=== PATIENT | female | born 1960 | race Caucasian/White ===

== ENCOUNTER 2024-07-15 12:28 | Inpatient (IN) | payer MEDICAID, SELFPAY ==
[2024-07-15] VITALS (13 sets, daily range): BP systolic 135–191; BP diastolic 83–124; PULSE 80–107; RESP 10–29; TEMP 36.5–37.1; O2SAT 91–100; BMI 22.6
--- NOTE | 2024-07-15 14:39 | XR_ITS ---
Examination: AP lateral chest 2 views Technique: Upright AP lateral chest 2 views Exam date and time: July 15, 2024 1414 hrs. Indications: Chest pain today Findings: Normal heart size Lungs are clear. The osseous structures are intact Impression: No active disease
--- NOTE | 2024-07-15 14:39 | EKG_ITS ---
[facility] Test Date: 2024-07-15 Pat Name: OK PETERS Department: Room: - Gender: Female Lab Asst: : 1960 Requested By: Pastora Rodríguez Order Number: [id number] Reading MD: Pastora Rodríguez Measurements Intervals Sch[place]er Rate: 94 P: 71 [place]: 141 QRS: 63 QRSD: 110 T: 38 QT: 356 QTc: 446 Interpretive Statements SINUS RHYTHM NONSPECIFIC ST & T-WAVE ABNORMALITY Compared to ECG 02/16/2023 12:24:50 T-wave abnormality now present /store/S0/[id number].pdf
--- NOTE | 2024-07-15 14:40 | XR_ITS ---
Examination: Hand, right 2 views Technique: Hand AP, lateral 2 views Date and time of exam: July 15, 2024 1510 hrs. Indications: Patient fell 2 days ago with injury to the hand, hand pain Findings: Acute comminuted fractures proximal phalanx fourth digit, 2 mm separation of the main fracture fragments Old fracture fifth metacarpal Impression: Acute fractures proximal phalanx fourth digit
--- NOTE | 2024-07-15 14:40 | PD.EDRME ---
Rapid Medical Screening Exam RME Arrival date/time: 07/15/24 12:28 This is a 63-year-old female that comes in with complaints of vomiting, dizziness, feeling lightheaded, and shortness of breath that has been going on for the past few days. Patient had a fall and injured her right hand. Patient had no loss of consciousness per patient. Patient denies neck or back pain. Patient has a history of hypothyroidism, high blood pressure, high for lipidemia, and reports no surgical history. I have greeted and performed a focused initial assessment of this patient. Initial appropriate labs ordered at this time. A comprehensive ED assessment and evaluation of the patient and analysis of all test and completion of medical decision making process will be conducted by additional ED provider. Chief Complaint: Nausea/Vomiting/Diarrhea Time Seen by Provider: 07/15/24 14:17 Vital signs: Vital Signs Temperature 97.7 F 07/15/24 14:10 Pulse Rate 93 07/15/24 14:10 Respiratory Rate 18 07/15/24 14:10 Blood Pressure 135/83 H 07/15/24 14:10 Pulse Oximetry (%) 98 07/15/24 14:10 Oxygen Delivery Method Room Air 07/15/24 14:10
[2024-07-15 15:16] LABS: Basophils % (Auto) 0 % (0-2.5); Eosinophils # (Auto) 0.1 Thou/mm3 (0.0-0.5); Eosinophils % (Auto) 1 % (0-10); Hematocrit 28.6 % (36.0-46.0); Hemoglobin 9.5 g/dL (12.0-16.0); Immature Granulocytes % (Auto) 0 % (0-0); Immature Granulocytes Auto 0.03 Thou/mm3 (0.00-0.00); Lymphocytes # (Auto) 0.9 Thou/mm3 (1.0-4.8); Lymphocytes % (Auto) 10 % (10-50); Mean Corpuscular HGB Conc 33.2 g/dl (31.0-37.0); Mean Corpuscular Hemoglobin 22.9 pg (25.0-35.0); Mean Corpuscular Volume 69 fL (80-100); Monocytes # (Auto) 0.7 Thou/mm3 (0.0-0.8); Monocytes % (Auto) 8 % (0-12); Neutrophils % (Auto) 81 % (37-80); Nucleated Red Blood Cell % 0 /100 WBC (0); Platelet Count 290 Thou/mm3 (140-440); RDW Standard Deviation 37.3 fL (36.4-46.3); Red Blood Count 4.14 Miln/mm3 (4.00-5.20); White Blood Count 8.7 Thou/mm3 (3.6-11.0)
[2024-07-15 15:40] LABS: B-Type Natriuretic Peptide < 20 pg/mL (0-100)
[2024-07-15 15:45] LABS: Alanine Aminotransferase 17 U/L (10-49); Albumin, Serum 5.1 gm/dL (3.4-4.8); Albumin/Globulin Ratio 1.9 (1.2-2.2); Alkaline Phosphatase 92 U/L (46-116); Anion Gap 10 (7-16); Aspartate Amino Transferase 17 U/L (0-34); BUN/Creatinine Ratio 12 Ratio (12-20); Bilirubin,Total 0.8 mg/dL (0.3-1.2); Blood Urea Nitrogen 20 mg/dL (9-23); Calcium 9.5 mg/dL (8.3-10.6); Calcium (Corrected) 9.5 mg/dL (8.5-10.1); Carbon Dioxide 24.7 mMol/L (20.0-31.0); Chloride 81 mMol/L (98-107); Creatinine (Component) 1.7 mg/dL (0.6-1.3); Estimated Creatinine Clearance 32.1 mL/min (>60); Globulin 2.7 gm/dL (2.3-3.5); Glucose 380 mg/dL (74-106); Lipase 28 U/L (12-53); Osmolality,Calculated 253 (275-295); Potassium 3.5 mMol/L (3.4-5.1); Sodium 116 mMol/L (136-145); Total Protein 7.8 gm/dL (5.7-8.2); Troponin I < 0.020 ng/mL (0.0-0.045); eGFR 34 See Note
--- NOTE | 2024-07-15 18:02 | PD.EDADULT ---
ED General RME/HPI General Chief complaint: Nausea/Vomiting/Diarrhea Stated complaint: NAUSEA AND VOMITING WITH FALL Time Seen by Provider: 07/15/24 14:17 Arrival date/time: 07/15/24 12:28 RME / HPI RME / HPI narrative: 07/15/24 12:28 This is a 63-year-old female that comes in with complaints of vomiting, dizziness, feeling lightheaded, and shortness of breath that has been going on for the past few days. Patient had a fall and injured her right hand. Patient had no loss of consciousness per patient. Patient denies neck or back pain. Patient has a history of hypothyroidism, high blood pressure, high for lipidemia, and reports no surgical history. I have greeted and performed a focused initial assessment of this patient. Initial appropriate labs ordered at this time. A comprehensive ED assessment and evaluation of the patient and analysis of all test and completion of medical decision making process will be conducted by additional ED provider. --------- This section includes all my notes and documentations, including HPI, PE, and ED course. Atul Jolley MD HPI: 63yo female presents to the ED for complaints of nausea and vomiting x 1 week. Patient states she's been feeling generally weak due to having a decreased appetite 2/2 vomiting all week. Patient states yesterday when she was going to the bathroom, she felt weak and dizzy, reporting she fell and hit her right hand on the dresser. She denies any head strikes or loss of consciousness. She endorses having a cough and generalized abdominal pain. She denies any fever, chills or any other associated symptoms. No other symptoms reported. ROS: All negative except as documented in HPI. Physical Exam: General: Alert and oriented. No acute distress when remaining still. Eyes: Conjunctivae and lids clear. ENT: No nasal congestion. Neck: Supple. Heart: RRR. Lungs: No respiratory distress. Good air movement. No rhonchi, wheezing, rales. Abdomen: Soft and nontender. Legs: No clubbing, cyanosis, edema. Skin: Warm and dry. Neuro: Alert and oriented X 3. Cranial nerves II through XII grossly normal. No peripheral motor deficits. Musculoskeletal: Remarkable for right hand tenderness and edema and ecchymosis. All other major joints and bones are not tender with no limited range of motion. I reviewed all diagnostic test results. My interpretation of the EKG is sinus rhythm with nonspecific ST?T changes. My interpretation of the chest x-ray is no acute findings. My interpretation of the right hand x-rays is fourth metacarpal fracture. My review of the head CT report is no acute findings. My review of the abdominal CT report is no acute findings. Blood tests remarkable for Na 117, Cr 1.7, and Glu 380. COVID/influenza/RSV negative. At this point, diagnoses include: Hyponatremia, Hand fracture, right, Fall at home, Vomiting, Generalized weakness, TRISTAN (acute kidney injury), Hyperglycemia Treatment here included IV fluid and IV Zofran and right hand splint. Patient remained stable. I discussed the case with our ICU. About the presentation and exam and diagnostics and treatments here. And need of further care in the hospital. Will accept the patient. Atul Jolley MD Related Data Home Medications ?Medication ?Instructions ?Recorded ?Confirmed levothyroxine 150 mcg tablet 150 mcg PO QDAY 04/29/22 03/22/23 ergocalciferol (vitamin D2) 200 10 mcg PO QDAY 10/21/22 03/22/23 mcg/mL (8,000 unit/mL) oral drops gabapentin 300 mg capsule 300 mg PO HS 01/27/23 03/22/23 trazodone 100 mg tablet 200 mg PO HS 01/27/23 03/22/23 sitagliptin phosphate 50 1 tab PO BID 01/28/23 03/22/23 mg-metformin 1,000 mg tablet (Janumet) buspirone 10 mg tablet 10 mg PO QDAY 03/18/23 03/18/23 hydroxyzine HCl 25 mg tablet 25 mg PO HS 03/18/23 03/18/23 meloxicam 7.5 mg tablet 7.5 mg PO BID PRN Muscle Pain 03/18/23 03/18/23 naproxen 375 mg tablet 375 mg PO TID 03/18/23 03/18/23 simvastatin 80 mg tablet 80 mg PO QDAY 03/18/23 03/18/23 tizanidine 4 mg tablet 4 mg HS PRN Muscle Spasm 03/18/23 03/18/23 Previous Rx's ?Medication ?Instructions ?Recorded amoxicillin 875 mg-potassium 1 tab PO BID #3 tabs 03/23/23 clavulanate 125 mg tablet hydrocodone 5 mg-acetaminophen 325 1 - 2 tab PO Q6H PRN pain #30 tabs 06/20/ mg tablet sodium chloride 1,000 mg soluble 1,000 mg PO QDAY #10 tabs 08/12/23 tablet albuterol sulfate 90 mcg/actuation 1 puff inhalation QID PRN 09/14/23 aerosol inhaler shortness of breath or wheezing #8.5 grams prednisone 50 mg tablet 50 mg PO QDAY #5 tabs 09/14/23 sodium chloride 1,000 mg soluble 1,000 mg PO QDAY #30 tabs 09/14/23 tablet Allergies Allergy/AdvReac Type Severity Reaction Status Date / Time No Known Allergies Allergy Verified 09/14/23 13:05 Review of Systems Review of Systems Systems Reviewed: All systems reviewed, normal except as documented Past Medical History Past Medical History NEUROLOGIC: Positive Cerebrovascular Accident; Negative Neurological Disorders, Seizures or Traumatic Brain Injury CARDIAC: Positive Hypercholesterolemia; Negative Cardiac Disorders, Congestive Heart Failure or Hypertension RESPIRATORY: Negative Chronic Obstructive Pulmonary Disease (COPD) GASTROINTESTINAL: Positive Gastrointestinal Disorders, Colorectal Cancer, Hemorrhoids and Gastroesophageal Reflux Disease; Negative Hepatitis, Gastrointestinal Bleed, Ulcer or Hiatal Hernia GENITOURINARY: Negative Genitourinary Disorders or Renal Disease REPRODUCTIVE: Positive Previous Pregnancies; Negative Pelvic Inflammatory Disease MUSCULOSKELETAL: Positive Musculoskeletal Disorders and Arthritis; Negative Osteoporosis or Fractures ENT: Negative Cataracts, Glaucoma or Deafness ENDOCRINE: Positive Endocrine Disorders, Diabetes Mellitus Type 2 and Hypothyroidism; Negative Diabetes Mellitus Type 1 HEMATOLOGIC: Negative Blood Disorders PSYCHO/SOCIAL: Negative Depression or Anxiety OTHER HISTORY: Positive Chemotherapy, Radiation Therapy, Chicken Pox, Measles, Cancer and Colorectal Cancer; Negative Hospitalization, Autoimmune Disease, Shingles, Blood Transfusions, Anesthesia Reactions, MRSA or Mumps Family History FAMILY HISTORY: Positive Family Cardiac Disorders, Family Cancer and Family Surgery; Negative Family Psychiatric Problems, Family Respiratory Disorders, Family Gastrointestinal Problems or Family Anesthesia Reaction Surgical History SURGICAL: Positive Bowel Surgery and Arthroscopy; Negative Pacemaker Social History SMOKING STATUS: Never smoker SUBSTANCE USE: does not use ED Exam Narrative Physical exam: As noted in HPI. Course Quality Measures none Orders Category Date Time Status Bedside COVID-19 Antigen Test NOW Care 07/15/24 18:07 Active COVID-19 Screening Questionnaire NOW Care 07/15/24 20:39 Active Decision to Admit X1 Care 07/15/24 20:39 Active EKG (ED ONLY) *Do not use* NOW Care 07/15/24 14:39 Completed Saline [Insert IV] NOW Care 07/15/24 18:08 Active Splint / Immobilizer STAT Care 07/15/24 19:52 Active Straight [In and Out Catheter] X1 Care 07/15/24 18:[address] abdomen pelvis wo con Stat Exams 07/15/24 18:[address] head/brain wo con Stat Exams 07/15/24 18:09 Completed EKG (ED Only) Stat Exams 07/15/24 14:39 Draft XR chest 2V Stat Exams 07/15/24 14:39 Completed XR hand RT 2V Stat Exams 07/15/24 14:40 Completed Amylase Stat Lab 07/15/24 15:02 Completed BNP [B-Type Natriuretic Peptide] Stat Lab 07/15/24 15:02 Completed CBC Stat Lab 07/15/24 15:02 Completed Comprehensive Metabolic Panel Stat Lab 07/15/24 15:02 Completed Influenza A & B Rapid Panel Stat Lab 07/15/24 18:48 Completed Lipase Stat Lab 07/15/24 15:02 Completed Magnesium Stat Lab 07/15/24 15:02 Completed RSV [Respiratory Syncytial Virus Ag] Stat Lab 07/15/24 18:46 Completed Troponin I Stat Lab 07/15/24 15:02 Completed Urinalysis, C/S if Indicated Stat Lab 07/15/24 14:40 Ordered Ondansetron Inj [Zofran Inj] Med 07/15/24 18:08 Discontinued 4 mg IV X1 ONE Sodium Chloride 0.9% 1000 ml [Ns] 1,000 ml Med 07/15/24 18:08 Discontinued IV 999 mls/hr Vital Signs Vital signs: Vital Signs Temperature 97.7 F 07/15/24 14:10 Pulse Rate 93 07/15/24 14:10 Respiratory Rate 18 07/15/24 14:10 Blood Pressure 135/83 H 07/15/24 14:10 Pulse Oximetry (%) 98 07/15/24 14:10 Oxygen Delivery Method Room Air 07/15/24 14:10 [facility] Patient data External records reviewed:: [facility] previous records (Per chart review, patient was seen here on 09/14/23 for bronchitis.) Clinical information provided by:: patient Social determinants that could affect healthcare access:: none Patient has the following chronic illnesses:: CVA, DMII, hypothyroidism, GERD How is presenting disease/condition affected by chronic disease/condition?: uneffected by Evaluation data The following diagnostics were reviewed and interpreted by me:: lab results, radiology exam(s) and EKG tracing(s) (My interpretation of the EKG is: Sinus rhythm (94 bpm) with nonspecific ST-T changes. Atul Jolley MD) Lab and/or radiology exams considered but not ordered:: none Interpretation Summary: Hyponatremia, Hand fracture, right, Fall at home, Vomiting, Generalized weakness, TRISTAN (acute kidney injury), Hyperglycemia Medications Medications considered but not ordered:: none Medication administrations:: Medication Administration History Discontinued Medications Sodium Chloride (Ns) 1,000 mls @ 999 mls/hr IV .Q1H1M ONE Stop: 07/15/24 19:08 Last Admin: 07/15/24 19:01 Dose: 999 mls/hr Documented By: NAHID Ondansetron HCl (Ondansetron Inj 2 Mg/Ml Inj 2 Ml) 4 mg IV X1 ONE; Protocol Stop: 07/15/24 18:09 Last Admin: 07/15/24 19:00 Dose: 4 mg Documented By: NAHID IV fluid normal saline and Zofran Consultations Consultation(s) initiated? (list below): Yes Consultation #1 (Physician, Specialty, Details): Discussed case with [the resident physician, attending Dr. De La Fuente] from Hospitalist service regarding admission. Discussed patients ED course, exam findings, labs, and radiology results. The Hospitalist states to call ICU due to the patient's sodium being too low. Time: 20:24 Consultation #2 (Physician, Specialty, Details): Discussed case with [Dr. Lazcano, the ICU resident] from Hospitalist service regarding admission. Discussed patients ED course, exam findings, labs, and radiology results. The Hospitalist [agrees] to accept the patient for admission. Time: 20:27 Diagnosis Differential Diagnosis ED Complaint MDM: fracture, contusion, dehydration, electrolyte abnormality, URI, pneumonia Most likely diagnosis given after review of the tests above:: Hyponatremia, Hand fracture, right, Fall at home, Vomiting, Generalized weakness, TRISTAN (acute kidney injury), Hyperglycemia Admission Indicated Admission indicated?: indicated Explain why admission is indicated or not indicated:: Admission criteria met. Admission Request Was there a request for admission?: Yes Admission Attestation Admission request attestation: Discussed case with ICU service regarding admission. Discussed patients ED course, exam findings, labs, and radiology results. The Hospitalist [agrees,declines] to accept the patient for admission. Disposition Plan Disposition Plan: Admit Medical Decision Making MDM Narrative MDM Narrative: Scribe Attestation: 07/15/24 Keisha Mcfarland am scribing for and in the presence of Dr. Jolley. Differential Diagnosis Differential Diagnosis: fracture, contusion, dehydration, electrolyte abnormality, URI, pneumonia Lab Data 07/15/24 15:02 07/15/24 15:02 Labs: Lab Results 07/15/24 07/15/24 07/15/24 Range/Units 15:02 18:46 18:48 WBC 8.7 (3.6-11.0) Thou/mm3 RBC 4.14 (4.00-5.20) Miln/mm3 Hgb 9.5 L (12.0-16.0) g/dL Hct 28.6 L (36.0-46.0) % MCV 69 L (80-100) fL MCH 22.9 L (25.0-35.0) pg MCHC 33.2 (31.0-37.0) g/dl RDW Std Deviation 37.3 (36.4-46.3) fL Plt Count 290 (140-440) Thou/mm3 Neut % (Auto) 81 H (37-80) % Lymph % (Auto) 10 (10-50) % Saunders % (Auto) 8 (0-12) % Eos % (Auto) 1 (0-10) % Baso % (Auto) 0 (0-2.5) % Neut # (Auto) 7.0 (1.8-7.7) Thou/mm3 Lymph # (Auto) 0.9 L (1.0-4.8) Thou/mm3 Saunders # (Auto) 0.7 (0.0-0.8) Thou/mm3 Eos # (Auto) 0.1 (0.0-0.5) Thou/mm3 Baso # (Auto) 0.0 (0.0-0.2) Thou/mm3 Immature Gran # (Auto) 0.03 H (0.00-0.00) Thou/mm3 Absolute Nucleated RBC 0.00 (0.00-0.00) Thou/mm3 Immature Gran % 0 (0-0) % Nucleated RBC % 0 (0) /100 WBC Sodium 116 L* (136-145) mMol/L Potassium 3.5 (3.4-5.1) mMol/L Chloride 81 L (98-107) mMol/L Carbon Dioxide 24.7 (20.0-31.0) mMol/L Anion Gap 10 (7-16) BUN 20 (9-23) mg/dL Creatinine 1.7 H (0.6-1.3) mg/dL Estim Creat Clear Calc 32.1 L (>60) mL/min eGFR 34 L (60 - ) See Note BUN/Creatinine Ratio 12 (12-20) Ratio Glucose 380 H (74-106) mg/dL Calculated Osmolality 253 L (275-295) Calcium 9.5 (8.3-10.6) mg/dL Corrected Calcium 9.5 (8.5-10.1) mg/dL Magnesium 1.6 (1.6-2.6) mg/dL Total Bilirubin 0.8 (0.3-1.2) mg/dL AST 17 (0-34) U/L ALT 17 (10-49) U/L Alkaline Phosphatase 92 (46-116) U/L Troponin I < 0.020 (0.0-0.045) ng/mL B-Natriuretic Peptide < 20 (0-100) pg/mL Total Protein 7.8 (5.7-8.2) gm/dL Albumin 5.1 H (3.4-4.8) gm/dL Globulin 2.7 (2.3-3.5) gm/dL Albumin/Globulin Ratio 1.9 (1.2-2.2) Amylase 48 (30-118) U/L Lipase 28 (12-53) U/L Influenza A (Rapid) Negative Influenza B (Rapid) Negative RSV Rapid Negative (Negative) Discharge Plan Plan Patient Disposition: Admit Acute Care w/in Hospital Prescriptions/Referrals Prescriptions/Med Rec: No Action levothyroxine 150 mcg tablet 150 mcg PO QDAY Patient Comments: TAKE 1 TABLET BY MOUTH EVERY DAY ergocalciferol (vitamin D2) 200 mcg/mL (8,000 unit/mL) Drops 10 mcg PO QDAY trazodone 100 mg Tablet 200 mg PO HS gabapentin 300 mg Capsule 300 mg PO HS Janumet 50-1,000 mg tablet 1 tab PO BID Patient Comments: TAKE 1 TABLET BY MOUTH TWICE A DAY hydrocodone-acetaminophen 5-325 mg tablet 1 - 2 tab PO Q6H MDD 8 PRN (Reason: pain) Qty: 30 0RF sodium chloride 1,000 mg tablet,soluble 1,000 mg PO QDAY Qty: 10 0RF prednisone 50 mg tablet 50 mg PO QDAY Qty: 5 0RF albuterol sulfate 90 mcg/actuation HFA aerosol inhaler 1 puff inhalation QID PRN (Reason: shortness of breath or wheezing) Qty: 8.5 0RF sodium chloride 1,000 mg tablet,soluble 1,000 mg PO QDAY Qty: 30 0RF meloxicam 7.5 mg tablet 7.5 mg PO BID PRN (Reason: Muscle Pain) naproxen 375 mg tablet 375 mg PO TID Patient Comments: 1 TABLET 3 TIMES A DAY tizanidine 4 mg Tablet 4 mg HS PRN (Reason: Muscle Spasm) simvastatin 80 mg tablet 80 mg PO QDAY Patient Comments: TAKE 1 TABLET BY MOUTH EVERY DAY buspirone 10 mg tablet 10 mg PO QDAY Patient Comments: TAKE 1 TABLET BY MOUTH EVERY DAY hydroxyzine HCl 25 mg tablet 25 mg PO HS Patient Comments: TAKE 1 TABLET BY MOUTH EVERYDAY AT NIGHT amoxicillin-pot clavulanate 875-125 mg tablet 1 tab PO BID Qty: 3 0RF Referrals: Magdalene Aquino CARDIAC EXERCISE PHYSIOLOGIST [Primary Care Provider] - In 1 week Problem List Clinical Impression: Hyponatremia, Hand fracture, right, Fall at home, Vomiting, Generalized weakness, TRISTAN (acute kidney injury), Hyperglycemia Patient/Caregiver Discharge Instructions Print Language: Pakistani Stand Alone Forms: [facility] Award Info., Patient Portal Info Letter
--- NOTE | 2024-07-15 18:09 | XR_ITS ---
Examination: CT abdomen and pelvis without contrast. Coronal 3-D reconstructions. Sagittal 2-D reconstructions. Date and time of exam:July 15, 2024 1913 hrs. Comparison September 14, 2023 Indications: Nausea vomiting beginning 4 days ago CTDI: vol (mGy): 10.9 DLP: (mGycm): 651 Technique: Axial images of the abdomen have been obtained, 3 mm slice thickness Intravenous contrast material has not been administered. Low dose protocols were performed. One or more of the following dose reduction techniques were used; automated exposure control, adjustment of the mA and/or KV according to patient size, use of iterative reconstruction technique. Findings: No focal liver or splenic lesion No definite gallstones No pancreatic mass Perinephric stranding Mild to moderate bilateral renal parenchymal scar formation Aorta normal size No pericecal inflammatory change Abundant air and stool in the rectosigmoid No diverticulitis Urinary bladder intact Absent uterus Prominent osteopenia Impression: Perinephric stranding with mild to moderate bilateral renal parenchymal scar formation, no hydronephrosis or ureteral calculi No CT findings of bowel obstruction diverticulitis or appendicitis
--- NOTE | 2024-07-15 18:09 | XR_ITS ---
Examination: CT brain head without contrast. 2-D sagittal coronal reconstructions Date and time of exam:July 15, 2024 1911 hrs. Indications: Onset weakness beginning 4 days ago Comparison: February 16, 2023 CTDI: vol (mGy):45.2 DLP: (mGycm):905 Technique: Multiple CT axial sections of the brain have been obtained, 5 mm slice thickness. Contrast has not been administered. 2-D sagittal, coronal reconstructions have been obtained Low dose protocols were performed. One or more of the following dose reduction techniques were used; automated exposure control, adjustment of the mA and/or KV according to patient size, use of iterative reconstruction technique. Findings: No significant ventricular enlargement. Fairly prominent chronic microvascular white matter change Intra-axial or extra-axial hemorrhage density is not seen. No mass effect or midline shift Basal cisterns are not remarkable. Fourth ventricle is midline. Cranial vault intact. Impression: Negative for acute hemorrhage, mass effect or midline shift Advise clinical correlation and follow-up accordingly
[2024-07-15] MEDS: ONDANSETRON INJ 2 MG/ML INJ 2 ML 4 MG IV (19:00)
[2024-07-15] MEDS: SODIUM CHLORIDE 0.9% 1000 ML 1,000 ML 999 ML IV ×2 (19:01→23:39)
[2024-07-15 19:17] LABS: Amylase 48 U/L (30-118); Magnesium 1.6 mg/dL (1.6-2.6)
[2024-07-15 19:32] LABS: Influenza A Ag Negative; Influenza B Ag Negative
[2024-07-15 19:35] LABS: Respiratory Syncytial Virus Ag Negative (Negative)
[2024-07-15 22:30] LABS: Beta Hydroxybutyrate 0.1 mmol/L (<0.6)
[2024-07-15 22:59] LABS: Alanine Aminotransferase 13 U/L (10-49); Albumin, Serum 4.4 gm/dL (3.4-4.8); Albumin/Globulin Ratio 1.6 (1.2-2.2); Alkaline Phosphatase 85 U/L (46-116); Anion Gap 12 (7-16); Aspartate Amino Transferase 25 U/L (0-34); BUN/Creatinine Ratio 12 Ratio (12-20); Bilirubin,Total 0.7 mg/dL (0.3-1.2); Blood Urea Nitrogen 21 mg/dL (9-23); Calcium 9.2 mg/dL (8.3-10.6); Calcium (Corrected) 9.2 mg/dL (8.5-10.1); Carbon Dioxide 22.8 mMol/L (20.0-31.0); Chloride 88 mMol/L (98-107); Creatinine (Component) 1.7 mg/dL (0.6-1.3); Estimated Creatinine Clearance 32.1 mL/min (>60); Globulin 2.7 gm/dL (2.3-3.5); Glucose 332 mg/dL (74-106); Osmolality,Calculated 263 (275-295); Potassium 3.2 mMol/L (3.4-5.1); Sodium 123 mMol/L (136-145); Total Protein 7.1 gm/dL (5.7-8.2); eGFR 34 See Note
[2024-07-15 23:04] LABS: Base Excess -1 (-3-3); HCO3 24 mEq/L (20-26); Inspired Oxygen, FIO2 21 %; O2 Saturation 93 % (91-98); PCO2 39 mmHg (32.0-48.0); PO2 64 mmHg (83-108)
[2024-07-15 23:05] LABS: Allen Test Performed/OK; Puncture Site Right Brachial
[2024-07-15] MEDS: HEPARIN SOD INJ 5000 UNIT/ML VIAL SC (23:30)
[2024-07-15] MEDS: cefTRIAXone/D5w 1gm IV premix 50 ML IV (23:30)
[2024-07-15] MEDS: HYDROcodone/APAP 5/325 TABLET 1 TAB PO (23:37)
[2024-07-15] MEDS: Magnesium Sulfate 2 GM Ivpb 2 GM/50 ML BAG IV (23:56)
[2024-07-15] MEDS: POTASSIUM CHLORIDE 20 mEq TABCR 40 MEQ PO (23:56)
[2024-07-16] VITALS (13 sets, daily range): BP systolic 126–194; BP diastolic 68–117; PULSE 85–114; RESP 15–20; TEMP 36.7–37.3; O2SAT 88–100
--- NOTE | 2024-07-16 00:07 | ESHP_ITS ---
<Statement entered by Fer De La Fuente MD - 07/16/24 22:06> I Fer De La Fuente MD reviewed the note and agree with the resident's assessment & plan with exceptions as below. I have personally reviewed labs, imaging, home meds/prior records, examined the patient, formulated and discussed management plan with the IM team. A 63-year-old F with Hx of DM hypothyroidism, history of colon resection presented to ED with nausea, vomiting, drowsiness and decrease p.o. intake for past week. Patient noted to have severe symptomatic hypovolemic, hypoosmolar, hyponatremia likely due to extrarenal losses. CT abdomen/pelvis also did not reveal perinephric stranding concerning for pyelonephritis. Administer 3% saline 100 mL x 1 and start on maintenance NS at 125 mL an hour with serum sodium check every 2 hours.. Will start on Rocephin for pyelonephritis. Documentation for date of: 07/16/24 HPI History of Present Illness History of present illness: 63-year-old woman with past medical history of diabetes mellitus type 2, hyperlipidemia, hypothyroidism and colon cancer s/p resection came to the ED due to chief complaint of vomiting, poor oral intake and generalized weakness for 1 week associated to mild abdominal pain and nonproductive cough. she also stated that she was feeling dizzy and sustained a fall injuring her right hand twice she denied LOC. patient denied chest pain, dysuria, melena, hematemesis or any other associated symptoms different than the mentioned above. ED course: Initial vitals: Blood pressure 135/83 HR 93 RR 18 afebrile SpO2 98% on room air Pertinent labs: Hgb 9.5 HCT 28.6, ABGs unremarkable 116, creatinine 1.7, glucose 380, osmolality 263, beta-hydroxybutyrate negative, influenza, COVID and RSV negative Imaging: Chest x-ray was negative for acute disease, hand x-ray showed Acute fractures proximal phalanx fourth digit, CT head was negative, CT abdomen pelvis showed Perinephric stranding with mild to moderate bilateral renal parenchymal scar, formation, no hydronephrosis or ureteral calculi, EKG sinus rhythm no acute ST changes or T wave inversions per my interpretation At the ED the patient received: 1 L bolus NS, The patient will be admitted for further treatment and management of acute symptomatic hypoosmolar hyponatremia and pyelonephritis. Review of Systems Review of Systems Systems Reviewed: All systems reviewed, normal except as documented Past Medical History Past Medical History NEUROLOGIC: Positive Cerebrovascular Accident; Negative Neurological Disorders, Seizures or Traumatic Brain Injury CARDIAC: Positive Hypercholesterolemia; Negative Cardiac Disorders, Congestive Heart Failure or Hypertension RESPIRATORY: Negative Chronic Obstructive Pulmonary Disease (COPD) GASTROINTESTINAL: Positive Gastrointestinal Disorders, Colorectal Cancer, Hemorrhoids and Gastroesophageal Reflux Disease; Negative Hepatitis, Gastrointestinal Bleed, Ulcer or Hiatal Hernia GENITOURINARY: Negative Genitourinary Disorders or Renal Disease REPRODUCTIVE: Positive Previous Pregnancies; Negative Pelvic Inflammatory Disease MUSCULOSKELETAL: Positive Musculoskeletal Disorders and Arthritis; Negative Osteoporosis or Fractures ENT: Negative Cataracts, Glaucoma or Deafness ENDOCRINE: Positive Endocrine Disorders, Diabetes Mellitus Type 2 and Hypothyroidism; Negative Diabetes Mellitus Type 1 HEMATOLOGIC: Negative Blood Disorders PSYCHO/SOCIAL: Negative Depression or Anxiety OTHER HISTORY: Positive Chemotherapy, Radiation Therapy, Chicken Pox, Measles, Cancer and Colorectal Cancer; Negative Hospitalization, Autoimmune Disease, Shingles, Blood Transfusions, Anesthesia Reactions, MRSA or Mumps Family History FAMILY HISTORY: Positive Family Cardiac Disorders, Family Cancer and Family Surgery; Negative Family Psychiatric Problems, Family Respiratory Disorders, Family Gastrointestinal Problems or Family Anesthesia Reaction Surgical History SURGICAL: Positive Bowel Surgery and Arthroscopy; Negative Pacemaker Social History SMOKING STATUS: Never smoker SUBSTANCE USE: does not use Exam Vital Signs Temp Pulse Resp BP Pulse Ox O2 Del Method 97.8 F 82 20 165/95 H 99 Room Air 07/15/24 23:41 07/15/24 23:41 07/15/24 23:41 07/15/24 23:41 07/15/24 23:41 07/15/24 23:41 Narrative Exam General: No acute distress, well appearing, alert, interactive. HEENT: NC/AT, PERRL, EOMI, Good conjugate gaze, dry mucous membranes, oropharynx clear. Neck: Supple, No masses, No adenopathy, carotid pulse 2+ bilaterally without bruits, No JVD, normal range of motion. Chest: Symmetrical, atraumatic, and with equal expansion , Nontender on palpation no deformity and no crepitus. CVS: S1 and S2 present, Regular rate and rhythm, No murmurs, rubs or gallops perceived during auscultation. Lungs: Normal respiratory effort, CTAB, no wheezing, rhonchi or rales perceived during auscultation, No intercostal or subcostal retraction. Abdomen : Soft, mild tenderness to palpation in all abdominal quadrants, no guarding ,no rebound, +BS Extremities: Right hand with immobilizer no edema, warm well perfused, normal tone and ROM, strength and sensation intact, cap refill less than 2, +2 dp equal bilaterally, able to move all 4 extremities spontaneously. Skin: Intact, no rashes, no lesions, no erythema or jaundice noted Neuro: AOx4, reflex symmetric and sensation normal, no focal neurologic deficits noted, GCS 15 Psych: Appropriate mood and affect. Results: Labs 07/15/24 15:02 07/16/24 02:25 Labs: Short CBC 07/15/24 Range/Units 15:02 WBC 8.7 (3.6-11.0) Thou/mm3 Hgb 9.5 L (12.0-16.0) g/dL Hct 28.6 L (36.0-46.0) % Plt Count 290 (140-440) Thou/mm3 BMP 07/15/24 07/15/24 15:02 22:16 Sodium 116 L* 123 L Potassium 3.5 3.2 L Chloride 81 L 88 L Carbon Dioxide 24.7 22.8 BUN 20 21 Creatinine 1.7 H 1.7 H Glucose 380 H 332 H Calcium 9.5 9.2 Cardiac Enzymes 07/15/24 Range/Units 15:02 Troponin I < 0.020 (0.0-0.045) ng/mL Liver Function 07/15/24 07/15/24 Range/Units 15:02 22:16 Total Bilirubin 0.8 0.7 (0.3-1.2) mg/dL AST 17 25 (0-34) U/L ALT 17 13 (10-49) U/L Alkaline Phosphatase 92 85 (46-116) U/L Albumin 5.1 H 4.4 D (3.4-4.8) gm/dL ABG Interpretation ABG results: 07/15/24 22:58 ABG pH 7.40 ABG pCO2 39 ABG pO2 64 L ABG HCO3 24 ABG O2 Saturation 93 ABG Base Excess -1 Quality Measures Quality Measures none Medications Home Medications and Allergies Home Medications ?Medication ?Instructions ?Recorded ?Confirmed ?Type levothyroxine 150 mcg tablet 150 mcg PO QDAY 04/29/22 03/22/23 History ergocalciferol (vitamin D2) 200 10 mcg PO QDAY 10/21/22 03/22/23 History mcg/mL (8,000 unit/mL) oral drops gabapentin 300 mg capsule 300 mg PO HS 01/27/23 03/22/23 History trazodone 100 mg tablet 200 mg PO HS 01/27/23 03/22/23 History sitagliptin phosphate 50 1 tab PO BID 01/28/23 03/22/23 History mg-metformin 1,000 mg tablet (Janumet) buspirone 10 mg tablet 10 mg PO QDAY 03/18/23 03/18/23 History hydroxyzine HCl 25 mg tablet 25 mg PO HS 03/18/23 03/18/23 History meloxicam 7.5 mg tablet 7.5 mg PO BID PRN Muscle Pain 03/18/23 03/18/23 History naproxen 375 mg tablet 375 mg PO TID 03/18/23 03/18/23 History simvastatin 80 mg tablet 80 mg PO QDAY 03/18/23 03/18/23 History tizanidine 4 mg tablet 4 mg HS PRN Muscle Spasm 03/18/23 03/18/23 History Allergies Allergy/AdvReac Type Severity Reaction Status Date / Time No Known Allergies Allergy Verified 09/14/23 13:05 Visit Medications Acetaminophen (Acetaminophen 325 Mg Tablet) 650 mg PO Q4HR PRN PRN Reason: Pain Scale 1-3 fever 100.4 Stop: 08/14/24 21:41 Hydrocodone Bitart/Acetaminophen (Hydrocodone/Apap 5/325 Tablet) 1 tab PO Q6HR PRN PRN Reason: PAIN SCALE 4-10(Mod-Sev Stop: 07/20/24 22:07 Last Admin: 07/15/24 23:37 Dose: 1 tab Dextrose (Dextrose 50%-Water Inj 50 Ml Syringe) 25 ml IV Q15MIN PRN PRN Reason: BG 50-70 responsive npo pt Stop: 08/14/24 23:47 Dextrose (Dextrose 50%-Water Inj 50 Ml Syringe) 50 ml IV Q15MIN PRN PRN Reason: BG <50 OR BG <70 & pt unresponsive Stop: 08/14/24 23:47 Glucagon (Glucagon Inj 1 Mg Vial) 1 mg IM Q15MIN PRN PRN Reason: BG <70, and no IV access Heparin Sodium (Porcine) (Heparin Sod Inj 5000 Unit/Ml Vial) 5,000 unit SC Q8HR [facility] Stop: 07/29/24 21:59 Last Admin: 07/15/24 23:30 Dose: 5,000 unit Ceftriaxone Sodium/Dextrose (Rocephin/D5w 1gm Iv Premix) 50 mls @ 100 mls/hr IV QDAY [facility] Stop: 07/23/24 08:59 Magnesium Sulfate (Magnesium Sulfate Ivpb) 2 gm in 50 mls @ 25 mls/hr IV X1 ONE Stop: 07/16/24 01:36 Last Admin: 07/15/24 23:56 Dose: 25 mls/hr Sodium Chloride (Ns) 1,000 mls @ 50 mls/hr IV .Q20H [facility] Stop: 07/16/24 20:14 Insulin Human Lispro (Insulin Lispro (Admelog) 1 Unit/0.01 Ml Unit) 0 unit SC ACHS [facility]; Protocol Stop: 08/15/24 07:29 Ondansetron HCl (Ondansetron Inj 2 Mg/Ml Inj 2 Ml) 4 mg IV Q6HR PRN PRN Reason: NAUSEA OR VOMITING Stop: 08/14/24 21:55 Pantoprazole Sodium (Pantoprazole Inj 40 Mg Vial) 40 mg IVP QDAY [facility] Stop: 08/15/24 08:59 Discontinued Medications Sodium Chloride (Ns) 1,000 mls @ 999 mls/hr IV .Q1H1M ONE Stop: 07/15/24 19:08 Last Infusion: 07/15/24 21:40 Dose: Infused Sodium Chloride (Ns) 1,000 mls @ 999 mls/hr IV .Q1H1M ONE Stop: 07/15/24 23:07 Last Admin: 07/15/24 23:39 Dose: 999 mls/hr Ceftriaxone Sodium/Dextrose (Rocephin/D5w 1gm Iv Premix) 50 mls @ 100 mls/hr IV X1 ONE Stop: 07/15/24 22:38 Last Admin: 07/15/24 23:28 Dose: Not Given Ceftriaxone Sodium/Dextrose (Rocephin/D5w 1gm Iv Premix) 50 mls @ 100 mls/hr IV X1 ONE Stop: 07/15/24 22:59 Last Infusion: 07/16/24 00:04 Dose: Infused Ondansetron HCl (Ondansetron Inj 2 Mg/Ml Inj 2 Ml) 4 mg IV X1 ONE; Protocol Stop: 07/15/24 18:09 Last Admin: 07/15/24 19:00 Dose: 4 mg Potassium Chloride (Potassium Chloride 20 Meq Tabcr) 40 meq PO X1 ONE Stop: 07/15/24 23:39 Last Admin: 07/15/24 23:56 Dose: 40 meq Assessment & Plan Plan 63-year-old woman with past medical history of diabetes mellitus type 2, hyperlipidemia, hypothyroidism and colon cancer s/p resection came to the ED due to chief complaint of vomiting, poor oral intake and generalized weakness for 1 week associated to mild abdominal pain and nonproductive cough. she also stated that she was feeling dizzy and sustained a fall injuring her right hand twice she denied LOC. patient denied chest pain, dysuria, melena, hematemesis or any other associated symptoms different than the mentioned above. ED course: Initial vitals: Blood pressure 135/83 HR 93 RR 18 afebrile SpO2 98% on room air Pertinent labs: Hgb 9.5 HCT 28.6, ABGs unremarkable 116, creatinine 1.7, glucose 208, osmolality 263, beta-hydroxybutyrate negative, influenza, COVID and RSV negative Imaging: Chest x-ray was negative for acute disease, hand x-ray showed Acute fractures proximal phalanx fourth digit, CT head was negative, CT abdomen pelvis showed Perinephric stranding with mild to moderate bilateral renal parenchymal scar, formation, no hydronephrosis or ureteral calculi, EKG sinus rhythm no acute ST changes or T wave inversions per my interpretation. At the ED the patient received:1 L bolus NS, The patient will be admitted for further treatment and management of acute symptomatic hypoosmolar hyponatremia and pyelonephritis. [employer]: #Dizziness Possibly secondary to dehydration and symptomatic hyponatremia CT head was negative ? Follow-up Na+ every 4 hours CVS: Stable PULM: Stable GI: #Intractable nausea and vomiting Possibly secondary to pyelonephritis vs viral infection? Patient stated that has been presenting nausea and vomiting as well as poor p.o. intake for 1 week ? IV ondansetron as needed for nausea and vomiting RENAL: #Hypoosmolar hyponatremia Most likely secondary to dehydration and hyperglycemia Na+ 116 glucose 380 corrected sodium for hyperglycemia 121 Nephrology was consulted we greatly appreciate recommendations ? IV fluids NS 0.9% 50 cc/h ? Follow-up Na+ every 4 hours ? Avoid overcorrection of Na+ 4 to 6 mEq in 24 hours ? Follow-up CMP #TRISTAN Most likely prerenal in the setting of severe dehydration and poor oral intake Creatinine 1.7 (baseline creatinine 1.0) - IV fluids NS at 50 cc/h - Strict ins and outs - Avoid nephrotoxic drugs - Renally dose medications - Follow-up CMP #Electrolyte imbalance ? Follow-up electrolytes and replete as necessary ENDO: #Diabetes mellitus type 2 Hold home medications ? Accu-Cheks ? Sliding scale insulin ? Hypoglycemia protocol in place #Hyperglycemia Glucose 380 ? Sliding scale insulin ? Continue to monitor closely HEME/ONC: #Acute on chronic anemia Possibly secondary to CKD vs anemia of chronic diseases ? Follow-up CBC ? Transfuse if hemoglobin less than 7 ID: #Pyelonephritis No leukocytosis UA no WBCs, RBCs 4, negative for bacteria otherwise CT abdomen pelvis showed Perinephric stranding with mild to moderate bilateral renal parenchymal scar, formation, no hydronephrosis or ureteral calculi ? IV Rocephin 1 g daily ? Follow-up urine cultures ? Follow-up CBC and CMP MSK: #Right hand injury #Acute fracture of proximal phalanx of fourth digit Secondary to fall hand x-ray showed Acute fractures proximal phalanx fourth digit ? [place] every 6 hours as needed for pain ? IV morphine 1 mg every 4 hours ? Consider orthopedic surgery consult for further recommendations SKIN: Stable FEN: Carbohydrate consistent diet Lines: Peripheral DVT prophylaxis: Heparin GI prophylaxis: Protonix CODE STATUS: DNR Patient discussed with my attending Dr Sudhakar Lazcano MD PGY-3 Disclaimer: Despite multiple revisions, due to the dictation software being used, the document bellow may not be free of grammatical errors including phonetic/typographic errors. However, this does not deter from our commitment to providing health care in the patient's best interest in mind.
[2024-07-16] MEDS: SODIUM CHLORIDE 0.9% 1000 ML 1,000 ML 50 ML IV (01:26)
[2024-07-16 02:51] LABS: Sodium 122 mMol/L (136-145)
[2024-07-16] MEDS: HEPARIN SOD INJ 5000 UNIT/ML VIAL SC ×2 (05:56→23:00)
[2024-07-16] MEDS: LEVOTHYROXINE SODIUM 25 MCG TABLET 125 MCG PO (05:56)
[2024-07-16 05:57] LABS: INR 0.9 (0.9-1.3); Prothrombin Time 10.4 Seconds (9.0-12.2)
[2024-07-16 06:29] LABS: Basophils % (Auto) 0 % (0-2.5); Eosinophils # (Auto) 0.1 Thou/mm3 (0.0-0.5); Eosinophils % (Auto) 1 % (0-10); Hematocrit 25.1 % (36.0-46.0); Immature Granulocytes % (Auto) 0 % (0-0); Immature Granulocytes Auto 0.03 Thou/mm3 (0.00-0.00); Lymphocytes # (Auto) 1.1 Thou/mm3 (1.0-4.8); Lymphocytes % (Auto) 13 % (10-50); Mean Corpuscular HGB Conc 33.1 g/dl (31.0-37.0); Mean Corpuscular Hemoglobin 23.2 pg (25.0-35.0); Mean Corpuscular Volume 70 fL (80-100); Monocytes # (Auto) 0.8 Thou/mm3 (0.0-0.8); Monocytes % (Auto) 9 % (0-12); Neutrophils # (Auto) 6.7 Thou/mm3 (1.8-7.7); Neutrophils % (Auto) 77 % (37-80); Nucleated Red Blood Cell % 0 /100 WBC (0); Platelet Count 240 Thou/mm3 (140-440); RDW Standard Deviation 37.9 fL (36.4-46.3); Red Blood Count 3.57 Miln/mm3 (4.00-5.20); White Blood Count 8.8 Thou/mm3 (3.6-11.0)
[2024-07-16 06:32] LABS: Alanine Aminotransferase 14 U/L (10-49); Albumin, Serum 4.4 gm/dL (3.4-4.8); Albumin/Globulin Ratio 1.8 (1.2-2.2); Alkaline Phosphatase 81 U/L (46-116); Anion Gap 11 (7-16); Aspartate Amino Transferase 27 U/L (0-34); BUN/Creatinine Ratio 14 Ratio (12-20); Bilirubin,Total 0.6 mg/dL (0.3-1.2); Blood Urea Nitrogen 21 mg/dL (9-23); Calcium 9.1 mg/dL (8.3-10.6); Calcium (Corrected) 9.1 mg/dL (8.5-10.1); Carbon Dioxide 23.5 mMol/L (20.0-31.0); Chloride 90 mMol/L (98-107); Creatinine (Component) 1.5 mg/dL (0.6-1.3); Estimated Creatinine Clearance 36.4 mL/min (>60); Globulin 2.4 gm/dL (2.3-3.5); Glucose 295 mg/dL (74-106); Magnesium 2.2 mg/dL (1.6-2.6); Osmolality,Calculated 263 (275-295); Phosphorous 3.8 mg/dL (2.4-5.1); Potassium 3.5 mMol/L (3.4-5.1); Sodium 124 mMol/L (136-145); Total Protein 6.8 gm/dL (5.7-8.2); eGFR 39 See Note
[2024-07-16 06:37] LABS: Hemoglobin 8.3 g/dL (12.0-16.0)
[2024-07-16] MEDS: RINGERS LACTATED 1000 ML 1,000 ML 50 ML IV (08:00)
[2024-07-16] MEDS: HYDROcodone/APAP 5/325 TABLET 1 TAB PO (08:01)
[2024-07-16] MEDS: PANTOPRAZOLE INJ 40 MG VIAL IVP (08:01)
[2024-07-16] MEDS: INSULIN LISPRO (AdmeLOG) 1 UNIT/0.01 ML UNIT SC ×3 (08:05→23:07)
--- NOTE | 2024-07-16 09:13 | PC.NURSE ---
called ICU doc. he will eval pt and most likey down grade to TELE
--- NOTE | 2024-07-16 09:29 | EVENTNT_ITS ---
<Statement entered by Riccardo Hagan MD - 07/16/24 15:31> Care will be assumed by the medical team from tomorrow 17 July 2024. - Patient's plan and care discussed with my attending, Dr. Jay Hagan MD Internal Medicine PGY-2 Documentation for date of: 07/16/24 Event Note Event Note: Sima is a 63-year-old woman with past medical history of diabetes mellitus type 2, hyperlipidemia, hypothyroidism and colon cancer s/p resection who is currently admitted for symptomatic hyponatremia, level of 116 while in the ED, however glucose was ~380, calculated corrected sodium to be 121 is being downgraded to the floors. Pt is currently on LR 50 cc/hr, last sodium check is 124. Head CT negative for any acute process. Pt's care will be resumed by care of internal medicine team starting tomorrow, 07/17. Pt will need orthopedic eval for fractures of proximal phalanx of fourth digit, R hand. Patient seen and care discussed with my senior resident, Dr. Hagan, and my attending physician, Dr. Jay John, PGY-1
[2024-07-16 10:31] LABS: Sodium 128 mMol/L (136-145)
[2024-07-16 10:46] LABS: Glucose Estimated Average 235 mg/dL (80-131); Hemoglobin A1C 9.8 % Hgb (4.8-6.0)
--- NOTE | 2024-07-16 11:13 | PD.NEPHCONS ---
History of Present Illness Data of Consult Consult date: 07/16/24 Requesting Physician: Fer De La Fuente MD Primary Care Provider: Magdalene Aquino NP Consult Narrative Reason for consult: Hyponatremia History of present illness: Ms. hung is a 63-year-old woman with past medical history of diabetes mellitus type 2, hyperlipidemia, hypothyroidism, anxiety, neuropathy and colon cancer s/p resection came to the ED due to chief complaint of vomiting, loose stools, poor oral intake and generalized weakness for 1 week associated to mild abdominal pain and nonproductive cough. she also stated that she was feeling dizzy and sustained a fall injuring her right hand twice. she denied LOC. patient denied chest pain, dysuria, melena, hematemesis. Home medications included albuterol Augmentin BuSpar vitamin D, gabapentin, [place], hydroxyzine, Janumet, levothyroxine, meloxicam, naproxen, prednisone, simvastatin, salt tabs, tizanidine, trazodone Of note patient was noted to have on and off episodes of hyponatremia needing salt tablets. In the emergency department sodium 119, Hgb 9.5 HCT 28.6, ABGs unremarkable 116, creatinine 1.7, glucose 380, osmolality 263, beta-hydroxybutyrate negative, influenza, COVID and RSV negative Imaging: Chest x-ray was negative for acute disease, hand x-ray showed Acute fractures proximal phalanx fourth digit, CT head was negative, CT abdomen pelvis showed Perinephric stranding with mild to moderate bilateral renal parenchymal scar, formation, no hydronephrosis or ureteral calculi, EKG sinus rhythm no acute ST changes or T wave inversions per my interpretation Normal saline was started and patient admitted for symptomatic hyponatremia. Renal consultation requested for hyponatremia. Patient currently seen in the emergency department. She seems to be more alert and awake although nurse stated that on and off she is having episodes of agitation. When I saw her she is completely alert and awake. However her sodium tessie from 119-126 and I started her on D5W to avoid overcorrection cc:: cc: Fer De La Fuente MD Review of Systems Review of Systems Narrative Review of Systems: CONSTITUTIONAL: Patient denies any fever, chills. Complaining of fatigue HEENT: Denies any visual disturbances or hearing problems. CARDIOVASCULAR: Patient denies any chest pain, shortness of breath, swelling in the lower extremities. PULMONARY: Patient denies any shortness of breath, cough. GASTROINTESTINAL: Patient denies any abdominal pain, constipation, nausea, vomiting, diarrhea. GENITOURINARY: Patient denies any urinary symptoms of burning or frequency or hematuria, denies any form in the urine. SKIN: Denies any rash. MUSCULOSKELETAL: Status post fall with right hand pain NEUROLOGICAL: Denies any neurological problems of strokes, seizures or confusion. Denies any memory problems. Per RN on and off agitation PSYCHIATRIC: History of depression or anxiety. Past Medical History Past Medical History NEUROLOGIC: Positive Cerebrovascular Accident; Negative Neurological Disorders, Seizures or Traumatic Brain Injury CARDIAC: Positive Hypercholesterolemia; Negative Cardiac Disorders, Congestive Heart Failure or Hypertension RESPIRATORY: Negative Chronic Obstructive Pulmonary Disease (COPD) GASTROINTESTINAL: Positive Gastrointestinal Disorders, Colorectal Cancer, Hemorrhoids and Gastroesophageal Reflux Disease; Negative Hepatitis, Gastrointestinal Bleed, Ulcer or Hiatal Hernia GENITOURINARY: Negative Genitourinary Disorders or Renal Disease REPRODUCTIVE: Positive Previous Pregnancies; Negative Pelvic Inflammatory Disease MUSCULOSKELETAL: Positive Musculoskeletal Disorders and Arthritis; Negative Osteoporosis or Fractures ENT: Negative Cataracts, Glaucoma or Deafness ENDOCRINE: Positive Endocrine Disorders, Diabetes Mellitus Type 2 and Hypothyroidism; Negative Diabetes Mellitus Type 1 HEMATOLOGIC: Negative Blood Disorders PSYCHO/SOCIAL: Negative Depression or Anxiety OTHER HISTORY: Positive Chemotherapy, Radiation Therapy, Chicken Pox, Measles, Cancer and Colorectal Cancer; Negative Hospitalization, Autoimmune Disease, Shingles, Blood Transfusions, Anesthesia Reactions, MRSA or Mumps Family History FAMILY HISTORY: Positive Family Cardiac Disorders, Family Cancer and Family Surgery; Negative Family Psychiatric Problems, Family Respiratory Disorders, Family Gastrointestinal Problems or Family Anesthesia Reaction Surgical History SURGICAL: Positive Throat Surgery (THYROIDECTOMY), Bowel Surgery and Arthroscopy (right knee); Negative Pacemaker Social History SMOKING STATUS: Never smoker SUBSTANCE USE: does not use Meds Home Medications and Allergies Home Medications ?Medication ?Instructions ?Recorded ?Confirmed ?Type levothyroxine 150 mcg tablet 150 mcg PO QDAY 04/29/22 07/16/24 History ergocalciferol (vitamin D2) 200 10 mcg PO QDAY 10/21/22 07/16/24 History mcg/mL (8,000 unit/mL) oral drops gabapentin 300 mg capsule 300 mg PO HS 01/27/23 07/16/24 History trazodone 100 mg tablet 200 mg PO HS 01/27/23 07/16/24 History sitagliptin phosphate 50 1 tab PO BID 01/28/23 07/16/24 History mg-metformin 1,000 mg tablet (Julvaleria) buspirone 10 mg tablet 10 mg PO QDAY 03/18/23 07/16/24 History hydroxyzine HCl 25 mg tablet 25 mg PO HS 03/18/23 07/16/24 History meloxicam 7.5 mg tablet 7.5 mg PO BID PRN Muscle Pain 03/18/23 07/16/24 History naproxen 375 mg tablet 375 mg PO TID 03/18/23 07/16/24 History simvastatin 80 mg tablet 80 mg PO QDAY 03/18/23 07/16/24 History tizanidine 4 mg tablet 4 mg HS PRN Muscle Spasm 03/18/23 07/16/24 History Allergies Allergy/AdvReac Type Severity Reaction Status Date / Time No Known Allergies Allergy Verified 09/14/23 13:05 Exam Vital Signs Temp Pulse Resp BP Pulse Ox O2 Del Method 36.7 C 108 H 20 129/87 H 92 L Room Air 07/16/24 10:25 07/16/24 10:25 07/16/24 10:25 07/16/24 10:25 07/16/24 10:25 07/16/24 10:25 Narrative Exam GENERAL APPEARANCE: Patient seems to be comfortable, adequately hydrated and nourished. HEENT: EOMI, PERRLA NECK: Neck supple, no JVD or bruit CARDIOVASCULAR: Heart regular, no murmurs LUNGS/CHEST: Chest clear to auscultation. No rales, rhonchi, wheezing ABDOMEN: Soft, nontender, nondistended. No masses. Normal bowel sounds. EXTREMITIES: No edema, clubbing or cyanosis. SKIN: Skin exam normal without any rashes MUSCULOSKELETAL: Right hand swollen NEUROLOGICAL : No neurological deficits, alert and awake Results Labs 07/17/24 05:09 07/17/24 05:09 Labs: Short CBC 07/15/24 07/16/24 Range/Units 15:02 04:40 WBC 8.7 8.8 (3.6-11.0) Thou/mm3 Hgb 9.5 L 8.3 L (12.0-16.0) g/dL Hct 28.6 L 25.1 L (36.0-46.0) % Plt Count 290 240 D (140-440) Thou/mm3 BMP 07/15/24 07/15/24 07/16/24 15:02 22:16 02:25 Sodium 116 L* 123 L 122 L Potassium 3.5 3.2 L Chloride 81 L 88 L Carbon Dioxide 24.7 22.8 BUN 20 21 Creatinine 1.7 H 1.7 H Glucose 380 H 332 H Calcium 9.5 9.2 07/16/24 07/16/24 07/16/24 04:40 04:40 09:59 Sodium 124 L Cancelled 128 L Potassium 3.5 Chloride 90 L Carbon Dioxide 23.5 BUN 21 Creatinine 1.5 H Glucose 295 H Calcium 9.1 Cardiac Enzymes 07/15/24 Range/Units 15:02 Troponin I < 0.020 (0.0-0.045) ng/mL Liver Function 07/15/24 07/15/24 07/16/24 Range/Units 15:02 22:16 04:40 Total Bilirubin 0.8 0.7 0.6 (0.3-1.2) mg/dL AST 17 25 27 (0-34) U/L ALT 17 13 14 (10-49) U/L Alkaline Phosphatase 92 85 81 (46-116) U/L Albumin 5.1 H 4.4 D 4.4 (3.4-4.8) gm/dL ABG Interpretation ABG results: 07/15/24 22:58 ABG pH 7.40 ABG pCO2 39 ABG pO2 64 L ABG HCO3 24 ABG O2 Saturation 93 ABG Base Excess -1 Assessment & Plan Assessment and plan (1) Hyponatremia: Status: Acute Assessment and plan: Hyponatremia secondary to hypovolemic state from nausea, vomiting, loose stools and decreased p.o. intake. Sodium rapidly corrected. Will switch IV fluids to D5W to avoid overcorrection. CT brain negative. Will monitor sodium closely. Patient downgraded from ICU (2) TRISTAN (acute kidney injury): Status: Acute Assessment and plan: TRISTAN secondary to prerenal azotemia. Creatinine started to improve. (3) Hyperglycemia: Status: Acute Assessment and plan: Patient came with a glucose 380. On sliding scale and consistent carb low (4) Hand fracture, right: Status: Acute Assessment and plan: Status post fall with hand fracture. Mathew wrap. (5) Vomiting: Status: Acute Assessment and plan: Question related to gastroenteritis. On Zofran. Additional Assessment & Plan Additional Plan: Thank you Dr. Monroe for allowing me to participate in the care of Ms. Hung
[2024-07-16] MEDS: BusPIRone HCL 5 MG TABLET 10 MG PO (11:48)
[2024-07-16] MEDS: cefTRIAXone 2 GM in SODIUM CHLORIDE 0.9% (P) 50 ML IV (11:58)
--- NOTE | 2024-07-16 12:10 | PC.NURSE ---
WENT TO CHECK ON PT, ON HER LEADS AND CORDS WERE ON THE GROUND AND SHE WAS STATING THAT SHE WAS SEEING A MOUSE ON THE GROUND. PT KNOWS WHERE SHE IS AT, BUT IS SLIGHTLY CONFUSED.MOVED PT TO ROOM 7 TO BE CLOSER TO THE NURSING STATION. PLACED IN [facility]A [facility], BED RAILS UP. WILL CONT TO MONITOR.
[2024-07-16] MEDS: DEXTROSE 5%-WATER 1,000 ML 65 ML IV (13:40)
--- NOTE | 2024-07-16 15:48 | PC.NURSE ---
pt got up out of bed and ripped IV out again, pulled all her lines, placed a sitter on pt for safety
--- NOTE | 2024-07-16 15:48 | PD.RESPRO ---
Documentation for date of: 07/16/24 Subjective Subjective Interval history: Patient was seen and examined at the bedside in ICU. Patient reports no new complaints and lower abdominal pain has resolved. Patient does not have any nausea having been vomiting since night. She is alert and oriented x 3. Her sodium has increased to 138, hypertonic saline was stopped and patient was started on D5W at 65 cc/h. Nephrology is following. At this moment patient is stable and asymptomatic and will be downgraded to medical floor for continuation of management. Exam Vital Signs Temp Pulse Resp BP Pulse Ox O2 Del Method 98.1 F 89 19 160/83 H 99 Room Air 07/16/24 15:33 07/16/24 15:33 07/16/24 15:33 07/16/24 15:33 07/16/24 15:33 07/16/24 15:33 Narrative Exam Gen: Well-developed and well-nourished. HEENT: NCAT, PERRLA, EOMI, MMM, anicteric conjunctivae, poor dentition. CVS: normal S1 and S2. RRR. No M/R/G. Resp: CTA B/L. No rhonchi, rales, crackles or wheezing. Abd: soft, non-tender, non-distended. BS+ in all 4 quadrants. MSK: Good ROM in BUE & BLE. No edema or rash. Right hand is in immobilizer with multiple bruises. Neuro: CN II-XII grossly intact. Strength 5/5 in BUE & BLE. Alert and oriented x3. Psych: appropriate mood and affect. Objective Labs 07/23/24 05:10 07/23/24 05:10 Labs: Laboratory Results - last 24 hr 07/15/24 07/15/24 07/15/24 15:02 18:46 18:48 WBC RBC Hgb Hct MCV MCH MCHC RDW Std Deviation Plt Count Neut % (Auto) Lymph % (Auto) [place] % (Auto) Eos % (Auto) Baso % (Auto) Neut # (Auto) Lymph # (Auto) [place] # (Auto) Eos # (Auto) Baso # (Auto) Immature Gran # (Auto) Absolute Nucleated RBC Immature Gran % Nucleated RBC % PT INR Puncture Site ABG pH ABG pCO2 ABG pO2 ABG HCO3 ABG O2 Saturation ABG Base Excess FiO2 Sodium Potassium Chloride Carbon Dioxide Anion Gap BUN Creatinine Estim Creat Clear Calc eGFR BUN/Creatinine Ratio Glucose Estimated Ave Glu mg/dL Hemoglobin A1c Calculated Osmolality Calcium Corrected Calcium Phosphorus Magnesium 1.6 Total Bilirubin AST ALT Alkaline Phosphatase Total Protein Albumin Globulin Albumin/Globulin Ratio Amylase 48 Beta-Hydroxybutyrate/Acetoacetate Influenza A (Rapid) Negative Influenza B (Rapid) Negative RSV Rapid Negative 07/15/24 07/15/24 07/16/24 22:16 22:58 02:25 WBC RBC Hgb Hct MCV MCH MCHC RDW Std Deviation Plt Count Neut % (Auto) Lymph % (Auto) [place] % (Auto) Eos % (Auto) Baso % (Auto) Neut # (Auto) Lymph # (Auto) [place] # (Auto) Eos # (Auto) Baso # (Auto) Immature Gran # (Auto) Absolute Nucleated RBC Immature Gran % Nucleated RBC % PT INR Puncture Site Right Brachial ABG pH 7.40 ABG pCO2 39 ABG pO2 64 L ABG HCO3 24 ABG O2 Saturation 93 ABG Base Excess -1 FiO2 21 Sodium 123 L 122 L Potassium 3.2 L Chloride 88 L Carbon Dioxide 22.8 Anion Gap 12 BUN 21 Creatinine 1.7 H Estim Creat Clear Calc 32.1 L eGFR 34 L BUN/Creatinine Ratio [address] Glu mg/dL Hemoglobin A1c Calculated Osmolality 263 L Calcium 9.2 Corrected Calcium 9.2 Phosphorus Magnesium Total Bilirubin 0.7 AST 25 ALT 13 Alkaline Phosphatase 85 Total Protein 7.1 Albumin 4.4 D Globulin 2.7 Albumin/Globulin Ratio 1.6 Amylase Beta-Hydroxybutyrate/Acetoacetate 0.1 Influenza A (Rapid) Influenza B (Rapid) RSV Rapid 07/16/24 07/16/24 07/16/24 04:40 04:40 09:59 WBC 8.8 RBC 3.57 L Hgb 8.3 L Hct 25.1 L MCV 70 L MCH 23.2 L MCHC 33.1 RDW Std Deviation 37.9 Plt Count 240 D Neut % (Auto) 77 Lymph % (Auto) 13 [place] % (Auto) 9 Eos % (Auto) 1 Baso % (Auto) 0 Neut # (Auto) 6.7 Lymph # (Auto) 1.1 [place] # (Auto) 0.8 Eos # (Auto) 0.1 Baso # (Auto) 0.0 Immature Gran # (Auto) 0.03 H Absolute Nucleated RBC 0.00 Immature Gran % 0 Nucleated RBC % 0 PT 10.4 INR 0.9 Puncture Site ABG pH ABG pCO2 ABG pO2 ABG HCO3 ABG O2 Saturation ABG Base Excess FiO2 Sodium 124 L Cancelled 128 L Potassium 3.5 Chloride 90 L Carbon Dioxide 23.5 Anion Gap 11 BUN 21 Creatinine 1.5 H Estim Creat Clear Calc 36.4 L eGFR 39 L BUN/Creatinine Ratio [address] Glu mg/dL 235 H Hemoglobin A1c 9.8 H Calculated Osmolality 263 L Calcium 9.1 Corrected Calcium 9.1 Phosphorus 3.8 Magnesium 2.2 Total Bilirubin 0.6 AST 27 ALT 14 Alkaline Phosphatase 81 Total Protein 6.8 Albumin 4.4 Globulin 2.4 Albumin/Globulin Ratio 1.8 Amylase Beta-Hydroxybutyrate/Acetoacetate Influenza A (Rapid) Influenza B (Rapid) RSV Rapid ABG Interpretation ABG results: 07/15/24 22:58 ABG pH 7.40 ABG pCO2 39 ABG pO2 64 L ABG HCO3 24 ABG O2 Saturation 93 ABG Base Excess -1 Quality Measures Quality Measures none Assessment & Plan Assessment Current Active Medications: Generic Name Dose Route Start Last Admin Trade Name Freq PRN Reason Stop Dose Admin Acetaminophen 650 mg 07/15/24 21:42 Acetaminophen 325 Mg Tablet PO 08/14/24 21:41 Q4HR PRN Pain Scale 1-3 fever 100.4 Hydrocodone Bitart/Acetaminophen 1 tab 07/16/24 09:22 Hydrocodone/Apap 5/325 Tablet PO 07/20/24 22:07 Q6HR PRN PAIN SCALE 4-6 (Moderate Buspirone HCl 10 mg 07/16/24 09:30 07/16/24 11:48 Buspirone Hcl 5 Mg Tablet PO 08/15/24 09:29 10 mg QDAY ABRAN Administration Dextrose 25 ml 07/15/24 23:48 Dextrose 50%-Water Inj 50 Ml Syringe IV 08/14/24 23:47 Q15MIN PRN BG 50-70 responsive npo pt Dextrose 50 ml 07/15/24 23:48 Dextrose 50%-Water Inj 50 Ml Syringe IV 08/14/24 23:47 Q15MIN PRN BG <50 OR BG <70 & pt unresponsive Glucagon 1 mg 07/15/24 23:48 Glucagon Inj 1 Mg Vial IM Q15MIN PRN BG <70, and no IV access Heparin Sodium (Porcine) 5,000 unit 07/15/24 22:00 07/16/24 05:56 Heparin Sod Inj 5000 Unit/Ml Vial SC 07/29/24 21:59 5,000 unit Q8HR ABRAN Administration Hydralazine HCl 10 mg 07/16/24 04:46 Hydralazine Inj 20 Mg/Ml Vial IV 08/15/24 04:45 Q6HR PRN SBP > 170 Ceftriaxone Sodium 2 gm/ 50 mls @ 100 mls/hr 07/16/24 09:30 07/16/24 12:59 Sodium Chloride IV 07/23/24 09:29 Infused QDAY ABRAN Infusion Dextrose 1,000 mls @ 65 mls/hr 07/16/24 12:45 07/16/24 13:40 D5w IV 08/15/24 12:44 65 mls/hr .[id number] ABRAN Administration Insulin Human Lispro 0 unit 07/16/24 07:30 07/16/24 11:58 Insulin Lispro (Admelog) 1 Unit/0.01 Ml Unit SC 08/15/24 07:29 4 unit ACHS ABRAN Administration Protocol Levothyroxine Sodium 125 mcg 07/16/24 06:00 07/16/24 05:56 Levothyroxine Sodium 25 Mcg Tablet PO 08/15/24 05:59 125 mcg ACBR ABRAN Administration Morphine Sulfate 1 mg 07/16/24 04:47 Morphine Sulf Inj 10 Mg/Ml Vial IVP 07/21/24 04:46 Q4HR PRN PAIN SCALE 7-10 (Severe Ondansetron HCl 4 mg 07/15/24 21:56 Ondansetron Inj 2 Mg/Ml Inj 2 Ml IV 08/14/24 21:55 Q6HR PRN NAUSEA OR VOMITING Pantoprazole Sodium 40 mg 07/16/24 09:00 07/16/24 08:01 Pantoprazole Inj 40 Mg Vial IVP 08/15/24 08:59 40 mg QDAY ABRAN Administration Trazodone HCl 200 mg 07/16/24 21:00 Trazodone Hcl 50 Mg Tablet PO 08/15/24 20:59 HS ABRAN Plan 63-year-old woman with past medical history of diabetes mellitus type 2, hyperlipidemia, hypothyroidism and colon cancer s/p resection came to the ED due to chief complaint of vomiting, poor oral intake and generalized weakness for 1 week associated to mild abdominal pain and nonproductive cough. she also stated that she was feeling dizzy and sustained a fall injuring her right hand twice she denied LOC. patient denied chest pain, dysuria, melena, hematemesis or any other associated symptoms different than the mentioned above. ED course: Initial vitals: Blood pressure 135/83 HR 93 RR 18 afebrile SpO2 98% on room air Pertinent labs: Hgb 9.5 HCT 28.6, ABGs unremarkable 116, creatinine 1.7, glucose 208, osmolality 263, beta-hydroxybutyrate negative, influenza, COVID and RSV negative Imaging: Chest x-ray was negative for acute disease, hand x-ray showed Acute fractures proximal phalanx fourth digit, CT head was negative, CT abdomen pelvis showed Perinephric stranding with mild to moderate bilateral renal parenchymal scar, formation, no hydronephrosis or ureteral calculi, EKG sinus rhythm no acute ST changes or T wave inversions per my interpretation. At the ED the patient received:1 L bolus NS, The patient will be admitted for further treatment and management of acute symptomatic hypoosmolar hyponatremia and pyelonephritis. 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 Possibly secondary to dehydration and symptomatic hyponatremia. CT head was negative. Plan: ? Follow-up Na+ every 4 hours. CVS: no active problem. PULM: no active problem. GI: #Intractable nausea and vomiting, resolved. Possibly secondary to pyelonephritis vs diabetic gastroparesis vs colon cancer. Patient stated that has been presenting nausea and vomiting as well as poor p.o. intake for 1 week. Plan: ? IV ondansetron as needed for nausea and vomiting. #Hx of colon cancer s/p bowel resection. Patient does not get any treatment currently. RENAL: #Hypoosmolar hyponatremia, improved. Most likely secondary to dehydration and hyperglycemia. Na+ 116 glucose 380 corrected sodium for hyperglycemia 121. Nephrology was consulted we greatly appreciate recommendations. Sodium corrected to 128, started on D5W. Plan: ? IV fluids D5W 65 cc/h. ? Follow-up Na+ every 4 hours ? Avoid overcorrection of Na+ 4 to 6 mEq in 24 hours ? Follow-up CMP #TRISTAN, improved. Most likely prerenal in the setting of severe dehydration and poor oral intake Creatinine 1.7 (baseline creatinine 1.0) improved to 1.5. Plan: - IV fluids. - Strict ins and outs. - Avoid nephrotoxic drugs. - Renally dose medications. - Follow-up CMP. #Electrolyte imbalance. ? Follow-up electrolytes and replete as necessary. ENDO: #Diabetes mellitus type 2. On metformin 500 mg BID at home, remote history of insulin treatment. HgbA1C 9.8%. Plan: ? Hold home medications. ? Accu-Cheks. ? Sliding scale insulin. ? Hypoglycemia protocol in place. #Hyperglycemia. Glucose 380 on admission. Plan: ? Sliding scale insulin. ? Continue to monitor closely. #Hx of hypothyroidism. Pending TSH. Plan: ? continue levothyroxine 125 mcg daily. HEME/ONC: #Acute on chronic anemia. Possibly secondary to CKD vs anemia of chronic diseases. Plan: ? Follow-up CBC. ? Transfuse if hemoglobin less than 7. ID: #?Pyelonephritis. No leukocytosis. UA no WBCs, RBCs 4, negative for bacteria otherwise. CT abdomen pelvis showed Perinephric stranding with mild to moderate bilateral renal parenchymal scar, formation, no hydronephrosis or ureteral calculi. Plan: ? IV Rocephin 2 g daily. ? Follow-up urine cultures. ? Follow-up CBC and CMP. MSK: #Right hand injury. #Acute fracture of proximal phalanx of fourth digit. Secondary to fall, hand x-ray showed Acute fractures proximal phalanx fourth digit. Immobilizer was placed. Plan: ? [place] every 6 hours as needed for pain. ? IV morphine 1 mg every 4 hours. ? Consider orthopedic surgery consult for further recommendations. SKIN: #Intertrigo. Patient reports rash between her breast which is very itchy, consistent with hilton infection. Plan: ? nystatin powder BID. FEN: Carbohydrate consistent diet. Lines: Peripheral lines. DVT prophylaxis: Heparin. GI prophylaxis: Protonix. CODE STATUS: DNR/DNI. Patient discussed with my attending Dr Mueller. Manish Kendall MD PGY-2. Disclaimer: Despite multiple revisions, due to the dictation software being used, the document bellow may not be free of grammatical errors including phonetic/typographic errors. However, this does not deter from our commitment to providing health care in the patient's best interest in mind. Attending Provider Attestation/Addendum Patient seen and examined with above resident, Manish Kendall MD. I agree with the findings, assessment, and plan of care as documented except for any differences below. Patient admitted with hyperosmolar hyponatremia in the setting of pyelonephritis and significant GI losses and inadequate intake. Notably patient had rapid correction of sodium and D5W instituted by nephrology will continue to follow the patient. Patient remains in safe range for avoidance of any neurologic deficits and will be transferred to medicine levi for ongoing management. Patient started on nystatin powder for intertrigo and remains on empiric high-dose Rocephin for pyelonephritis awaiting cultures. Patient with acute fracture of the right hand and will continue with pain control as SIADH may be involved from this. Orthopedic surgery will evaluate and immobilizer was placed already by the emergency department. Patient will continue to be serial monitoring of her sodium level to ensure that correction remained stable range but will ultimately defer any changes to nephrology given their expertise. Total critical care time: I personally spent 30 minutes for review of physiologic parameters, directing plan of care throughout the day, coordination of care with other subspecialties, and counseling patient at bedside. This is exclusive of time spent teaching housestaff or performing any separate billable procedures. Patient will require critical care services for hypoosmolar hyponatremia with severe sepsis. Patient remains at risk for higher morbidity and mortality warranting close monitoring and care only available in the ICU.
--- NOTE | 2024-07-16 17:00 | PC.NURSE ---
CALLED DR ODELL FOR UPDATE - PT BECAME TACHYCARDIC AND HYPERTENSIVE, ALTERED AND REFUSING TO LET ME PUT AN IV IN. HE STATES HE WILL SEND A RESIDENT DOWN.
[2024-07-16 17:19] LABS: Sodium 126 mMol/L (136-145)
--- NOTE | 2024-07-16 17:31 | PC.NURSE ---
amarilys braga called, pt is wanting to leave but sh eis altered and hallucinating. called sister to come help orient her. pt needing restrained at this time. Dr way ordered for restraints.
--- NOTE | 2024-07-16 17:49 | PC.CC ---
Pt Ella Hung is a 63 yr old female admitted to hospitalist services for dizziness, intractable nausea and vomiting, hypoosmolar hyponatemia, TRISTAN, electrolyte imbalance, hyperglycemia. 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 At time of encounter pt is noted to be alert and oriented to person, place and situation. Pt expressed understanding admission order. Pt able to confirm demographic information. Pt is from home [address] [facility] Per pt her sister Felicita Hung [phone] is staying with her to help pt in the home. Pt identifies her sister as surrogate DM. Pt reports being on disability. At baseline pt reports using a 4-wheel rollator to support ambulation. Pt reports her walker is almost non-functional as the wheels do not spin. Pt reports she would like to be independent with her ADLS but states she does need assist to complete. Pt does not require supplemental O2 at home. Pt is diabetic on oral medication for management. Pt is not on dialysis. Pt is followed by [facility] for primary care. At time of D/c pt reports she will D/c home with family providing transport. Pt is a DNR code status.
[2024-07-16 17:52] LABS: Anion Gap 12 (7-16); BUN/Creatinine Ratio 13 Ratio (12-20); Blood Urea Nitrogen 20 mg/dL (9-23); Calcium 9.2 mg/dL (8.3-10.6); Carbon Dioxide 21.5 mMol/L (20.0-31.0); Chloride 93 mMol/L (98-107); Creatinine (Component) 1.5 mg/dL (0.6-1.3); Estimated Creatinine Clearance 36.4 mL/min (>60); Glucose 287 mg/dL (74-106); Osmolality,Calculated 265 (275-295); Potassium 3.4 mMol/L (3.4-5.1); Sodium 126 mMol/L (136-145); Thyroid Stimulating Hormone 0.09 uIU/mL (0.55-4.78); eGFR 39 See Note
--- NOTE | 2024-07-16 18:50 | XR_ITS ---
Examination: CT brain head without contrast. 2-D sagittal coronal reconstructions Date and time of exam:July 16, 2024 1124 hrs. Indications: Altered mental status with acute hyponatremia today CTDI: vol (mGy):47 DLP: (mGycm):909 Technique: Multiple CT axial sections of the brain have been obtained, 5 mm slice thickness. Contrast has not been administered. 2-D sagittal, coronal reconstructions have been obtained Low dose protocols were performed. One or more of the following dose reduction techniques were used; automated exposure control, adjustment of the mA and/or KV according to patient size, use of iterative reconstruction technique. Findings: No significant ventricular enlargement. Intra-axial or extra-axial hemorrhage density is not seen. No mass effect or midline shift Basal cisterns are not remarkable. Fourth ventricle is midline. Cranial vault intact. Impression: Negative for acute hemorrhage, mass effect or midline shift
[2024-07-16] MEDS: LORazepam 2 MG/ML VIAL IVP (20:32)
[2024-07-16] MEDS: HALOPERIDOL LACT INJ 5 MG/ML VIAL IM ×2 (20:33→20:34)
[2024-07-16] MEDS: DiphenhydrAMINE INJ 50 MG/ML VIAL IV (21:31)
[2024-07-16 22:09] LABS: Sodium 129 mMol/L (136-145)
--- NOTE | 2024-07-16 23:23 | PC.NURSE ---
to ct scan per bed with bilateral wrist restraints accompanied by agricultural equipment sales manager and rn, pt sleepy.
[2024-07-16] MEDS: DEXTROSE 5%-WATER 1,000 ML 40 ML IV (23:49)
[2024-07-17] VITALS (13 sets, daily range): BP systolic 126–159; BP diastolic 71–91; PULSE 79–100; RESP 14–18; TEMP 36.4–36.9; O2SAT 92–98; BMI 22.7
[2024-07-17 02:27] LABS: Sodium 131 mMol/L (136-145)
--- NOTE | 2024-07-17 02:51 | PC.NURSE ---
Dr. Rivers called rn- Increased iv fluid rate to 65ml/hr per md order.
--- NOTE | 2024-07-17 02:51 | PC.NURSE ---
Dr. Butler called rn- Increased iv fluid rate to 65ml/hr per md order.
[2024-07-17 04:08] LABS: Collection Type, Urine Voided
[2024-07-17 04:18] LABS: Bilirubin,Urine Negative (Negative); Blood,Urine Trace (Negative); Clarity,Urine Clear (Clear/Hazy); Color,Urine Lt-Yellow (Lt Yel-Yel); Culture Indicated,Urine Not Indicated; Glucose, Urine 4+ (Negative); Ketones,Urine Negative (Negative); Leukocyte Esterase,Urine Negative (Negative); Nitrite,Urine Negative (Negative); PH,Urine 5.5 (5.0-7.0); Protein,Urine 1+ (Neg - Trace); RBC,Urine 1 /hpf (0-3); Specific Gravity,Urine 1.012 (1.001-1.035); Squamous Epithelial Cell,Urine < 1 /hpf (0-5); Urobilinogen,Urine Negative mg/dL (0.0-1.0); WBC,Urine 4 /hpf (0-5)
[2024-07-17 04:25] LABS: Amphetamine/Methamp Scrn,U Negative (Negative); Barbiturate Screen,Urine Negative (Negative); Benzodiazepines Screen,Urine Negative (Negative); Benzoylecgonine Screen, Ur Negative (Negative); Fentanyl Screen,Urine Negative (Negative); Opiate Screen,Urine Positive (Negative); THC Screen,Urine Negative (Negative)
[2024-07-17] MEDS: LEVOTHYROXINE SODIUM 25 MCG TABLET 125 MCG PO (05:44)
[2024-07-17] MEDS: HEPARIN SOD INJ 5000 UNIT/ML VIAL SC ×3 (05:48→21:16)
[2024-07-17 06:14] LABS: Basophils % (Auto) 0 % (0-2.5); Eosinophils # (Auto) 0.1 Thou/mm3 (0.0-0.5); Eosinophils % (Auto) 2 % (0-10); Hematocrit 24.4 % (36.0-46.0); Immature Granulocytes % (Auto) 0 % (0-0); Immature Granulocytes Auto 0.03 Thou/mm3 (0.00-0.00); Lymphocytes % (Auto) 28 % (10-50); Mean Corpuscular HGB Conc 32.8 g/dl (31.0-37.0); Mean Corpuscular Hemoglobin 23.3 pg (25.0-35.0); Mean Corpuscular Volume 71 fL (80-100); Monocytes # (Auto) 0.7 Thou/mm3 (0.0-0.8); Monocytes % (Auto) 10 % (0-12); Neutrophils # (Auto) 4.2 Thou/mm3 (1.8-7.7); Neutrophils % (Auto) 59 % (37-80); Nucleated Red Blood Cell % 0 /100 WBC (0); Platelet Count 268 Thou/mm3 (140-440); RDW Standard Deviation 39.8 fL (36.4-46.3); Red Blood Count 3.43 Miln/mm3 (4.00-5.20); White Blood Count 7.2 Thou/mm3 (3.6-11.0)
[2024-07-17 06:36] LABS: Alanine Aminotransferase 17 U/L (10-49); Albumin, Serum 4.3 gm/dL (3.4-4.8); Albumin/Globulin Ratio 1.9 (1.2-2.2); Alkaline Phosphatase 75 U/L (46-116); Anion Gap 8 (7-16); Aspartate Amino Transferase 35 U/L (0-34); BUN/Creatinine Ratio 15 Ratio (12-20); Bilirubin,Total 0.4 mg/dL (0.3-1.2); Blood Urea Nitrogen 20 mg/dL (9-23); Calcium 9.3 mg/dL (8.3-10.6); Calcium (Corrected) 9.3 mg/dL (8.5-10.1); Carbon Dioxide 25.1 mMol/L (20.0-31.0); Chloride 96 mMol/L (98-107); Creatinine (Component) 1.3 mg/dL (0.6-1.3); Free T4 (Free Thyroxine) 1.32 ng/dL (0.89-1.76); Globulin 2.3 gm/dL (2.3-3.5); Glucose 271 mg/dL (74-106); Osmolality,Calculated 271 (275-295); Potassium 3.6 mMol/L (3.4-5.1); Sodium 129 mMol/L (136-145); Total Protein 6.6 gm/dL (5.7-8.2); eGFR 46 See Note
--- NOTE | 2024-07-17 08:02 | PD.NEPHPROG ---
Documentation for date of: 07/17/24 Subjective Subjective Interval history: Ms. contreras is a 63-year-old woman with past medical history of diabetes mellitus type 2, hyperlipidemia, hypothyroidism, anxiety, neuropathy and colon cancer s/p resection came to the ED due to chief complaint of vomiting, loose stools, poor oral intake and generalized weakness for 1 week associated to mild abdominal pain and nonproductive cough. she also stated that she was feeling dizzy and sustained a fall injuring her right hand twice. she denied LOC. patient denied chest pain, dysuria, melena, hematemesis. Home medications included albuterol Augmentin BuSpar vitamin D, gabapentin, Cope, hydroxyzine, Janumet, levothyroxine, meloxicam, naproxen, prednisone, simvastatin, salt tabs, tizanidine, trazodone Of note patient was noted to have on and off episodes of hyponatremia needing salt tablets. In the emergency department sodium 119, Hgb 9.5 HCT 28.6, ABGs unremarkable 116, creatinine 1.7, glucose 380, osmolality 263, beta-hydroxybutyrate negative, influenza, COVID and RSV negative Imaging: Chest x-ray was negative for acute disease, hand x-ray showed Acute fractures proximal phalanx fourth digit, CT head was negative, CT abdomen pelvis showed Perinephric stranding with mild to moderate bilateral renal parenchymal scar, formation, no hydronephrosis or ureteral calculi, EKG sinus rhythm no acute ST changes or T wave inversions per my interpretation Normal saline was started and patient admitted for symptomatic hyponatremia. Renal consultation requested for hyponatremia. Patient currently seen in the emergency department. She seems to be more alert and awake although nurse stated that on and off she is having episodes of agitation. When I saw her she is completely alert and awake. However her sodium tessie from 119-126 and I started her on D5W to avoid overcorrection 07/17/2024 patient currently seen in medical floor. She is more alert and awake. Sodium 127. Will discontinue D5W. If serum sodium greater than 128 tomorrow can be discharged. Spoke to primary team. Review of Systems Review of Systems Narrative Review of Systems: Patient more alert and awake. Denies any chest pain, shortness of breath. Denies any nausea, vomiting Exam Vital Signs Temp Pulse Resp BP Pulse Ox O2 Del Method 36.9 C 89 14 159/90 H 98 Room Air 07/17/24 07:53 07/17/24 07:53 07/17/24 07:53 07/17/24 07:53 07/17/24 07:53 07/17/24 07:53 Narrative Exam GENERAL APPEARANCE: Patient seems to be comfortable, adequately hydrated and nourished. HEENT: EOMI, PERRLA NECK: Neck supple, no JVD or bruit CARDIOVASCULAR: Heart regular, no murmurs LUNGS/CHEST: Chest clear to auscultation. No rales, rhonchi, wheezing ABDOMEN: Soft, nontender, nondistended. No masses. Normal bowel sounds. EXTREMITIES: No edema, clubbing or cyanosis. SKIN: Skin exam normal without any rashes MUSCULOSKELETAL: Right hand swollen NEUROLOGICAL : No neurological deficits, alert and awake Objective Labs 07/18/24 05:08 07/18/24 05:08 Labs: Laboratory Results - last 24 hr 07/16/24 07/16/24 07/16/24 04:40 09:59 17:04 WBC RBC Hgb Hct MCV MCH MCHC RDW Std Deviation Plt Count Neut % (Auto) Lymph % (Auto) [place] % (Auto) Eos % (Auto) Baso % (Auto) Neut # (Auto) Lymph # (Auto) [place] # (Auto) Eos # (Auto) Baso # (Auto) Immature Gran # (Auto) Absolute Nucleated RBC Immature Gran % Nucleated RBC % Sodium 128 L 126 L Potassium Chloride Carbon Dioxide Anion Gap BUN Creatinine Estim Creat Clear Calc eGFR BUN/Creatinine Ratio Glucose Estimated Ave Glu mg/dL 235 H Hemoglobin A1c 9.8 H Calculated Osmolality Calcium Corrected Calcium Total Bilirubin AST ALT Alkaline Phosphatase Total Protein Albumin Globulin Albumin/Globulin Ratio TSH Free T4 Ur Collection Type Urine Color Urine Clarity Urine pH Ur Specific [place] Urine Protein Urine Glucose (UA) Urine Ketones Urine Blood Urine Nitrite Urine Bilirubin Urine Urobilinogen (Auto) Ur Leukocyte Esterase Urine RBC Urine WBC Ur Squamous Epith Cells Urine Bacteria Ur Culture Indicated? Urine Opiates Screen Urine Fentanyl Screen Ur Barbiturates Screen U Amphetamin/Meth Scrn U Benzodiazepines Scrn U Cocaine Metab Screen U Marijuana (THC) Screen 07/16/24 07/16/24 07/17/24 17:04 21:39 01:21 WBC RBC Hgb Hct MCV MCH MCHC RDW Std Deviation Plt Count Neut % (Auto) Lymph % (Auto) [place] % (Auto) Eos % (Auto) Baso % (Auto) Neut # (Auto) Lymph # (Auto) [place] # (Auto) Eos # (Auto) Baso # (Auto) Immature Gran # (Auto) Absolute Nucleated RBC Immature Gran % Nucleated RBC % Sodium 126 L 129 L 131 L Potassium 3.4 Chloride 93 L Carbon Dioxide 21.5 Anion Gap 12 BUN 20 Creatinine 1.5 H Estim Creat Clear Calc 36.4 L eGFR 39 L BUN/Creatinine Ratio [address] Glu mg/dL Hemoglobin A1c Calculated Osmolality 265 L Calcium 9.2 Corrected Calcium Total Bilirubin AST ALT Alkaline Phosphatase Total Protein Albumin Globulin Albumin/Globulin Ratio TSH 0.09 L* Free T4 Ur Collection Type Urine Color Urine Clarity Urine pH Ur Specific [place] Urine Protein Urine Glucose (UA) Urine Ketones Urine Blood Urine Nitrite Urine Bilirubin Urine Urobilinogen (Auto) Ur Leukocyte Esterase Urine RBC Urine WBC Ur Squamous Epith Cells Urine Bacteria Ur Culture Indicated? Urine Opiates Screen Urine Fentanyl Screen Ur Barbiturates Screen U Amphetamin/Meth Scrn U Benzodiazepines Scrn U Cocaine Metab Screen U Marijuana (THC) Screen 07/17/24 07/17/24 03:46 05:09 WBC 7.2 RBC 3.43 L Hgb 8.0 L Hct 24.4 L MCV 71 L MCH 23.3 L MCHC 32.8 RDW Std Deviation 39.8 Plt Count 268 Neut % (Auto) 59 Lymph % (Auto) 28 [place] % (Auto) 10 Eos % (Auto) 2 Baso % (Auto) 0 Neut # (Auto) 4.2 Lymph # (Auto) 2.0 [place] # (Auto) 0.7 Eos # (Auto) 0.1 Baso # (Auto) 0.0 Immature Gran # (Auto) 0.03 H Absolute Nucleated RBC 0.00 Immature Gran % 0 Nucleated RBC % 0 Sodium 129 L Potassium 3.6 Chloride 96 L Carbon Dioxide 25.1 Anion Gap 8 BUN 20 Creatinine 1.3 Estim Creat Clear Calc 42.0 L eGFR 46 L BUN/Creatinine Ratio 15 [address]ucose [address] Glu mg/dL Hemoglobin A1c Calculated Osmolality 271 L Calcium 9.3 Corrected Calcium 9.3 Total Bilirubin 0.4 AST 35 H ALT 17 Alkaline Phosphatase 75 Total Protein 6.6 Albumin 4.3 Globulin 2.3 Albumin/Globulin Ratio 1.9 TSH Free T4 1.32 Ur Collection Type Voided Urine Color Lt-Yellow Urine Clarity Clear Urine pH 5.5 Ur Specific [place] 1.012 Urine Protein 1+ A Urine Glucose (UA) 4+ A Urine Ketones Negative Urine Blood Trace Urine Nitrite Negative Urine Bilirubin Negative Urine Urobilinogen (Auto) Negative Ur Leukocyte Esterase Negative Urine RBC 1 Urine WBC 4 Ur Squamous Epith Cells < 1 Urine Bacteria None Ur Culture Indicated? Not Indicated Urine Opiates Screen Positive A Urine Fentanyl Screen Negative Ur Barbiturates Screen Negative U Amphetamin/Meth Scrn Negative U Benzodiazepines Scrn Negative U Cocaine Metab Screen Negative U Marijuana (THC) Screen Negative ABG Interpretation ABG results: 07/15/24 22:58 ABG pH 7.40 ABG pCO2 39 ABG pO2 64 L ABG HCO3 24 ABG O2 Saturation 93 ABG Base Excess -1 Assessment & Plan Assessment and plan (1) Hyponatremia: Status: Acute Assessment and plan: Hyponatremia secondary to hypovolemic state from nausea, vomiting, loose stools and decreased p.o. intake. Sodium rapidly corrected. Will switch IV fluids to D5W to avoid overcorrection. CT brain negative. Will monitor sodium closely. Patient downgraded from ICU 07/17 today sodium seems to be better at 127. Will DC D5W and wait for auto correction. If sodium greater than 128 can be discharged tomorrow. Spoke to primary team. (2) TRISTAN (acute kidney injury): Status: Acute Assessment and plan: TRISTAN secondary to prerenal azotemia. Creatinine started to improve. 1.3. Will DC IV fluids. Patient alert and awake and is able to drink fluids. (3) Hyperglycemia: Status: Acute Assessment and plan: Patient came with a glucose 380. On sliding scale and consistent carb low (4) Hand fracture, right: Status: Acute Assessment and plan: Status post fall with hand fracture. Mathew wrap. (5) Vomiting: Status: Acute Assessment and plan: Question related to gastroenteritis. On Zofran. better
[2024-07-17] MEDS: INSULIN LISPRO (AdmeLOG) 1 UNIT/0.01 ML UNIT SC ×4 (08:10→21:16)
[2024-07-17] MEDS: cefTRIAXone 2 GM in SODIUM CHLORIDE 0.9% (P) 50 ML IV (09:22)
[2024-07-17] MEDS: PANTOPRAZOLE INJ 40 MG VIAL IVP (09:24)
[2024-07-17] MEDS: BusPIRone HCL 5 MG TABLET 10 MG PO (09:24)
[2024-07-17 10:34] LABS: Sodium 128 mMol/L (136-145)
[2024-07-17] MEDS: DEXTROSE 5%-WATER 1,000 ML 100 ML IV (12:54)
[2024-07-17] MEDS: NYSTATIN PWD 15 GM BTL TOP ×2 (13:22→21:16)
--- NOTE | 2024-07-17 13:40 | ESPR_ITS ---
<Statement entered by Riccardo Hagan MD - 07/17/24 17:30> 63-year-old female patient with past medical history of type 2 diabetes mellitus, hypothyroidism, hyperlipidemia, colon cancer s/p resection was admitted due to history of 3 days of nausea and vomiting before admission. Patient also had 2 episodes of fall in which she injured her right hand which caused fracture of her right fourth proximal phalanx the daughter reported that patient started to become weak and she was not able to take her home medications or tolerate oral feedings. On evaluation patient was noticed to have sodium level of 116, glucose level of 380 corrected sodium level is 121. Patient was downgraded from the ICU as the patient did not meet the ICU criteria for severe hyponatremia. At this time overnight the patient became combative in which she was given haloperidol x 2 5 mg and was given Benadryl IV 50 mg. Also was put on restraints. On assessment family reported that patient has never been combative or aggressive and she was able to take care of her self and her finances. For that reason we believe the patient has had an acute encephalopathy and we consulted the neurologist Dr Rivers for further recommendations. Regarding her sodium level patient was being corrected too rapidly from 1 16-1 31 in less than 48 hours for that reason patient was started on D5W which brought down her sodium to 127. The chainstitch hemmer Dr. Salomon was on board and she recommended to hold the D5W and DCD sodium checks for now. She recommended also to hold on resuming her sodium tablet until we reevaluate tomorrow morning. Regarding her TRISTAN her serum creatinine has been improving from 1.6-1.3 since admission, Regarding her pyelonephritis the patient is being treated with IV ceftriaxone and the patient is vital stable with no spikes of fever overnight and no dysuria or pain. Patient was found to have right fourth proximal phalanx fracture in which splint was placed and we consulted the orthopedic surgeon Dr Maurer for further recommendations. - Patient's plan and care discussed with my attending, Dr. Annamarie Hagan MD Internal Medicine PGY-2 Documentation for date of: 07/17/24 Subjective Subjective Interval history: Patient examined at bedside today. Overnight events included patient had COVID called on her for being combative with staff, was given Haldol, Ativan and Benadryl. When examined at bedside today she reports she is doing okay, does not want orthopedic consult at this time. Says her hand is okay. No other complaints at this time Exam Vital Signs Temp Pulse Resp BP Pulse Ox O2 Del Method 97.5 F 88 17 146/86 H 95 Room Air 07/17/24 11:33 07/17/24 11:33 07/17/24 11:33 07/17/24 11:33 07/17/24 11:33 07/17/24 11:33 Narrative Exam General: AAOx2, NAD, HEENT: Dry mucous membranes, poor dentition, conjunctiva clear, EOMI, PERRLA, Cardiovascular: S1, S2, radial pulses +2 bilat, RRR Pulmonary: CTAB bilat no cough, no wheezing GI: No tenderness to light or deep palpitation, no guarding, rigidity, rebound tenderness or distension Extremities: No presence of trace or pitting edema in lower extremities bilaterally, dorsalis pedis pulses +2 bilaterally Neuro: AAOx2 not alert to time/date, no focal motor or sensory deficits in the UE or LE bilat Psych: Good judgement, thought and behavior, able to cooperate Objective Labs 07/18/24 05:08 07/18/24 05:08 Labs: Laboratory Results - last 24 hr 07/16/24 07/16/24 07/16/24 17:04 17:04 21:39 WBC RBC Hgb Hct MCV MCH MCHC RDW Std Deviation Plt Count Neut % (Auto) Lymph % (Auto) [place] % (Auto) Eos % (Auto) Baso % (Auto) Neut # (Auto) Lymph # (Auto) [place] # (Auto) Eos # (Auto) Baso # (Auto) Immature Gran # (Auto) Absolute Nucleated RBC Immature Gran % Nucleated RBC % Sodium 126 L 126 L 129 L Potassium 3.4 Chloride 93 L Carbon Dioxide 21.5 Anion Gap 12 BUN 20 Creatinine 1.5 H Estim Creat Clear Calc 36.4 L eGFR 39 L BUN/Creatinine Ratio 13 Glucose 287 H Calculated Osmolality 265 L Calcium 9.2 Corrected Calcium Total Bilirubin AST ALT Alkaline Phosphatase Total Protein Albumin Globulin Albumin/Globulin Ratio TSH 0.09 L* Free T4 Ur Collection Type Urine Color Urine Clarity Urine pH Ur Specific [place] Urine Protein Urine Glucose (UA) Urine Ketones Urine Blood Urine Nitrite Urine Bilirubin Urine Urobilinogen (Auto) Ur Leukocyte Esterase Urine RBC Urine WBC Ur Squamous Epith Cells Urine Bacteria Ur Culture Indicated? Urine Opiates Screen Urine Fentanyl Screen Ur Barbiturates Screen U Amphetamin/Meth Scrn U Benzodiazepines Scrn U Cocaine Metab Screen U Marijuana (THC) Screen 07/17/24 07/17/24 07/17/24 01:21 03:46 05:09 WBC 7.2 RBC 3.43 L Hgb 8.0 L Hct 24.4 L MCV 71 L MCH 23.3 L MCHC 32.8 RDW Std Deviation 39.8 Plt Count 268 Neut % (Auto) 59 Lymph % (Auto) 28 [place] % (Auto) 10 Eos % (Auto) 2 Baso % (Auto) 0 Neut # (Auto) 4.2 Lymph # (Auto) 2.0 [place] # (Auto) 0.7 Eos # (Auto) 0.1 Baso # (Auto) 0.0 Immature Gran # (Auto) 0.03 H Absolute Nucleated RBC 0.00 Immature Gran % 0 Nucleated RBC % 0 Sodium 131 L 129 L Potassium 3.6 Chloride 96 L Carbon Dioxide 25.1 Anion Gap 8 BUN 20 Creatinine 1.3 Estim Creat Clear Calc 42.0 L eGFR 46 L BUN/Creatinine Ratio 15 Glucose 271 H Calculated Osmolality 271 L Calcium 9.3 Corrected Calcium 9.3 Total Bilirubin 0.4 AST 35 H ALT 17 Alkaline Phosphatase 75 Total Protein 6.6 Albumin 4.3 Globulin 2.3 Albumin/Globulin Ratio 1.9 TSH Free T4 1.32 Ur Collection Type Voided Urine Color Lt-Yellow Urine Clarity Clear Urine pH 5.5 Ur Specific [place] 1.012 Urine Protein 1+ A Urine Glucose (UA) 4+ A Urine Ketones Negative Urine Blood Trace Urine Nitrite Negative Urine Bilirubin Negative Urine Urobilinogen (Auto) Negative Ur Leukocyte Esterase Negative Urine RBC 1 Urine WBC 4 Ur Squamous Epith Cells < 1 Urine Bacteria None Ur Culture Indicated? Not Indicated Urine Opiates Screen Positive A Urine Fentanyl Screen Negative Ur Barbiturates Screen Negative U Amphetamin/Meth Scrn Negative U Benzodiazepines Scrn Negative U Cocaine Metab Screen Negative U Marijuana (THC) Screen Negative 07/17/24 09:43 WBC RBC Hgb Hct MCV MCH MCHC RDW Std Deviation Plt Count Neut % (Auto) Lymph % (Auto) [place] % (Auto) Eos % (Auto) Baso % (Auto) Neut # (Auto) Lymph # (Auto) [place] # (Auto) Eos # (Auto) Baso # (Auto) Immature Gran # (Auto) Absolute Nucleated RBC Immature Gran % Nucleated RBC % Sodium 128 L Potassium Chloride Carbon Dioxide Anion Gap BUN Creatinine Estim Creat Clear Calc eGFR BUN/Creatinine Ratio Glucose Calculated Osmolality Calcium Corrected Calcium Total Bilirubin AST ALT Alkaline Phosphatase Total Protein Albumin Globulin Albumin/Globulin Ratio TSH Free T4 Ur Collection Type Urine Color Urine Clarity Urine pH Ur Specific [place] Urine Protein Urine Glucose (UA) Urine Ketones Urine Blood Urine Nitrite Urine Bilirubin Urine Urobilinogen (Auto) Ur Leukocyte Esterase Urine RBC Urine WBC Ur Squamous Epith Cells Urine Bacteria Ur Culture Indicated? Urine Opiates Screen Urine Fentanyl Screen Ur Barbiturates Screen U Amphetamin/Meth Scrn U Benzodiazepines Scrn U Cocaine Metab Screen U Marijuana (THC) Screen ABG Interpretation ABG results: 07/15/24 22:58 ABG pH 7.40 ABG pCO2 39 ABG pO2 64 L ABG HCO3 24 ABG O2 Saturation 93 ABG Base Excess -1 Quality Measures Quality Measures none Assessment & Plan Assessment Current Active Medications: Generic Name Dose Route Start Last Admin Trade Name Freq PRN Reason Stop Dose Admin Acetaminophen 650 mg 07/15/24 21:42 Acetaminophen 325 Mg Tablet PO 08/14/24 21:41 Q4HR PRN Pain Scale 1-3 fever 100.4 Buspirone HCl 10 mg 07/16/24 09:30 07/17/24 09:24 Buspirone Hcl 5 Mg Tablet PO 08/15/24 09:29 10 mg QDAY ABRAN Administration Dextrose 25 ml 07/15/24 23:48 Dextrose 50%-Water Inj 50 Ml Syringe IV 08/14/24 23:47 Q15MIN PRN BG 50-70 responsive npo pt Dextrose 50 ml 07/15/24 23:48 Dextrose 50%-Water Inj 50 Ml Syringe IV 08/14/24 23:47 Q15MIN PRN BG <50 OR BG <70 & pt unresponsive Glucagon 1 mg 07/15/24 23:48 Glucagon Inj 1 Mg Vial IM Q15MIN PRN BG <70, and no IV access Heparin Sodium (Porcine) 5,000 unit 07/15/24 22:00 07/17/24 05:48 Heparin Sod Inj 5000 Unit/Ml Vial SC 07/29/24 21:59 5,000 unit Q8HR ABRAN Administration Hydralazine HCl 10 mg 07/16/24 04:46 Hydralazine Inj 20 Mg/Ml Vial IV 08/15/24 04:45 Q6HR PRN SBP > 170 Ceftriaxone Sodium 2 gm/ 50 mls @ 100 mls/hr 07/16/24 09:30 07/17/24 09:22 Sodium Chloride IV 07/23/24 09:29 100 mls/hr QDAY ABRAN Administration Dextrose 1,000 mls @ 100 mls/hr 07/17/24 07:04 07/17/24 12:54 D5w IV 07/17/24 17:01 100 mls/hr .Q10H ABRAN Administration Insulin Human Lispro 0 unit 07/16/24 07:30 07/17/24 12:11 Insulin Lispro (Admelog) 1 Unit/0.01 Ml Unit SC 08/15/24 07:29 3 unit ACHS ABRAN Administration Protocol Levothyroxine Sodium 125 mcg 07/16/24 06:00 07/17/24 05:44 Levothyroxine Sodium 25 Mcg Tablet PO 08/15/24 05:59 125 mcg ACBR ABRAN Administration Nystatin 0 gm 07/16/24 21:00 07/17/24 13:22 Nystatin Pwd 15 Gm Btl TOP 08/15/24 20:59 1 applicatio BID ABRAN Administration Ondansetron HCl 4 mg 07/15/24 21:56 Ondansetron Inj 2 Mg/Ml Inj 2 Ml IV 08/14/24 21:55 Q6HR PRN NAUSEA OR VOMITING Pantoprazole Sodium 40 mg 07/16/24 09:00 07/17/24 09:24 Pantoprazole Inj 40 Mg Vial IVP 08/15/24 08:59 40 mg QDAY ABRAN Administration Trazodone HCl 200 mg 07/16/24 21:00 07/16/24 22:56 Trazodone Hcl 50 Mg Tablet PO 08/15/24 20:59 Not Given HS ABRAN Plan Assessment 63-year-old woman with past medical history of diabetes mellitus type 2, hyperlipidemia, hypothyroidism and colon cancer s/p resection came to the ED due to chief complaint of vomiting, poor oral intake and generalized weakness for 1 week associated to mild abdominal pain and nonproductive cough. she also stated that she was feeling dizzy and sustained a fall injuring her right hand twice she denied LOC. patient denied chest pain, dysuria, melena, hematemesis or any other associated symptoms different than the mentioned above. ED course: Initial vitals: Blood pressure 135/83 HR 93 RR 18 afebrile SpO2 98% on room air Pertinent labs: Hgb 9.5 HCT 28.6, ABGs unremarkable 116, creatinine 1.7, glucose 208, osmolality 263, beta-hydroxybutyrate negative, influenza, COVID and RSV negative Imaging: Chest x-ray was negative for acute disease, hand x-ray showed Acute fractures proximal phalanx fourth digit, CT head was negative, CT abdomen pelvis showed Perinephric stranding with mild to moderate bilateral renal parenchymal scar, formation, no hydronephrosis or ureteral calculi, EKG sinus rhythm no acute ST changes or T wave inversions per my interpretation. At the ED the patient received:1 L bolus NS, The patient will be admitted for further treatment and management of acute symptomatic hypoosmolar hyponatremia and pyelonephritis. #? Acute encephalopathy #Hypoosmolar hyponatremia, improved, secondary to #Symptomatic hyponatremia #Intractable nausea and vomiting, resolved #Electrolyte imbalances Most likely secondary to dehydration, GI losses and hyperglycemia. Na+ 116 glucose 380 corrected sodium for hyperglycemia 121. Nephrology was consulted we greatly appreciate recommendations. Sodium 129 today, corrected sodium for sugars 132 Started on D5 b/c sodium was corrected too quickly Concern for encephalopathy as pt is not at her baseline Plan: ? D5W 100 cc/hour ? Follow-up Na+ every 5 hours ? Avoid overcorrection of Na+ 4 to 6 mEq in 24 hours ? Follow-up CMP ?Zofran ?Neurology consult #Pyelonephritis. No leukocytosis. UA no WBCs, RBCs 4, negative for bacteria otherwise. CT abdomen pelvis showed Perinephric stranding with mild to moderate bilateral renal parenchymal scar, formation, no hydronephrosis or ureteral calculi. Plan: ? IV Rocephin 2 g daily. ? Follow-up urine cultures. ? Follow-up CBC and CMP. #Right hand injury. #Acute fracture of proximal phalanx of fourth digit. Secondary to fall, hand x-ray showed Acute fractures proximal phalanx fourth digit. Placed splint Dr Maurer will see patient after [place] Plan: ? [place] every 6 hours as needed for pain. ? IV morphine 1 mg every 4 hours. ? Ortho consult #TRISTAN, improved. Most likely prerenal in the setting of severe dehydration and poor oral intake Creatinine 1.3 today (baseline creatinine 1.0) Plan: - IV fluids - Strict ins and outs. - Avoid nephrotoxic drugs. - Renally dose medications. - Follow-up CMP #Hx of colon cancer s/p bowel resection Patient does not get any treatment currently, in remission at this time #Diabetes mellitus type 2. On metformin 500 mg BID at home, remote history of insulin treatment. HgbA1C 9.8%. Plan: ? Hold home medications. ? Accu-Cheks. ? Sliding scale insulin. ? Hypoglycemia protocol in place. #Hx of hypothyroidism. #Low TSH TSH 0.09; Free T4 1.32 Could be reactive Plan: ?Continue home levothyroxine 125 mcg daily. #Acute on chronic anemia Possibly secondary to CKD vs anemia of chronic diseases. Need to workup Plan: ?Follow-up CBC. ?Transfuse if hemoglobin less than 7. ?Iron studies ?GI consult #Intertrigo. Patient reports rash between her breast which is very itchy, consistent with hilton infection. Plan: ?Nystatin powder BID. #Health Maintenance Disposition: MedSurg DVT prophylaxis: Heparin GI prophylaxis: Protonix Diet: Carb consistent CODE STATUS: DNR Patient seen and care discussed with my senior resident, Dr. Hagan, and my attending physician, Dr. Annamarie John, PGY-1 Attending Provider Attestation/Addendum I have examined the patient, reviewed labs and imaging findings, discussed the case with the resident(s), and reviewed entered orders. I agree with the plan of care as outlined in this note, with these additional summaries/recommendations: Patient seen at bedside. Patient downgraded from the ICU overnight. Overnight patient had a code muro called for agitation and was given Haldol, Ativan and Benadryl. Today at bedside she is cooperative but not yet back to baseline. Acute encephalopathy may be secondary to metabolic etiology vs infectious and we will monitor for improvement with treatment of underlying etiologies. Patient was diagnosed with hypovolemic hyponatremia secondary to nausea/vomiting and diarrhea. Nephrology was consulted and following. To avoid overcorrection patient was started on D5W. Will continue to trend sodium every 5 hours. Patient also suspected of having pyelonephritis as perinephric fat stranding was seen on CT although urinalysis had no bacteria. We will continue IV Rocephin for now and follow-up urine culture when available. Patient was also found to have acute fracture of the proximal phalanx of fourth digit on right hand. Patient currently not reporting pain and Ortho to evaluate. Patient was noted to have acute kidney injury on admission secondary to prerenal azotemia and receiving IV fluids with improvement. Creatinine now 1.3 and repeat renal panel in AM. Avoid nephrotoxic agents and renally dose medications. Continue insulin sliding scale for uncontrolled diabetes mellitus type 2. A1c 9.8% and diabetic education. Continue home levothyroxine. Repeat hematology and chemistry panel in AM. Dr. De Luna
[2024-07-17 13:44] LABS: Sodium 127 mMol/L (136-145)
--- NOTE | 2024-07-17 14:27 | PD.IMCONS ---
HPI Data of Consult Requesting Physician: Ez De Luna MD Primary Care Provider: Magdalene Aquino NP Consult Narrative Reason for consult: Anemia hemoglobin hematocrit 8.0 and 24.4 History of present illness: 63 years old female admitted on 07/15/2024 with chief complaint of nausea vomiting for 1 week dizziness vertigo and presenting sodium of 116 which has been corrected now 129 Nausea vomiting has been gradually improving and is much better now Patient has fallen down at home and has a right hand fourth meta carpal fracture She got agitated last night requiring Haldol No history of any [place] GI bleeding Patient does take naproxen at home and also gabapentin cc:: cc: Ez De Luna MD Review of Systems Review of Systems Systems Reviewed: All systems reviewed, normal except as documented Meds Home Medications and Allergies Home Medications ?Medication ?Instructions ?Recorded ?Confirmed ?Type levothyroxine 150 mcg tablet 150 mcg PO QDAY 04/29/22 07/16/24 History ergocalciferol (vitamin D2) 200 10 mcg PO QDAY 10/21/22 07/16/24 History mcg/mL (8,000 unit/mL) oral drops gabapentin 300 mg capsule 300 mg PO HS 01/27/23 07/16/24 History trazodone 100 mg tablet 200 mg PO HS 01/27/23 07/16/24 History sitagliptin phosphate 50 1 tab PO BID 01/28/23 07/16/24 History mg-metformin 1,000 mg tablet (Janumet) buspirone 10 mg tablet 10 mg PO QDAY 03/18/23 07/16/24 History hydroxyzine HCl 25 mg tablet 25 mg PO HS 03/18/23 07/16/24 History meloxicam 7.5 mg tablet 7.5 mg PO BID PRN Muscle Pain 03/18/23 07/16/24 History naproxen 375 mg tablet 375 mg PO TID 03/18/23 07/16/24 History simvastatin 80 mg tablet 80 mg PO QDAY 03/18/23 07/16/24 History tizanidine 4 mg tablet 4 mg HS PRN Muscle Spasm 03/18/23 07/16/24 History Allergies Allergy/AdvReac Type Severity Reaction Status Date / Time No Known Allergies Allergy Verified 09/14/23 13:05 Exam Vital Signs Temp Pulse Resp BP Pulse Ox O2 Del Method 97.5 F 88 17 146/86 H 95 Room Air 07/17/24 11:33 07/17/24 12:00 07/17/24 11:33 07/17/24 11:33 07/17/24 11:33 07/17/24 11:33 Constitutional Comments: Alert oriented at this time Routine Respiratory Exam Comments: Normal to auscultation Routine Abdominal Exam Comments: Soft nontender Results Labs 07/17/24 05:09 07/17/24 12:51 Labs: Short CBC 07/17/24 Range/Units 05:09 WBC 7.2 (3.6-11.0) Thou/mm3 Hgb 8.0 L (12.0-16.0) g/dL Hct 24.4 L (36.0-46.0) % Plt Count 268 (140-440) Thou/mm3 BMP 07/16/24 07/16/24 07/16/24 17:04 17:04 21:39 Sodium 126 L 126 L 129 L Potassium 3.4 Chloride 93 L Carbon Dioxide 21.5 BUN 20 Creatinine 1.5 H Glucose 287 H Calcium 9.2 07/17/24 07/17/24 07/17/24 01:21 05:09 09:43 Sodium 131 L 129 L 128 L Potassium 3.6 Chloride 96 L Carbon Dioxide 25.1 BUN 20 Creatinine 1.3 Glucose 271 H Calcium 9.3 07/17/24 12:51 Sodium 127 L Potassium Chloride Carbon Dioxide BUN Creatinine Glucose Calcium Liver Function 07/17/24 Range/Units 05:09 Total Bilirubin 0.4 (0.3-1.2) mg/dL AST 35 H (0-34) U/L ALT 17 (10-49) U/L Alkaline Phosphatase 75 (46-116) U/L Albumin 4.3 (3.4-4.8) gm/dL Urine 07/17/24 Range/Units 03:46 Urine Color Lt-Yellow (Lt Yel-Yel) Urine Clarity Clear (Clear/Hazy) Urine pH 5.5 (5.0-7.0) Ur Specific [place] 1.012 (1.001-1.035) Urine Protein 1+ A (Neg - Trace) Urine Glucose (UA) 4+ A (Negative) ABG Interpretation ABG results: 07/15/24 22:58 ABG pH 7.40 ABG pCO2 39 ABG pO2 64 L ABG HCO3 24 ABG O2 Saturation 93 ABG Base Excess -1 Assessment and Plan Additional Assessment & Plan Additional Plan: # Drop in hemoglobin hematocrit since admission currently at 8.0 and 24.4 Plan is Iron panel B12 folate level Reticulocyte count Stool for Hemoccult testing Fiberoptic esophagogastroduodenoscopy with possible biopsy possible therapeutic intervention under intravenous moderate sedation scheduled for tomorrow In case the EGD is negative we will consider doing a fibrotic colonoscopy prior to discharge Other medical problems include # Hyponatremia improving # Altered mental status dizziness improving # Pyelonephritis on IV antibiotics Thank you very much for the opportunity to participate in the care of this patient
[2024-07-17 15:54] LABS: Iron 16 mcg/dL (50-170); Percent Iron Saturation 4 % (20-55); Total Iron Binding Capacity 385 mcg/dL (250-425); Unsaturated Iron Binding 369 (225-295)
[2024-07-17 16:13] LABS: Vitamin B12 327 pg/mL (211-911)
[2024-07-17 18:38] LABS: Sodium 126 mMol/L (136-145)
[2024-07-17] MEDS: traZODone HCL 50 MG TABLET 200 MG PO (21:16)
[2024-07-17] MEDS: HYDROcodone/APAP 5/325 TABLET 1 TAB PO (22:49)
[2024-07-17 23:59] LABS: Sodium 129 mMol/L (136-145)
[2024-07-18] VITALS (20 sets, daily range): BP systolic 99–194; BP diastolic 62–135; PULSE 68–89; RESP 9–18; TEMP 35.8–36.8; O2SAT 93–99
[2024-07-18] MEDS: LEVOTHYROXINE SODIUM 25 MCG TABLET 125 MCG PO (05:03)
[2024-07-18] MEDS: ACETAMINOPHEN 325 MG TABLET 650 MG PO (05:03)
[2024-07-18] MEDS: HEPARIN SOD INJ 5000 UNIT/ML VIAL SC ×2 (05:24→21:41)
[2024-07-18 05:43] LABS: Basophils % (Auto) 1 % (0-2.5); Eosinophils # (Auto) 0.4 Thou/mm3 (0.0-0.5); Eosinophils % (Auto) 6 % (0-10); Immature Granulocytes % (Auto) 0 % (0-0); Immature Granulocytes Auto 0.01 Thou/mm3 (0.00-0.00); Lymphocytes # (Auto) 2.5 Thou/mm3 (1.0-4.8); Lymphocytes % (Auto) 37 % (10-50); Mean Corpuscular HGB Conc 31.7 g/dl (31.0-37.0); Mean Corpuscular Hemoglobin 22.8 pg (25.0-35.0); Mean Corpuscular Volume 72 fL (80-100); Monocytes # (Auto) 0.6 Thou/mm3 (0.0-0.8); Monocytes % (Auto) 8 % (0-12); Neutrophils # (Auto) 3.3 Thou/mm3 (1.8-7.7); Neutrophils % (Auto) 49 % (37-80); Nucleated Red Blood Cell % 0 /100 WBC (0); Platelet Count 248 Thou/mm3 (140-440); RDW Standard Deviation 41.1 fL (36.4-46.3); Red Blood Count 3.33 Miln/mm3 (4.00-5.20); White Blood Count 6.8 Thou/mm3 (3.6-11.0)
[2024-07-18 05:53] LABS: Hemoglobin 7.6 g/dL (12.0-16.0)
[2024-07-18 06:15] LABS: Ferritin 16 ng/mL (7.3-270.7)
[2024-07-18 06:22] LABS: Alanine Aminotransferase 14 U/L (10-49); Albumin, Serum 3.9 gm/dL (3.4-4.8); Albumin/Globulin Ratio 1.7 (1.2-2.2); Alkaline Phosphatase 70 U/L (46-116); Anion Gap 9 (7-16); Aspartate Amino Transferase 14 U/L (0-34); BUN/Creatinine Ratio 17 Ratio (12-20); Bilirubin,Total 0.4 mg/dL (0.3-1.2); Blood Urea Nitrogen 22 mg/dL (9-23); Calcium 8.7 mg/dL (8.3-10.6); Calcium (Corrected) 8.8 mg/dL (8.5-10.1); Chloride 96 mMol/L (98-107); Creatinine (Component) 1.3 mg/dL (0.6-1.3); Globulin 2.3 gm/dL (2.3-3.5); Glucose 255 mg/dL (74-106); Osmolality,Calculated 269 (275-295); Sodium 128 mMol/L (136-145); Total Protein 6.2 gm/dL (5.7-8.2); eGFR 46 See Note
[2024-07-18] MEDS: NYSTATIN PWD 15 GM BTL TOP ×2 (08:44→20:35)
[2024-07-18] MEDS: BusPIRone HCL 5 MG TABLET 10 MG PO (08:44)
[2024-07-18] MEDS: cefTRIAXone/D5w 1gm IV premix 50 ML IV (08:44)
[2024-07-18] MEDS: PANTOPRAZOLE INJ 40 MG VIAL IVP (08:45)
[2024-07-18] MEDS: INSULIN LISPRO (AdmeLOG) 1 UNIT/0.01 ML UNIT SC ×3 (08:47→20:34)
--- NOTE | 2024-07-18 09:00 | PD.NEPHPROG ---
Documentation for date of: 07/18/24 Subjective Subjective Interval history: Ms. contreras is a 63-year-old woman with past medical history of diabetes mellitus type 2, hyperlipidemia, hypothyroidism, anxiety, neuropathy and colon cancer s/p resection came to the ED due to chief complaint of vomiting, loose stools, poor oral intake and generalized weakness for 1 week associated to mild abdominal pain and nonproductive cough. she also stated that she was feeling dizzy and sustained a fall injuring her right hand twice. she denied LOC. patient denied chest pain, dysuria, melena, hematemesis. Home medications included albuterol Augmentin BuSpar vitamin D, gabapentin, [place], hydroxyzine, Janumet, levothyroxine, meloxicam, naproxen, prednisone, simvastatin, salt tabs, tizanidine, trazodone Of note patient was noted to have on and off episodes of hyponatremia needing salt tablets. In the emergency department sodium 119, Hgb 9.5 HCT 28.6, ABGs unremarkable 116, creatinine 1.7, glucose 380, osmolality 263, beta-hydroxybutyrate negative, influenza, COVID and RSV negative Imaging: Chest x-ray was negative for acute disease, hand x-ray showed Acute fractures proximal phalanx fourth digit, CT head was negative, CT abdomen pelvis showed Perinephric stranding with mild to moderate bilateral renal parenchymal scar, formation, no hydronephrosis or ureteral calculi, EKG sinus rhythm no acute ST changes or T wave inversions per my interpretation Normal saline was started and patient admitted for symptomatic hyponatremia. Renal consultation requested for hyponatremia. Patient currently seen in the emergency department. She seems to be more alert and awake although nurse stated that on and off she is having episodes of agitation. When I saw her she is completely alert and awake. However her sodium tessie from 119-126 and I started her on D5W to avoid overcorrection 07/18/2024 patient currently seen in medical floor. She is more alert and awake. Sodium 128. Will discontinue D5W. If serum sodium greater than 128 tomorrow can be discharged. Spoke to primary team. Noted hemoglobin low-GI consultation requested Review of Systems Review of Systems Narrative Review of Systems: Patient more alert and awake. Denies any chest pain, shortness of breath. Denies any nausea, vomiting Exam Vital Signs Temp Pulse Resp BP Pulse Ox O2 Del Method 36.8 C 85 17 133/79 H 93 L Room Air 07/18/24 08:00 07/18/24 08:00 07/18/24 08:00 07/18/24 08:00 07/18/24 08:00 07/18/24 08:00 Narrative Exam GENERAL APPEARANCE: Patient seems to be comfortable, adequately hydrated and nourished. HEENT: EOMI, PERRLA NECK: Neck supple, no JVD or bruit CARDIOVASCULAR: Heart regular, no murmurs LUNGS/CHEST: Chest clear to auscultation. No rales, rhonchi, wheezing ABDOMEN: Soft, nontender, nondistended. No masses. Normal bowel sounds. EXTREMITIES: No edema, clubbing or cyanosis. SKIN: Skin exam normal without any rashes MUSCULOSKELETAL: Right hand swollen NEUROLOGICAL : No neurological deficits, alert and awake Objective Labs 07/19/24 04:49 07/19/24 04:49 Labs: Laboratory Results - last 24 hr 07/17/24 07/17/24 07/17/24 05:06 09:43 12:51 WBC RBC Hgb Hct MCV MCH MCHC RDW Std Deviation Plt Count Neut % (Auto) Lymph % (Auto) [place] % (Auto) Eos % (Auto) Baso % (Auto) Neut # (Auto) Lymph # (Auto) [place] # (Auto) Eos # (Auto) Baso # (Auto) Immature Gran # (Auto) Absolute Nucleated RBC Immature Gran % Nucleated RBC % Sodium 128 L 127 L Potassium Chloride Carbon Dioxide Anion Gap BUN Creatinine Estim Creat Clear Calc eGFR BUN/Creatinine Ratio Glucose Calculated Osmolality Calcium Corrected Calcium Iron 16 L TIBC 385 Iron Saturation 4 L Unsat Iron Binding 369 H Ferritin Total Bilirubin AST ALT Alkaline Phosphatase Total Protein Albumin Globulin Albumin/Globulin Ratio Vitamin B12 327 Folate 13.40 07/17/24 07/17/24 07/18/24 18:19 23:10 05:08 WBC 6.8 RBC 3.33 L Hgb 7.6 L Hct 24.0 L MCV 72 L MCH 22.8 L MCHC 31.7 RDW Std Deviation 41.1 Plt Count 248 Neut % (Auto) 49 Lymph % (Auto) 37 [place] % (Auto) 8 Eos % (Auto) 6 Baso % (Auto) 1 Neut # (Auto) 3.3 Lymph # (Auto) 2.5 [place] # (Auto) 0.6 Eos # (Auto) 0.4 Baso # (Auto) 0.0 Immature Gran # (Auto) 0.01 H Absolute Nucleated RBC 0.00 Immature Gran % 0 Nucleated RBC % 0 Sodium 126 L 129 L 128 L Potassium 4.0 Chloride 96 L Carbon Dioxide 23.0 Anion Gap 9 BUN 22 Creatinine 1.3 Estim Creat Clear Calc 42.0 L eGFR 46 L BUN/Creatinine Ratio 17 Glucose 255 H Calculated Osmolality 269 L Calcium 8.7 Corrected Calcium 8.8 Iron TIBC Iron Saturation Unsat Iron Binding Ferritin 16 Total Bilirubin 0.4 AST 14 ALT 14 Alkaline Phosphatase 70 Total Protein 6.2 Albumin 3.9 Globulin 2.3 Albumin/Globulin Ratio 1.7 Vitamin B12 Folate ABG Interpretation ABG results: 07/15/24 22:58 ABG pH 7.40 ABG pCO2 39 ABG pO2 64 L ABG HCO3 24 ABG O2 Saturation 93 ABG Base Excess -1 Assessment & Plan Assessment and plan (1) Hyponatremia: Status: Acute Assessment and plan: Hyponatremia secondary to hypovolemic state from nausea, vomiting, loose stools and decreased p.o. intake. Sodium rapidly corrected. Will switch IV fluids to D5W to avoid overcorrection. CT brain negative. Will monitor sodium closely. Patient downgraded from ICU 07/18/24 today sodium seems to be better at 128. off D5W and wait for auto correction. If sodium greater than 128 can be discharged tomorrow. Spoke to primary team. (2) TRISTAN (acute kidney injury): Status: Acute Assessment and plan: TRISTAN secondary to prerenal azotemia. Creatinine started to improve. 1.3. Will DC IV fluids. Patient alert and awake and is able to drink fluids. (3) Hyperglycemia: Status: Acute Assessment and plan: Patient came with a glucose 380. On sliding scale and consistent carb low (4) Hand fracture, right: Status: Acute Assessment and plan: Status post fall with hand fracture. Mathew wrap. (5) Vomiting: Status: Acute Assessment and plan: Question related to gastroenteritis. On Zofran. better (6) Anemia: Status: Inactive Assessment and plan: GI consultation requested
[2024-07-18 09:45] LABS: Magnesium 1.9 mg/dL (1.6-2.6); Phosphorous 4.2 mg/dL (2.4-5.1)
--- NOTE | 2024-07-18 13:33 | ESPR_ITS ---
<Statement entered by Riccardo Hagan MD - 07/18/24 15:18> Patient was seen and examined at bedside. Patient was oriented x 2 she was confused about the year she thought it was 2079. No overnight incidents, patient is cooperative and talkative. Her sodium level this morning is 128, serum creatinine is 1.3. The hydraulic rubbish compactor mechanic Dr. Salomon recommended to continue the patient on sodium tablets 1 tab daily. Patient undergone EGD today by Dr. Plascencia in which patient was found to have esophagitis and gastritis, biopsy was taken. There was no source of bleeding was identified for that reason patient will be prepared for colonoscopy tomorrow. She is on clear liquid diet at this time. Regarding her acute encephalopathy patient seems to be improving however was still pending Dr. Wen the neurologist recommendations. Patient was asking for pain medication as she is on Cohagen at home for her chronic back pain for that reason we will resume her Cohagen as the patient mental status almost back to baseline as there was concern that her pain medication may have precipitated her acute ankle Comfort. Regarding her fourth proximal phalanx fracture of the right hand patient at this time has splint no signs of neurovascular compromise at this time pending for orthopedic surgeon Dr. Maurer recommendation. Her diabetes mellitus at this time is not optimally controlled as the patient was put n.p.o. for her EGD and also she was only on clear liquid diet. Will adjust her insulin cautiously after the patient finished her GoLytely at this time. - Patient's plan and care discussed with my attending, Dr. Annamarie Hagan MD Internal Medicine PGY-2 Documentation for date of: 07/18/24 Subjective Subjective Interval history: Patient examined at bedside today. No acute overnight events, however she wanted 1 Cohagen overnight for some pain. Patient reports she has no complaints at this time she is ready for the EGD and says she has had 1 before. Denies any bloody bowel movements or throwing up blood. No other complaints this time Exam Vital Signs Temp Pulse Resp BP Pulse Ox O2 Del Method O2 Flow Rate 97.5 F 84 12 101/71 96 Room Air 1 07/18/24 12:55 07/18/24 13:10 07/18/24 13:10 07/18/24 13:10 07/18/24 13:10 07/18/24 12:00 07/18/24 13:10 Narrative Exam General: AAOx2, oriented to time, NAD, HEENT: Dry mucous membranes, poor dentition, conjunctiva clear, EOMI, PERRLA, Cardiovascular: S1, S2, radial pulses +2 bilat, RRR Pulmonary: CTAB bilat no cough, no wheezing GI: No tenderness to light or deep palpitation, no guarding, rigidity, rebound tenderness or distension Extremities: No presence of trace or pitting edema in lower extremities bilaterally, dorsalis pedis pulses +2 bilaterally Neuro: AAOx2 not alert to time/date, no focal motor or sensory deficits in the UE or LE bilat Psych: Good behavior, able to cooperate Objective Labs 07/18/24 05:08 07/18/24 05:08 Labs: Laboratory Results - last 24 hr 07/17/24 07/17/24 07/17/24 05:06 12:51 18:19 WBC RBC Hgb Hct MCV MCH MCHC RDW Std Deviation Plt Count Neut % (Auto) Lymph % (Auto) [place] % (Auto) Eos % (Auto) Baso % (Auto) Neut # (Auto) Lymph # (Auto) [place] # (Auto) Eos # (Auto) Baso # (Auto) Immature Gran # (Auto) Absolute Nucleated RBC Immature Gran % Nucleated RBC % Sodium 127 L 126 L Potassium Chloride Carbon Dioxide Anion Gap BUN Creatinine Estim Creat Clear Calc eGFR BUN/Creatinine Ratio Glucose Calculated Osmolality Calcium Corrected Calcium Phosphorus Magnesium Iron 16 L TIBC 385 Iron Saturation 4 L Unsat Iron Binding 369 H Ferritin Total Bilirubin AST ALT Alkaline Phosphatase Total Protein Albumin Globulin Albumin/Globulin Ratio Vitamin B12 327 Folate 13.40 07/17/24 07/18/24 23:10 05:08 WBC 6.8 RBC 3.33 L Hgb 7.6 L Hct 24.0 L MCV 72 L MCH 22.8 L MCHC 31.7 RDW Std Deviation 41.1 Plt Count 248 Neut % (Auto) 49 Lymph % (Auto) 37 [place] % (Auto) 8 Eos % (Auto) 6 Baso % (Auto) 1 Neut # (Auto) 3.3 Lymph # (Auto) 2.5 [place] # (Auto) 0.6 Eos # (Auto) 0.4 Baso # (Auto) 0.0 Immature Gran # (Auto) 0.01 H Absolute Nucleated RBC 0.00 Immature Gran % 0 Nucleated RBC % 0 Sodium 129 L 128 L Potassium 4.0 Chloride 96 L Carbon Dioxide 23.0 Anion Gap 9 BUN 22 Creatinine 1.3 Estim Creat Clear Calc 42.0 L eGFR 46 L BUN/Creatinine Ratio 17 Glucose 255 H Calculated Osmolality 269 L Calcium 8.7 Corrected Calcium 8.8 Phosphorus 4.2 Magnesium 1.9 Iron TIBC Iron Saturation Unsat Iron Binding Ferritin 16 Total Bilirubin 0.4 AST 14 ALT 14 Alkaline Phosphatase 70 Total Protein 6.2 Albumin 3.9 Globulin 2.3 Albumin/Globulin Ratio 1.7 Vitamin B12 Folate ABG Interpretation ABG results: 07/15/24 22:58 ABG pH 7.40 ABG pCO2 39 ABG pO2 64 L ABG HCO3 24 ABG O2 Saturation 93 ABG Base Excess -1 Quality Measures Quality Measures none Assessment & Plan Assessment Current Active Medications: Generic Name Dose Route Start Last Admin Trade Name Freq PRN Reason Stop Dose Admin Acetaminophen 650 mg 07/15/24 21:42 07/18/24 05:03 Acetaminophen 325 Mg Tablet PO 08/14/24 21:41 650 mg Q4HR PRN Administration Pain Scale 1-3 fever 100.4 Hydrocodone Bitart/Acetaminophen 1 tab 07/18/24 08:10 Hydrocodone/Apap 5/325 Tablet PO 07/23/24 08:06 Q8HR PRN PAIN SCALE 4-10(Mod-Sev Buspirone HCl 10 mg 07/16/24 09:30 07/18/24 08:44 Buspirone Hcl 5 Mg Tablet PO 08/15/24 09:29 10 mg QDAY ABRAN Administration Dextrose 25 ml 07/15/24 23:48 Dextrose 50%-Water Inj 50 Ml Syringe IV 08/14/24 23:47 Q15MIN PRN BG 50-70 responsive npo pt Dextrose 50 ml 07/15/24 23:48 Dextrose 50%-Water Inj 50 Ml Syringe IV 08/14/24 23:47 Q15MIN PRN BG <50 OR BG <70 & pt unresponsive Diphenhydramine HCl 25 mg 07/18/24 11:57 Diphenhydramine Inj 50 Mg/Ml Vial IV [id number] PRN MODERATE SEDATION Fentanyl Citrate 50 mcg 07/18/24 11:57 Fentanyl Cit Inj 50 Mcg/Ml Amp 2ml IV Q2M PRN MODERATE SEDATION Glucagon 1 mg 07/15/24 23:48 Glucagon Inj 1 Mg Vial IM Q15MIN PRN BG <70, and no IV access Heparin Sodium (Porcine) 5,000 unit 07/15/24 22:00 07/18/24 13:30 Heparin Sod Inj 5000 Unit/Ml Vial SC 07/29/24 21:59 Not Given Q8HR ABRAN Hydralazine HCl 10 mg 07/16/24 04:46 Hydralazine Inj 20 Mg/Ml Vial IV 08/15/24 04:45 Q6HR PRN SBP > 170 Ceftriaxone Sodium/Dextrose 50 mls @ 100 mls/hr 07/18/24 09:00 07/18/24 08:44 Rocephin/D5w 1gm Iv Premix IV 07/25/24 08:59 100 mls/hr QDAY ABRAN Administration Insulin Human Lispro 0 unit 07/18/24 08:15 07/18/24 12:11 Insulin Lispro (Admelog) 1 Unit/0.01 Ml Unit SC 08/17/24 08:14 Not Given ACHS [facility] Protocol Levothyroxine Sodium 125 mcg 07/16/24 06:00 07/18/24 05:03 Levothyroxine Sodium 25 Mcg Tablet PO 08/15/24 05:59 125 mcg ACBR ABRAN Administration Meperidine HCl 25 mg 07/18/24 12:43 Meperidine Inj 50 Mg/Ml Vial IV 07/18/24 14:43 Q2M PRN MODERATE SEDATION Midazolam HCl 2 mg 07/18/24 11:57 Midazolam Inj 1 Mg/Ml Vial 2 Ml IV Q2M PRN Moderate Sedation Nystatin 0 gm 07/16/24 21:00 07/18/24 08:44 Nystatin Pwd 15 Gm Btl TOP 08/15/24 20:59 1 applicatio BID ABRAN Administration Ondansetron HCl 4 mg 07/15/24 21:56 Ondansetron Inj 2 Mg/Ml Inj 2 Ml IV 08/14/24 21:55 Q6HR PRN NAUSEA OR VOMITING Pantoprazole Sodium 40 mg 07/16/24 09:00 07/18/24 08:45 Pantoprazole Inj 40 Mg Vial IVP 08/15/24 08:59 40 mg QDAY ABRAN Administration Polyethylene Glycol/Electrolytes 4,000 ml 07/19/24 05:00 Na Sal/Nahco3/Eric/Peg (Golytely) 4,000 Ml Btl PO 07/19/24 05:01 X1 ONE Trazodone HCl 200 mg 07/16/24 21:00 07/17/24 21:16 Trazodone Hcl 50 Mg Tablet PO 08/15/24 20:59 200 mg HS ABRAN Administration Plan Assessment 63-year-old woman with past medical history of diabetes mellitus type 2, hyperlipidemia, hypothyroidism and colon cancer s/p resection came to the ED due to chief complaint of vomiting, poor oral intake and generalized weakness for 1 week associated to mild abdominal pain and nonproductive cough. she also stated that she was feeling dizzy and sustained a fall injuring her right hand twice she denied LOC. patient denied chest pain, dysuria, melena, hematemesis or any other associated symptoms different than the mentioned above. ED course: Initial vitals: Blood pressure 135/83 HR 93 RR 18 afebrile SpO2 98% on room air Pertinent labs: Hgb 9.5 HCT 28.6, ABGs unremarkable 116, creatinine 1.7, glucose 208, osmolality 263, beta-hydroxybutyrate negative, influenza, COVID and RSV negative Imaging: Chest x-ray was negative for acute disease, hand x-ray showed Acute fractures proximal phalanx fourth digit, CT head was negative, CT abdomen pelvis showed Perinephric stranding with mild to moderate bilateral renal parenchymal scar, formation, no hydronephrosis or ureteral calculi, EKG sinus rhythm no acute ST changes or T wave inversions per my interpretation. At the ED the patient received:1 L bolus NS, The patient will be admitted for further treatment and management of acute symptomatic hypoosmolar hyponatremia and pyelonephritis. #Acute encephalopathy, resolved #Hypoosmolar hyponatremia, improved, secondary to, resolved #Symptomatic hyponatremia #Intractable nausea and vomiting, resolved #Electrolyte imbalances Most likely secondary to dehydration, GI losses and hyperglycemia. Na+ 116 glucose 380 corrected sodium for hyperglycemia 121. Nephrology was consulted we greatly appreciate recommendations. Sodium 128 today, pt is out of 48 hour window period Spoke with nephrology, recommend salt tabs upon d/c Plan: -Salt tabs 1 g qday ?Follow-up CMP ?Zofran ?Neurology consult #? GI bleed #Acute on chronic anemia Possibly secondary to CKD vs anemia of chronic disease Pt to get EGD today Ferritin and TIBC normal, Iron is ~16 (low) Plan: ?Follow-up CBC. ?Transfuse if hemoglobin less than 7. ?Follow up EGD results #Pyelonephritis. No leukocytosis. UA no WBCs, RBCs 4, negative for bacteria otherwise. CT abdomen pelvis showed Perinephric stranding with mild to moderate bilateral renal parenchymal scar, formation, no hydronephrosis or ureteral calculi. Urine culture shows pansensitive Klebsiella, will down titrate abx Plan: ? IV Rocephin 1 g daily. ? Follow-up CBC and CMP. #Right hand injury. #Acute fracture of proximal phalanx of fourth digit. Secondary to fall, hand x-ray showed Acute fractures proximal phalanx fourth digit. Placed splint Dr Maurer will see patient after [place] Plan: ? Cohagen every 6 hours as needed for pain. ? IV morphine 1 mg every 4 hours. ? Ortho consult #TRISTAN, improved. Most likely prerenal in the setting of severe dehydration and poor oral intake Creatinine 1.3 today (baseline creatinine 1.0) Plan: - Strict ins and outs. - Avoid nephrotoxic drugs. - Renally dose medications. - Follow-up CMP #Hx of colon cancer s/p bowel resection Patient does not get any treatment currently, in remission at this time #Diabetes mellitus type 2. On metformin 500 mg BID at home, remote history of insulin treatment. HgbA1C 9.8%. Sugar 255, will adjust for lantus and short acting after pt is not NPO Plan: ? Accu-Cheks. ? Sliding scale insulin. ? Hypoglycemia protocol in place. #Hx of hypothyroidism. #Low TSH TSH 0.09; Free T4 1.32 Could be reactive Plan: ?Continue home levothyroxine 125 mcg daily. #Intertrigo. Patient reports rash between her breast which is very itchy, consistent with hilton infection. Plan: ?Nystatin powder BID. #Health Maintenance Disposition: MedSurg DVT prophylaxis: Heparin GI prophylaxis: Protonix Diet: NPO CODE STATUS: DNR Patient seen and care discussed with my senior resident, Dr. Hagan, and my attending physician, Dr. Annamarie John, PGY-1 Attending Provider Attestation/Addendum I have examined the patient, reviewed labs and imaging findings, discussed the case with the resident(s), and reviewed entered orders. I agree with the plan of care as outlined in this note. Dr. De Luna
--- NOTE | 2024-07-18 13:34 | SUR.PHASEI ---
1255:pt arrived to PACU via gurney drowsy but arouses to verbal commands, breathing unlabored, VS stable, report from Becca DALE 1334:pt tolerating oral fluids without difficulty swallowing, breathing unlabored, VS stable, report called to Jen DALE, pt transferred to room at this time.
--- NOTE | 2024-07-18 14:33 | PC.SS ---
Rounding Note: Plan is for endoscopy today. Colonoscopy planned for tomorrow. Hemoglobin low.
[2024-07-18] MEDS: SODIUM CHLORIDE 1 GM TABLET PO (15:02)
[2024-07-18] MEDS: INSULIN GLARGINE (Lantus) 5 UNIT/0.05 ML (PER 5 UNITS) 10 UNIT SC (16:04)
[2024-07-18] MEDS: traZODone HCL 50 MG TABLET 200 MG PO (20:27)
[2024-07-18] MEDS: HYDROcodone/APAP 5/325 TABLET 1 TAB PO (20:28)
--- NOTE | 2024-07-18 22:44 | PD.NEUROCONS ---
History of Present Illness Data of Consult Requesting Physician: Yoshi Thmopson MD Primary Care Provider: Magdalene Aquino NP Consult Narrative cc:: cc: Yoshi Thompson MD Meds Home Medications and Allergies Home Medications ?Medication ?Instructions ?Recorded ?Confirmed ?Type levothyroxine 150 mcg tablet 150 mcg PO QDAY 04/29/22 07/16/24 History ergocalciferol (vitamin D2) 200 10 mcg PO QDAY 10/21/22 07/16/24 History mcg/mL (8,000 unit/mL) oral drops gabapentin 300 mg capsule 300 mg PO HS 01/27/23 07/16/24 History trazodone 100 mg tablet 200 mg PO HS 01/27/23 07/16/24 History sitagliptin phosphate 50 1 tab PO BID 01/28/23 07/16/24 History mg-metformin 1,000 mg tablet (Janumet) buspirone 10 mg tablet 10 mg PO QDAY 03/18/23 07/16/24 History hydroxyzine HCl 25 mg tablet 25 mg PO HS 03/18/23 07/16/24 History meloxicam 7.5 mg tablet 7.5 mg PO BID PRN Muscle Pain 03/18/23 07/16/24 History naproxen 375 mg tablet 375 mg PO TID 03/18/23 07/16/24 History simvastatin 80 mg tablet 80 mg PO QDAY 03/18/23 07/16/24 History tizanidine 4 mg tablet 4 mg HS PRN Muscle Spasm 03/18/23 07/16/24 History Allergies Allergy/AdvReac Type Severity Reaction Status Date / Time No Known Allergies Allergy Verified 09/14/23 13:05 Exam - Neurology Vital Signs Temp Pulse Resp BP Pulse Ox O2 Del Method O2 Flow Rate 97.0 F 85 16 151/82 H 95 Room Air 2 07/18/24 20:00 07/18/24 20:00 07/18/24 20:00 07/18/24 20:00 07/18/24 20:00 07/18/24 20:00 07/18/24 13:25 Results Labs 07/18/24 05:08 07/18/24 05:08 Labs: Short CBC 07/18/24 Range/Units 05:08 WBC 6.8 (3.6-11.0) Thou/mm3 Hgb 7.6 L (12.0-16.0) g/dL Hct 24.0 L (36.0-46.0) % Plt Count 248 (140-440) Thou/mm3 BMP 07/17/24 07/18/24 23:10 05:08 Sodium 129 L 128 L Potassium 4.0 Chloride 96 L Carbon Dioxide 23.0 BUN 22 Creatinine 1.3 Glucose 255 H Calcium 8.7 Liver Function 07/18/24 Range/Units 05:08 Total Bilirubin 0.4 (0.3-1.2) mg/dL AST 14 (0-34) U/L ALT 14 (10-49) U/L Alkaline Phosphatase 70 (46-116) U/L Albumin 3.9 (3.4-4.8) gm/dL ABG Interpretation ABG results: 07/15/24 22:58 ABG pH 7.40 ABG pCO2 39 ABG pO2 64 L ABG HCO3 24 ABG O2 Saturation 93 ABG Base Excess -1 Assessment & Plan Assessment and plan (1) Hyponatremia: Status: Acute (2) TRISTAN (acute kidney injury): Status: Acute (3) Hyperglycemia: Status: Acute (4) Hand fracture, right: Status: Acute (5) Vomiting: Status: Acute
[2024-07-19] VITALS (9 sets, daily range): BP systolic 122–173; BP diastolic 58–98; PULSE 80–91; RESP 18–21; TEMP 36.2–36.9; O2SAT 92–95
[2024-07-19] MEDS: NA SU/NAHCO3/KC/PEG (Golytely) 4,000 ML BTL 4000 ML PO (05:09)
[2024-07-19] MEDS: HEPARIN SOD INJ 5000 UNIT/ML VIAL SC ×3 (05:10→21:19)
[2024-07-19] MEDS: LEVOTHYROXINE SODIUM 125 MCG TABLET PO (05:10)
[2024-07-19] MEDS: HYDROcodone/APAP 5/325 TABLET 1 TAB PO ×2 (05:17→14:12)
[2024-07-19 06:03] LABS: Basophils % (Auto) 1 % (0-2.5); Eosinophils # (Auto) 0.3 Thou/mm3 (0.0-0.5); Eosinophils % (Auto) 6 % (0-10); Immature Granulocytes % (Auto) 0 % (0-0); Monocytes # (Auto) 0.4 Thou/mm3 (0.0-0.8); Monocytes % (Auto) 7 % (0-12); Nucleated Red Blood Cell % 0 /100 WBC (0)
[2024-07-19 06:05] LABS: Hematocrit 23.3 % (36.0-46.0); Immature Granulocytes Auto 0.02 Thou/mm3 (0.00-0.00); Lymphocytes # (Auto) 1.8 Thou/mm3 (1.0-4.8); Lymphocytes % (Auto) 33 % (10-50); Mean Corpuscular HGB Conc 31.8 g/dl (31.0-37.0); Mean Corpuscular Hemoglobin 23.1 pg (25.0-35.0); Mean Corpuscular Volume 73 fL (80-100); Neutrophils % (Auto) 53 % (37-80); Platelet Count 247 Thou/mm3 (140-440); RDW Standard Deviation 41.2 fL (36.4-46.3); Red Blood Count 3.21 Miln/mm3 (4.00-5.20); White Blood Count 5.6 Thou/mm3 (3.6-11.0)
[2024-07-19 06:16] LABS: Hemoglobin 7.4 g/dL (12.0-16.0)
[2024-07-19 06:32] LABS: Alanine Aminotransferase 13 U/L (10-49); Albumin/Globulin Ratio 1.8 (1.2-2.2); Alkaline Phosphatase 68 U/L (46-116); Anion Gap 7 (7-16); Aspartate Amino Transferase 16 U/L (0-34); BUN/Creatinine Ratio 18 Ratio (12-20); Bilirubin,Total 0.4 mg/dL (0.3-1.2); Blood Urea Nitrogen 23 mg/dL (9-23); Calcium 9.1 mg/dL (8.3-10.6); Calcium (Corrected) 9.1 mg/dL (8.5-10.1); Carbon Dioxide 26.1 mMol/L (20.0-31.0); Chloride 98 mMol/L (98-107); Creatinine (Component) 1.3 mg/dL (0.6-1.3); Globulin 2.2 gm/dL (2.3-3.5); Glucose 304 mg/dL (74-106); Osmolality,Calculated 277 (275-295); Potassium 4.4 mMol/L (3.4-5.1); Sodium 131 mMol/L (136-145); Total Protein 6.2 gm/dL (5.7-8.2); eGFR 46 See Note
[2024-07-19] MEDS: INSULIN LISPRO (AdmeLOG) 1 UNIT/0.01 ML UNIT SC ×3 (07:30→20:34)
[2024-07-19] MEDS: INSULIN LISPRO (AdmeLOG) 1 UNIT/0.01 ML UNIT 3 UNIT SC ×2 (08:18→11:53)
[2024-07-19] MEDS: NYSTATIN PWD 15 GM BTL TOP ×2 (08:19→20:33)
[2024-07-19] MEDS: INSULIN GLARGINE (Lantus) 5 UNIT/0.05 ML (PER 5 UNITS) 28 UNIT SC (08:19)
[2024-07-19] MEDS: BusPIRone HCL 5 MG TABLET 10 MG PO (08:20)
[2024-07-19] MEDS: SODIUM CHLORIDE 1 GM TABLET PO (08:20)
[2024-07-19] MEDS: cefTRIAXone/D5w 1gm IV premix 50 ML IV (08:20)
[2024-07-19] MEDS: PANTOPRAZOLE INJ 40 MG VIAL IVP (08:20)
[2024-07-19 10:17] LABS: Magnesium 1.8 mg/dL (1.6-2.6)
--- NOTE | 2024-07-19 14:44 | ESPR_ITS ---
<Statement entered by Riccardo Hagan MD - 07/20/24 08:52> Patient was seen and examined at bedside. Agree on the Assessment and plan. - Patient's plan and care discussed with my attending, Dr. Annamarie Hagan MD Internal Medicine PGY-2 Documentation for date of: 07/19/24 Subjective Subjective Interval history: Patient examined at bedside today. No acute overnight events. Says she has been drinking the GoLytely. Is wondering when she is going to get her colonoscopy. Has not coughed up blood or had any bloody bowel movements. No other complaints at this time Exam Vital Signs Temp Pulse Resp BP Pulse Ox O2 Del Method O2 Flow Rate 97.2 F 82 18 173/92 H 95 Room Air 2 07/19/24 11:59 07/19/24 12:00 07/19/24 11:59 07/19/24 11:59 07/19/24 11:59 07/19/24 11:59 07/18/24 13:25 Narrative Exam General: AAOx2, not oriented to time, NAD, HEENT: Dry mucous membranes, poor dentition, conjunctiva clear, EOMI, PERRLA, Cardiovascular: S1, S2, radial pulses +2 bilat, RRR Pulmonary: CTAB bilat no cough, no wheezing GI: No tenderness to light or deep palpitation, no guarding, rigidity, rebound tenderness or distension Extremities: No presence of trace or pitting edema in lower extremities bilaterally, dorsalis pedis pulses +2 bilaterally Neuro: AAOx2 not alert to time/date, no focal motor or sensory deficits in the UE or LE bilat Psych: Good behavior, able to cooperate Objective Labs 07/19/24 04:49 07/20/24 04:49 Labs: Laboratory Results - last 24 hr 07/19/24 04:49 WBC 5.6 RBC 3.21 L Hgb 7.4 L Hct 23.3 L MCV 73 L MCH 23.1 L MCHC 31.8 RDW Std Deviation 41.2 Plt Count 247 Neut % (Auto) 53 Lymph % (Auto) 33 [place] % (Auto) 7 Eos % (Auto) 6 Baso % (Auto) 1 Neut # (Auto) 3.0 Lymph # (Auto) 1.8 [place] # (Auto) 0.4 Eos # (Auto) 0.3 Baso # (Auto) 0.0 Immature Gran # (Auto) 0.02 H Absolute Nucleated RBC 0.00 Immature Gran % 0 Nucleated RBC % 0 Sodium 131 L Potassium 4.4 Chloride 98 Carbon Dioxide 26.1 Anion Gap 7 BUN 23 Creatinine 1.3 Estim Creat Clear Calc 42.0 L eGFR 46 L BUN/Creatinine Ratio 18 Glucose 304 H Calculated Osmolality 277 Calcium 9.1 Corrected Calcium 9.1 Magnesium 1.8 Total Bilirubin 0.4 AST 16 ALT 13 Alkaline Phosphatase 68 Total Protein 6.2 Albumin 4.0 Globulin 2.2 L Albumin/Globulin Ratio 1.8 ABG Interpretation ABG results: 07/15/24 22:58 ABG pH 7.40 ABG pCO2 39 ABG pO2 64 L ABG HCO3 24 ABG O2 Saturation 93 ABG Base Excess -1 Quality Measures Quality Measures none Assessment & Plan Assessment Current Active Medications: Generic Name Dose Route Start Last Admin Trade Name Freq PRN Reason Stop Dose Admin Acetaminophen 650 mg 07/19/24 09:57 Acetaminophen 325 Mg Tablet PO 08/14/24 21:41 Q4HR PRN Pain Scale 1-3 fever>100.4 Hydrocodone Bitart/Acetaminophen 1 tab 07/18/24 08:10 07/19/24 14:12 Hydrocodone/Apap 5/325 Tablet PO 07/23/24 08:06 1 tab Q8HR PRN Administration PAIN SCALE 4-10(Mod-Sev Buspirone HCl 10 mg 07/16/24 09:30 07/19/24 08:20 Buspirone Hcl 5 Mg Tablet PO 08/15/24 09:29 10 mg QDAY ABRAN Administration Dextrose 25 ml 07/15/24 23:48 Dextrose 50%-Water Inj 50 Ml Syringe IV 08/14/24 23:47 Q15MIN PRN BG 50-70 responsive npo pt Dextrose 50 ml 07/15/24 23:48 Dextrose 50%-Water Inj 50 Ml Syringe IV 08/14/24 23:47 Q15MIN PRN BG <50 OR BG <70 & pt unresponsive Glucagon 1 mg 07/15/24 23:48 Glucagon Inj 1 Mg Vial IM Q15MIN PRN BG <70, and no IV access Heparin Sodium (Porcine) 5,000 unit 07/15/24 22:00 07/19/24 14:12 Heparin Sod Inj 5000 Unit/Ml Vial SC 07/29/24 21:59 5,000 unit Q8HR ABRAN Administration Hydralazine HCl 10 mg 07/16/24 04:46 Hydralazine Inj 20 Mg/Ml Vial IV 08/15/24 04:45 Q6HR PRN SBP > 170 Ceftriaxone Sodium/Dextrose 50 mls @ 100 mls/hr 07/18/24 09:00 07/19/24 08:20 Rocephin/D5w 1gm Iv Premix IV 07/25/24 08:59 100 mls/hr QDAY ABRAN Administration Insulin Glargine 28 unit 07/19/24 09:00 07/19/24 08:19 Insulin Glargine (Lantus) 5 Unit/0.05 Ml (Per 5 Units) SC 08/18/24 08:59 28 unit QDAY ABRAN Administration Insulin Human Lispro 0 unit 07/18/24 16:31 07/19/24 11:54 Insulin Lispro (Admelog) 1 Unit/0.01 Ml Unit SC 08/17/24 08:14 8 unit ACHS ABRAN Administration Protocol Insulin Human Lispro 3 unit 07/19/24 08:00 07/19/24 11:53 Insulin Lispro (Admelog) 1 Unit/0.01 Ml Unit SC 08/18/24 07:59 3 unit TIDWM ABRAN Administration Levothyroxine Sodium 125 mcg 07/19/24 06:00 07/19/24 05:10 Levothyroxine Sodium 125 Mcg Tablet PO 08/15/24 05:59 125 mcg ACBR ABRAN Administration Nystatin 0 gm 07/16/24 21:00 07/19/24 08:19 Nystatin Pwd 15 Gm Btl TOP 08/15/24 20:59 1 applicatio BID ABRAN Administration Ondansetron HCl 4 mg 07/15/24 21:56 Ondansetron Inj 2 Mg/Ml Inj 2 Ml IV 08/14/24 21:55 Q6HR PRN NAUSEA OR VOMITING Pantoprazole Sodium 40 mg 07/16/24 09:00 07/19/24 08:20 Pantoprazole Inj 40 Mg Vial IVP 08/15/24 08:59 40 mg QDAY ABRAN Administration Sodium Chloride 1 gm 07/18/24 13:45 07/19/24 08:20 Sodium Chloride 1 Gm Tablet PO 08/17/24 13:44 1 gm QDAY ABRAN Administration Trazodone HCl 200 mg 07/16/24 21:00 07/18/24 20:27 Trazodone Hcl 50 Mg Tablet PO 08/15/24 20:59 200 mg HS ABRAN Administration Plan Assessment 63-year-old woman with past medical history of diabetes mellitus type 2, hyperlipidemia, hypothyroidism and colon cancer s/p resection came to the ED due to chief complaint of vomiting, poor oral intake and generalized weakness for 1 week associated to mild abdominal pain and nonproductive cough. she also stated that she was feeling dizzy and sustained a fall injuring her right hand twice she denied LOC. patient denied chest pain, dysuria, melena, hematemesis or any other associated symptoms different than the mentioned above. ED course: Initial vitals: Blood pressure 135/83 HR 93 RR 18 afebrile SpO2 98% on room air Pertinent labs: Hgb 9.5 HCT 28.6, ABGs unremarkable 116, creatinine 1.7, glucose 208, osmolality 263, beta-hydroxybutyrate negative, influenza, COVID and RSV negative Imaging: Chest x-ray was negative for acute disease, hand x-ray showed Acute fractures proximal phalanx fourth digit, CT head was negative, CT abdomen pelvis showed Perinephric stranding with mild to moderate bilateral renal parenchymal scar, formation, no hydronephrosis or ureteral calculi, EKG sinus rhythm no acute ST changes or T wave inversions per my interpretation. At the ED the patient received:1 L bolus NS, The patient will be admitted for further treatment and management of acute symptomatic hypoosmolar hyponatremia and pyelonephritis. #Acute encephalopathy, resolved #Hypoosmolar hyponatremia, improved, secondary to, resolved #Symptomatic hyponatremia #Intractable nausea and vomiting, resolved #Electrolyte imbalances Most likely secondary to dehydration, GI losses and hyperglycemia. Na+ 116 glucose 380 corrected sodium for hyperglycemia 121. Nephrology was consulted we greatly appreciate recommendations. Sodium 128 today, pt is out of 48 hour window period Spoke with nephrology, recommend salt tabs upon d/c Patient is back to her baseline, per neurology Sodium 131 Plan: -Continue salt tabs 1 g qday ?Trend CMP ?Zofran #? GI bleed #Iron deficiency anemia #Acute on chronic anemia Possibly secondary to CKD vs anemia of chronic disease Pt to get EGD today Ferritin and TIBC normal, Iron is ~16 (low) EGD shows esophagitis gastritis Currently prepped for colonoscopy MCV microcytic in nature Plan: ?Follow-up CBC. ?Transfuse if hemoglobin less than 7. ?Follow up colonoscopy results #Pyelonephritis, improving No leukocytosis. UA no WBCs, RBCs 4, negative for bacteria otherwise. CT abdomen pelvis showed Perinephric stranding with mild to moderate bilateral renal parenchymal scar, formation, no hydronephrosis or ureteral calculi. Urine culture shows pansensitive Klebsiella, will down titrate abx Plan: ? IV Rocephin 1 g daily. ? Follow-up CBC and CMP. #Right hand injury. #Acute fracture of proximal phalanx of fourth digit. Secondary to fall, hand x-ray showed Acute fractures proximal phalanx fourth digit. Placed splint Patient to be seen by Ortho Plan: ? Ortho on consult, appreciate recs ? [place] every 6 hours as needed for pain. ? IV morphine 1 mg every 4 hours. ? Ortho consult #TRISTAN, improved. Most likely prerenal in the setting of severe dehydration and poor oral intake Creatinine 1.3 today (baseline creatinine 1.0) Plan: - Strict ins and outs. - Avoid nephrotoxic drugs. - Renally dose medications. - Follow-up CMP #Hx of colon cancer s/p bowel resection Patient does not get any treatment currently, in remission at this time #Diabetes mellitus type 2. On metformin 500 mg BID at home, remote history of insulin treatment. HgbA1C 9.8%. Sugar 255, will adjust for lantus and short acting after pt is not NPO Plan: ? Accu-Cheks. ? Sliding scale insulin. ? Hypoglycemia protocol in place. #Hx of hypothyroidism. #Low TSH TSH 0.09; Free T4 1.32 Could be reactive Plan: ?Continue home levothyroxine 125 mcg daily. #Intertrigo. Patient reports rash between her breast which is very itchy, consistent with hilton infection. Plan: ?Nystatin powder BID. #Health Maintenance Disposition: MedSurg DVT prophylaxis: Heparin GI prophylaxis: Protonix Diet: NPO CODE STATUS: DNR Patient seen and care discussed with my senior resident, Dr. Hagan, and my attending physician, Dr. Annamarie John, PGY-1 Attending Provider Attestation/Addendum I have examined the patient, reviewed labs and imaging findings, discussed the case with the resident(s), and reviewed entered orders. I agree with the plan of care as outlined in this note, with these additional summaries/recommendations: Patient seen at bedside. No acute overnight events. Patient currently drinking GoLytely jug as no source of bleeding was identified on EGD. EGD revealed esophagitis and gastritis. Hemoglobin continues to slowly downtrend and currently 7.4 today. Transfuse for hemoglobin less than 7. Hypoosmolar hyponatremia continues to improve with sodium 131 today. Nephrology following. Continue IV Rocephin for pyelonephritis. Dr. De Luna
--- NOTE | 2024-07-19 17:00 | ESPR_ITS ---
Documentation for date of: 07/19/24 Subjective Subjective Interval history: Patient evaluated Hemoglobin hematocrit 7.4 and 23.1 She is drinking GoLytely and not cleared for the colonoscopy today Additional GoLytely and the colonoscopy scheduled for tomorrow Exam Vital Signs Temp Pulse Resp BP Pulse Ox O2 Del Method O2 Flow Rate 97.2 F 81 18 156/78 H 95 Room Air 2 07/19/24 15:50 07/19/24 16:00 07/19/24 15:50 07/19/24 15:50 07/19/24 15:50 07/19/24 15:50 07/18/24 13:25 Routine Respiratory Exam Comments: Normal to auscultation Routine Abdominal Exam Comments: Soft nontender Objective Labs 07/19/24 04:49 07/19/24 04:49 Labs: Laboratory Results - last 24 hr 07/19/24 04:49 WBC 5.6 RBC 3.21 L Hgb 7.4 L Hct 23.3 L MCV 73 L MCH 23.1 L MCHC 31.8 RDW Std Deviation 41.2 Plt Count 247 Neut % (Auto) 53 Lymph % (Auto) 33 [place] % (Auto) 7 Eos % (Auto) 6 Baso % (Auto) 1 Neut # (Auto) 3.0 Lymph # (Auto) 1.8 [place] # (Auto) 0.4 Eos # (Auto) 0.3 Baso # (Auto) 0.0 Immature Gran # (Auto) 0.02 H Absolute Nucleated RBC 0.00 Immature Gran % 0 Nucleated RBC % 0 Sodium 131 L Potassium 4.4 Chloride 98 Carbon Dioxide 26.1 Anion Gap 7 BUN 23 Creatinine 1.3 Estim Creat Clear Calc 42.0 L eGFR 46 L BUN/Creatinine Ratio 18 Glucose 304 H Calculated Osmolality 277 Calcium 9.1 Corrected Calcium 9.1 Magnesium 1.8 Total Bilirubin 0.4 AST 16 ALT 13 Alkaline Phosphatase 68 Total Protein 6.2 Albumin 4.0 Globulin 2.2 L Albumin/Globulin Ratio 1.8 Impressions Impression: # Posthemorrhagic anemia with a hemoglobin hematocrit of 7.4 and 23.1 additional GoLytely prep Colonoscopy rescheduled for tomorrow ABG Interpretation ABG results: 07/15/24 22:58 ABG pH 7.40 ABG pCO2 39 ABG pO2 64 L ABG HCO3 24 ABG O2 Saturation 93 ABG Base Excess -1 Assessment & Plan A&P Narrative # Drop in hemoglobin hematocrit since admission currently at 8.0 and 24.4 Plan is Iron panel B12 folate level Reticulocyte count Stool for Hemoccult testing Fiberoptic esophagogastroduodenoscopy with possible biopsy possible therapeutic intervention under intravenous moderate sedation scheduled for tomorrow In case the EGD is negative we will consider doing a fibrotic colonoscopy prior to discharge Other medical problems include # Hyponatremia improving # Altered mental status dizziness improving # Pyelonephritis on IV antibiotics Thank you very much for the opportunity to participate in the care of this patient Time Spent With Patient Time: Total time spent is greater than 50% in coordination of care (as documented) at patient's floor/unit and/or counseling patient:
[2024-07-19] MEDS: traZODone HCL 50 MG TABLET 200 MG PO (20:33)
--- NOTE | 2024-07-19 23:40 | PD.VPROG1 ---
Telemedicine visit statement This visit was conducted with the use of phone was obtained on 07/19/24 at 2340. Documentation for date of: 07/19/24 Subjective Subjective Interval history: Patient is in MedSurg. No new symptoms reported. Virtual exam Vital Signs Temp Pulse Resp BP Pulse Ox O2 Del Method O2 Flow Rate 98.4 F 84 19 165/98 H 94 L Room Air 2 07/19/24 20:00 07/19/24 20:00 07/19/24 20:00 07/19/24 20:00 07/19/24 20:00 07/19/24 20:00 07/18/24 13:25 Objective Labs 07/19/24 04:49 07/19/24 04:49 Labs: Laboratory Results - last 24 hr 07/19/24 04:49 WBC 5.6 RBC 3.21 L Hgb 7.4 L Hct 23.3 L MCV 73 L MCH 23.1 L MCHC 31.8 RDW Std Deviation 41.2 Plt Count 247 Neut % (Auto) 53 Lymph % (Auto) 33 [place] % (Auto) 7 Eos % (Auto) 6 Baso % (Auto) 1 Neut # (Auto) 3.0 Lymph # (Auto) 1.8 [place] # (Auto) 0.4 Eos # (Auto) 0.3 Baso # (Auto) 0.0 Immature Gran # (Auto) 0.02 H Absolute Nucleated RBC 0.00 Immature Gran % 0 Nucleated RBC % 0 Sodium 131 L Potassium 4.4 Chloride 98 Carbon Dioxide 26.1 Anion Gap 7 BUN 23 Creatinine 1.3 Estim Creat Clear Calc 42.0 L eGFR 46 L BUN/Creatinine Ratio 18 Glucose 304 H Calculated Osmolality 277 Calcium 9.1 Corrected Calcium 9.1 Magnesium 1.8 Total Bilirubin 0.4 AST 16 ALT 13 Alkaline Phosphatase 68 Total Protein 6.2 Albumin 4.0 Globulin 2.2 L Albumin/Globulin Ratio 1.8 ABG Interpretation ABG results: 07/15/24 22:58 ABG pH 7.40 ABG pCO2 39 ABG pO2 64 L ABG HCO3 24 ABG O2 Saturation 93 ABG Base Excess -1 Assessment & Plan Problem List (1) Altered mental status: Status: Resolved Assessment and plan: Intermittent confusion noted, overall significant improvement noted in her mental status. No need for any other workup. Could be related to metabolic encephalopathy/hyponatremia and acute kidney injury. (2) Hand fracture, right: Status: Acute Assessment and plan: Seen by Dr. Maurer for the fracture proximal phalanx of the right fourth digit (3) Hyponatremia: Status: Acute Assessment and plan: Sodium is coming up slowly Continue with sodium tablet as recommended by nephrology avoid rapid correction.
[2024-07-20] VITALS (8 sets, daily range): BP systolic 115–192; BP diastolic 69–99; PULSE 77–96; RESP 11–18; TEMP 36.2–36.6; O2SAT 91–100
[2024-07-20] MEDS: HEPARIN SOD INJ 5000 UNIT/ML VIAL SC ×2 (05:18→14:16)
[2024-07-20] MEDS: LEVOTHYROXINE SODIUM 125 MCG TABLET PO (05:18)
[2024-07-20 06:52] LABS: Alanine Aminotransferase 15 U/L (10-49); Albumin, Serum 3.9 gm/dL (3.4-4.8); Albumin/Globulin Ratio 1.8 (1.2-2.2); Alkaline Phosphatase 65 U/L (46-116); Anion Gap 8 (7-16); Aspartate Amino Transferase 17 U/L (0-34); BUN/Creatinine Ratio 14 Ratio (12-20); Bilirubin,Total 0.4 mg/dL (0.3-1.2); Blood Urea Nitrogen 14 mg/dL (9-23); Calcium 9.4 mg/dL (8.3-10.6); Calcium (Corrected) 9.5 mg/dL (8.5-10.1); Carbon Dioxide 29.4 mMol/L (20.0-31.0); Chloride 99 mMol/L (98-107); Estimated Creatinine Clearance 54.6 mL/min (>60); Globulin 2.2 gm/dL (2.3-3.5); Glucose 103 mg/dL (74-106); Magnesium 1.6 mg/dL (1.6-2.6); Osmolality,Calculated 272 (275-295); Potassium 4.2 mMol/L (3.4-5.1); Sodium 136 mMol/L (136-145); Total Protein 6.1 gm/dL (5.7-8.2); eGFR > 60 See Note
[2024-07-20] MEDS: HYDROcodone/APAP 5/325 TABLET 1 TAB PO ×2 (08:16→21:04)
[2024-07-20] MEDS: SODIUM CHLORIDE 1 GM TABLET PO (08:16)
[2024-07-20] MEDS: BusPIRone HCL 5 MG TABLET 10 MG PO (08:16)
[2024-07-20] MEDS: cefTRIAXone/D5w 1gm IV premix 50 ML IV (08:16)
[2024-07-20] MEDS: PANTOPRAZOLE INJ 40 MG VIAL IVP (08:16)
[2024-07-20] MEDS: NYSTATIN PWD 15 GM BTL TOP ×2 (08:18→20:13)
[2024-07-20] MEDS: INSULIN LISPRO (AdmeLOG) 1 UNIT/0.01 ML UNIT 3 UNIT SC ×3 (08:21→17:31)
[2024-07-20] MEDS: INSULIN GLARGINE (Lantus) 5 UNIT/0.05 ML (PER 5 UNITS) 28 UNIT SC (08:21)
--- NOTE | 2024-07-20 09:03 | PC.SS ---
Follow up note: Waiting for neuro recommendations. Pt was suppose to have Colonoscopy yesterday. Pt will return home upon dc.
[2024-07-20 09:15] LABS: Basophils % (Auto) 1 % (0-2.5); Eosinophils # (Auto) 0.3 Thou/mm3 (0.0-0.5); Eosinophils % (Auto) 7 % (0-10); Hematocrit 24.8 % (36.0-46.0); Immature Granulocytes % (Auto) 0 % (0-0); Immature Granulocytes Auto 0.01 Thou/mm3 (0.00-0.00); Lymphocytes # (Auto) 1.6 Thou/mm3 (1.0-4.8); Lymphocytes % (Auto) 34 % (10-50); Mean Corpuscular HGB Conc 30.2 g/dl (31.0-37.0); Mean Corpuscular Hemoglobin 22.6 pg (25.0-35.0); Mean Corpuscular Volume 75 fL (80-100); Monocytes # (Auto) 0.4 Thou/mm3 (0.0-0.8); Monocytes % (Auto) 8 % (0-12); Neutrophils # (Auto) 2.4 Thou/mm3 (1.8-7.7); Neutrophils % (Auto) 51 % (37-80); Nucleated Red Blood Cell % 0 /100 WBC (0); Platelet Count 199 Thou/mm3 (140-440); RDW Standard Deviation 43.3 fL (36.4-46.3); Red Blood Count 3.32 Miln/mm3 (4.00-5.20); White Blood Count 4.7 Thou/mm3 (3.6-11.0)
--- NOTE | 2024-07-20 10:04 | PD.RESPRO ---
Documentation for date of: 07/20/24 Subjective Subjective Interval history: Ms. hung is a 63-year-old woman with past medical history of diabetes mellitus type 2, hyperlipidemia, hypothyroidism, anxiety, neuropathy and colon cancer s/p resection came to the ED due to chief complaint of vomiting, loose stools, poor oral intake and generalized weakness for 1 week associated to mild abdominal pain and nonproductive cough. she also stated that she was feeling dizzy and sustained a fall injuring her right hand twice. she denied LOC. patient denied chest pain, dysuria, melena, hematemesis. Home medications included albuterol Augmentin BuSpar vitamin D, gabapentin, [place], hydroxyzine, Janumet, levothyroxine, meloxicam, naproxen, prednisone, simvastatin, salt tabs, tizanidine, trazodone Of note patient was noted to have on and off episodes of hyponatremia needing salt tablets. In the emergency department sodium 119, Hgb 9.5 HCT 28.6, ABGs unremarkable 116, creatinine 1.7, glucose 380, osmolality 263, beta-hydroxybutyrate negative, influenza, COVID and RSV negative Imaging: Chest x-ray was negative for acute disease, hand x-ray showed Acute fractures proximal phalanx fourth digit, CT head was negative, CT abdomen pelvis showed Perinephric stranding with mild to moderate bilateral renal parenchymal scar, formation, no hydronephrosis or ureteral calculi, EKG sinus rhythm no acute ST changes or T wave inversions per my interpretation Normal saline was started and patient admitted for symptomatic hyponatremia. Renal consultation requested for hyponatremia. Patient currently seen in the emergency department. She seems to be more alert and awake although nurse stated that on and off she is having episodes of agitation. When I saw her she is completely alert and awake. However her sodium tessie from 119-126 and I started her on D5W to avoid overcorrection 07/18/2024 patient currently seen in medical floor. She is more alert and awake. Sodium 128. Will discontinue D5W. If serum sodium greater than 128 tomorrow can be discharged. Spoke to primary team. Noted hemoglobin low-GI consultation requested 07/19/2024 patient seen on medical floor, sodium 136, patient currently on GoLytely prep, scheduled for GI intervention, patient's sodium stable, renal function is stable. Patient is stable from nephrology standpoint, we will sign off on the case. Exam Vital Signs Temp Pulse Resp BP Pulse Ox O2 Del Method O2 Flow Rate 97.3 F 85 15 151/84 H 91 L Room Air 2 07/20/24 08:00 07/20/24 08:00 07/20/24 08:00 07/20/24 08:00 07/20/24 08:00 07/20/24 08:00 07/20/24 08:00 Narrative Exam General: AAOx2, not oriented to time, NAD, HEENT: Dry mucous membranes, poor dentition, conjunctiva clear, EOMI, PERRLA, Cardiovascular: S1, S2, radial pulses +2 bilat, RRR Pulmonary: CTAB bilat no cough, no wheezing GI: No tenderness to light or deep palpitation, no guarding, rigidity, rebound tenderness or distension Extremities: No presence of trace or pitting edema in lower extremities bilaterally, dorsalis pedis pulses +2 bilaterally Neuro: AAOx2 not alert to time/date, no focal motor or sensory deficits in the UE or LE bilat Psych: Good behavior, able to cooperate Objective Labs 07/22/24 04:35 07/22/24 04:35 Labs: Laboratory Results - last 24 hr 07/19/24 07/20/24 04:49 04:49 Sodium 136 Potassium 4.2 Chloride 99 Carbon Dioxide 29.4 Anion Gap 8 BUN 14 Creatinine 1.0 Estim Creat Clear Calc 54.6 L eGFR > 60 BUN/Creatinine Ratio 14 Glucose 103 D Calculated Osmolality 272 L Calcium 9.4 Corrected Calcium 9.5 Magnesium 1.8 1.6 Total Bilirubin 0.4 AST 17 ALT 15 Alkaline Phosphatase 65 Total Protein 6.1 Albumin 3.9 Globulin 2.2 L Albumin/Globulin Ratio 1.8 ABG Interpretation ABG results: 07/15/24 22:58 ABG pH 7.40 ABG pCO2 39 ABG pO2 64 L ABG HCO3 24 ABG O2 Saturation 93 ABG Base Excess -1 Quality Measures Quality Measures none Assessment & Plan Assessment Current Active Medications: Generic Name Dose Route Start Last Admin Trade Name Freq PRN Reason Stop Dose Admin Acetaminophen 650 mg 07/19/24 09:57 Acetaminophen 325 Mg Tablet PO 08/14/24 21:41 Q4HR PRN Pain Scale 1-3 fever>100.4 Hydrocodone Bitart/Acetaminophen 1 tab 07/18/24 08:10 12/27/24 08:16 Hydrocodone/Apap 5/325 Tablet PO 07/23/24 08:06 1 tab Q8HR PRN Administration PAIN SCALE 4-10(Mod-Sev Buspirone HCl 10 mg 07/16/24 09:30 07/20/24 08:16 Buspirone Hcl 5 Mg Tablet PO 08/15/24 09:29 10 mg QDAY ABRAN Administration Dextrose 25 ml 07/15/24 23:48 Dextrose 50%-Water Inj 50 Ml Syringe IV 08/14/24 23:47 Q15MIN PRN BG 50-70 responsive npo pt Dextrose 50 ml 07/15/24 23:48 Dextrose 50%-Water Inj 50 Ml Syringe IV 08/14/24 23:47 Q15MIN PRN BG <50 OR BG <70 & pt unresponsive Glucagon 1 mg 07/15/24 23:48 Glucagon Inj 1 Mg Vial IM Q15MIN PRN BG <70, and no IV access Heparin Sodium (Porcine) 5,000 unit 07/15/24 22:00 07/20/24 05:18 Heparin Sod Inj 5000 Unit/Ml Vial SC 07/29/24 21:59 5,000 unit Q8HR ABRAN Administration Hydralazine HCl 10 mg 07/16/24 04:46 Hydralazine Inj 20 Mg/Ml Vial IV 08/15/24 04:45 Q6HR PRN SBP > 170 Ceftriaxone Sodium/Dextrose 50 mls @ 100 mls/hr 07/18/24 09:00 07/20/24 08:16 Rocephin/D5w 1gm Iv Premix IV 07/25/24 08:59 100 mls/hr QDAY ABRAN Administration Insulin Glargine 28 unit 07/19/24 09:00 07/20/24 08:21 Insulin Glargine (Lantus) 5 Unit/0.05 Ml (Per 5 Units) SC 08/18/24 08:59 28 unit QDAY ABRAN Administration Insulin Human Lispro 0 unit 07/18/24 16:31 07/20/24 07:46 Insulin Lispro (Admelog) 1 Unit/0.01 Ml Unit SC 08/17/24 08:14 Not Given [facility] Protocol Insulin Human Lispro 3 unit 07/19/24 08:00 07/20/24 08:21 Insulin Lispro (Admelog) 1 Unit/0.01 Ml Unit SC 08/18/24 07:59 3 unit TIDWM ABRAN Administration Levothyroxine Sodium 125 mcg 07/19/24 06:00 07/20/24 05:18 Levothyroxine Sodium 125 Mcg Tablet PO 08/15/24 05:59 125 mcg ACBR ABRAN Administration Nystatin 0 gm 07/16/24 21:00 07/20/24 08:18 Nystatin Pwd 15 Gm Btl TOP 08/15/24 20:59 1 applicatio BID ABRAN Administration Ondansetron HCl 4 mg 07/15/24 21:56 Ondansetron Inj 2 Mg/Ml Inj 2 Ml IV 08/14/24 21:55 Q6HR PRN NAUSEA OR VOMITING Pantoprazole Sodium 40 mg 07/16/24 09:00 07/20/24 08:16 Pantoprazole Inj 40 Mg Vial IVP 08/15/24 08:59 40 mg QDAY ABRAN Administration Sodium Chloride 1 gm 07/18/24 13:45 07/20/24 08:16 Sodium Chloride 1 Gm Tablet PO 08/17/24 13:44 1 gm QDAY ABRAN Administration Trazodone HCl 200 mg 07/16/24 21:00 07/19/24 20:33 Trazodone Hcl 50 Mg Tablet PO 08/15/24 20:59 200 mg HS ABRAN Administration Plan Summary: Ms. Hung is a 63-year-old woman with past medical history of diabetes mellitus type 2, hyperlipidemia, hypothyroidism and colon cancer s/p resection came to the ED due to chief complaint of vomiting, poor oral intake and generalized weakness for 1 week associated to mild abdominal pain and nonproductive cough. she also stated that she was feeling dizzy and sustained a fall injuring her right hand twice she denied LOC. patient denied chest pain, dysuria, melena, hematemesis or any other associated symptoms different than the mentioned above. ED course: Initial vitals: Blood pressure 135/83 HR 93 RR 18 afebrile SpO2 98% on room air Pertinent labs: Hgb 9.5 HCT 28.6, ABGs unremarkable 116, creatinine 1.7, glucose 208, osmolality 263, beta-hydroxybutyrate negative, influenza, COVID and RSV negative Imaging: Chest x-ray was negative for acute disease, hand x-ray showed Acute fractures proximal phalanx fourth digit, CT head was negative, CT abdomen pelvis showed Perinephric stranding with mild to moderate bilateral renal parenchymal scar, formation, no hydronephrosis or ureteral calculi, EKG sinus rhythm no acute ST changes or T wave inversions per my interpretation. At the ED the patient received:1 L bolus NS, The patient will be admitted for further treatment and management of acute symptomatic hypoosmolar hyponatremia and pyelonephritis. #Acute encephalopathy, resolved #Hypoosmolar hyponatremia, improved, secondary to, resolved #Symptomatic hyponatremia, resolved #Intractable nausea and vomiting, resolved #Electrolyte imbalances Most likely secondary to dehydration, GI losses and hyperglycemia. On admission, Na+ 116 glucose 380 corrected sodium for hyperglycemia 121. Sodium 136 today, Patient is back to her baseline Plan: -Continue salt tabs 1 g qday -Monitor sodium level daily -Patient sodium level stable. ~~~Nephrology will sign off on the case~~~ #TRISTAN, improved Most likely prerenal in the setting of severe dehydration and poor oral intake Creatinine 1.3 today (baseline creatinine 1.0) Plan: - Strict ins and outs. - Avoid nephrotoxic drugs. - Renally dose medications. - Follow-up CMP #? GI bleed #Iron deficiency anemia #Acute on chronic anemia #Pyelonephritis, improving #Right hand injury. #Acute fracture of proximal phalanx of fourth digit. #Hx of colon cancer s/p bowel resection #Diabetes mellitus type 2. #Hx of hypothyroidism. #Intertrigo. Case discussed with Attending Dr. Salomon. Selvin Sanchez PGY1 Attending Provider Attestation/Addendum Patient seen and examined with resident physician Dr. Sanchez. Note reviewed, agree with findings and recommendations. Sodium 138. Renal clark no further recommendations. Will sign off. Thank you for the consult.
[2024-07-20 10:27] LABS: Hemoglobin 7.5 g/dL (12.0-16.0)
--- NOTE | 2024-07-20 10:30 | CHAP ---
Patient expressed gratitude for prayer before their procedure.
--- NOTE | 2024-07-20 11:18 | ESCONSULT_ITS ---
RE: OK PETERS : 1960 DATE OF CONSULTATION: 07/19/2024 Thank you, , for asking me to consult on the patient whom I saw on 07/19/2024. HISTORY OF PRESENT ILLNESS: I was consulted for fracture of the proximal phalanx of the right hand of the fourth digit. The patient injured her right hand. The patient has got a splint put on. It is swollen and range of motion is painful. PAST MEDICAL HISTORY: The patient has hypercholesterolemia. There is no history of COPD. The patient has a history of CVA. PAST SURGICAL HISTORY: Bowel surgery and arthroscopy. PHYSICAL EXAMINATION: GENERAL: Fully alert and oriented lady. VITAL SIGNS: Pulse is 88 per minute. Blood pressure 140/76. NECK: Soft, supple. No mass felt. Trachea is centrally placed. CARDIOVASCULAR SYSTEM: First and second heart sound normal. No murmur heard. RESPIRATORY SYSTEM: Bilateral vesicular breath sounds. CHEST: Clear. ABDOMEN: Soft. No mass felt. Bowel sounds present. EXTREMITIES: Right hand examination revealed swelling of the four digits. Range of motion is restricted. NEUROLOGIC: Neurovascularly, it is intact. DIAGNOSTIC DATA: X-ray revealed comminuted butterfly fragment of the proximal phalanx of the right fourth digit. I talked to the patient and explained that in my opinion, she does not need any surgical intervention. However, if she does want, I may have to recommend her to a hand surgeon. The patient expressed the wish that she does not want any surgical intervention. There is incidental finding of the plate on the fifth metacarpal bone and the patient stated that it was done when she was in teenage. The patient may be discharged home if medically fit. I will be happy to see her in my office for the fracture of the proximal phalanx for followup. DT: 10:07:51 TT: 11:05:00 Ref: [id number] - TID: [id number]
[2024-07-20] MEDS: INSULIN LISPRO (AdmeLOG) 1 UNIT/0.01 ML UNIT SC ×2 (11:28→20:14)
--- NOTE | 2024-07-20 12:49 | ESPR_ITS ---
<Statement entered by Riccardo Hagan MD - 07/20/24 16:11> Patient was seen and examined at bedside. No overnight incidents, vital signs within normal limits. Today patient denied any new symptoms. #Anemia, patient was supposed to have colonoscopy yesterday however patient did not clear. For that reason Dr. Plascencia rescheduled the patient for colonoscopy for today. Her hemoglobin today is stable at 7.5. Patient denied any active bleeding #Acute encephalopathy, neurologist Dr Rivers evaluated the patient she noticed that the patient has on and off acute encephalopathy she believes that most likely related to her metabolic abnormalities such as hyponatremia, TRISTAN. Did not recommend any urological intervention at this time. On evaluation today patient was oriented x 2 at her baseline. Will recommend outpatient follow-up with a neurologist. #Right fourth proximal phalanx fracture, Dr. Araujo decided no surgical intervention at this time. He recommended to ask the patient to follow-up in outpatient settings. At this time she is on splint. It was checked and adjusted to be fixed around her right foot. With mobilization. And evaluated today no discoloration, able to move her distal phalanx and no numbness or tingling. - Patient's plan and care discussed with my attending, Dr. Annamarie Hagan MD Internal Medicine PGY-2 Documentation for date of: 07/20/24 Subjective Subjective Interval history: Patient examined at bedside today. No acute overnight events. Says that she has been drinking the GoLytely, and is ready to have the colonoscopy and wondering when she is going to leave. No other complaints at this time Exam Vital Signs Temp Pulse Resp BP Pulse Ox O2 Del Method O2 Flow Rate 97.1 F 77 18 176/94 H 92 L Room Air 2 07/20/24 12:00 07/20/24 12:00 07/20/24 12:00 07/20/24 12:00 07/20/24 12:00 07/20/24 12:00 07/20/24 12:00 Narrative Exam General: AAOx2, not oriented to time, NAD, HEENT: Dry mucous membranes, poor dentition, conjunctiva clear, EOMI, PERRLA, Cardiovascular: S1, S2, radial pulses +2 bilat, RRR Pulmonary: CTAB bilat no cough, no wheezing GI: No tenderness to light or deep palpitation, no guarding, rigidity, rebound tenderness or distension Extremities: No presence of trace or pitting edema in lower extremities bilaterally, dorsalis pedis pulses +2 bilaterally Neuro: AAOx2 not alert to time/date, no focal motor or sensory deficits in the UE or LE bilat Psych: Good behavior, able to cooperate Objective Labs 07/21/24 04:57 07/21/24 04:57 Labs: Laboratory Results - last 24 hr 07/20/24 07/20/24 04:49 08:46 WBC 4.7 RBC 3.32 L Hgb 7.5 L Hct 24.8 L MCV 75 L MCH 22.6 L MCHC 30.2 L RDW Std Deviation 43.3 Plt Count 199 D Neut % (Auto) 51 Lymph % (Auto) 34 [place] % (Auto) 8 Eos % (Auto) 7 Baso % (Auto) 1 Neut # (Auto) 2.4 Lymph # (Auto) 1.6 [place] # (Auto) 0.4 Eos # (Auto) 0.3 Baso # (Auto) 0.0 Immature Gran # (Auto) 0.01 H Absolute Nucleated RBC 0.00 Immature Gran % 0 Nucleated RBC % 0 Sodium 136 Potassium 4.2 Chloride 99 Carbon Dioxide 29.4 Anion Gap 8 BUN 14 Creatinine 1.0 Estim Creat Clear Calc 54.6 L eGFR > 60 BUN/Creatinine Ratio 14 Glucose 103 D Calculated Osmolality 272 L Calcium 9.4 Corrected Calcium 9.5 Magnesium 1.6 Total Bilirubin 0.4 AST 17 ALT 15 Alkaline Phosphatase 65 Total Protein 6.1 Albumin 3.9 Globulin 2.2 L Albumin/Globulin Ratio 1.8 ABG Interpretation ABG results: 07/15/24 22:58 ABG pH 7.40 ABG pCO2 39 ABG pO2 64 L ABG HCO3 24 ABG O2 Saturation 93 ABG Base Excess -1 Quality Measures Quality Measures none Assessment & Plan Assessment Current Active Medications: Generic Name Dose Route Start Last Admin Trade Name Freq PRN Reason Stop Dose Admin Acetaminophen 650 mg 07/19/24 09:57 Acetaminophen 325 Mg Tablet PO 08/14/24 21:41 Q4HR PRN Pain Scale 1-3 fever>100.4 Hydrocodone Bitart/Acetaminophen 1 tab 07/18/24 08:10 07/20/24 08:16 Hydrocodone/Apap 5/325 Tablet PO 07/23/24 08:06 1 tab Q8HR PRN Administration PAIN SCALE 4-10(Mod-Sev Buspirone HCl 10 mg 07/16/24 09:30 07/20/24 08:16 Buspirone Hcl 5 Mg Tablet PO 08/15/24 09:29 10 mg QDAY ABRAN Administration Dextrose 25 ml 07/15/24 23:48 Dextrose 50%-Water Inj 50 Ml Syringe IV 08/14/24 23:47 Q15MIN PRN BG 50-70 responsive npo pt Dextrose 50 ml 07/15/24 23:48 Dextrose 50%-Water Inj 50 Ml Syringe IV 08/14/24 23:47 Q15MIN PRN BG <50 OR BG <70 & pt unresponsive Glucagon 1 mg 07/15/24 23:48 Glucagon Inj 1 Mg Vial IM Q15MIN PRN BG <70, and no IV access Heparin Sodium (Porcine) 5,000 unit 07/15/24 22:00 07/20/24 05:18 Heparin Sod Inj 5000 Unit/Ml Vial SC 07/29/24 21:59 5,000 unit Q8HR ABRAN Administration Hydralazine HCl 10 mg 07/16/24 04:46 Hydralazine Inj 20 Mg/Ml Vial IV 08/15/24 04:45 Q6HR PRN SBP > 170 Ceftriaxone Sodium/Dextrose 50 mls @ 100 mls/hr 07/18/24 09:00 07/20/24 08:16 Rocephin/D5w 1gm Iv Premix IV 07/25/24 08:59 100 mls/hr QDAY ABRAN Administration Insulin Glargine 28 unit 07/19/24 09:00 07/20/24 08:21 Insulin Glargine (Lantus) 5 Unit/0.05 Ml (Per 5 Units) SC 08/18/24 08:59 28 unit QDAY ABRAN Administration Insulin Human Lispro 0 unit 07/18/24 16:31 07/20/24 11:28 Insulin Lispro (Admelog) 1 Unit/0.01 Ml Unit SC 08/17/24 08:14 8 unit ACHS ABRAN Administration Protocol Insulin Human Lispro 3 unit 07/19/24 08:00 07/20/24 11:30 Insulin Lispro (Admelog) 1 Unit/0.01 Ml Unit SC 08/18/24 07:59 3 unit TIDWM ABRAN Administration Levothyroxine Sodium 125 mcg 07/19/24 06:00 07/20/24 05:18 Levothyroxine Sodium 125 Mcg Tablet PO 08/15/24 05:59 125 mcg ACBR ABRAN Administration Nystatin 0 gm 07/16/24 21:00 07/20/24 08:18 Nystatin Pwd 15 Gm Btl TOP 08/15/24 20:59 1 applicatio BID ABRAN Administration Ondansetron HCl 4 mg 07/15/24 21:56 Ondansetron Inj 2 Mg/Ml Inj 2 Ml IV 08/14/24 21:55 Q6HR PRN NAUSEA OR VOMITING Pantoprazole Sodium 40 mg 07/16/24 09:00 07/20/24 08:16 Pantoprazole Inj 40 Mg Vial IVP 08/15/24 08:59 40 mg QDAY ABRAN Administration Sodium Chloride 1 gm 07/18/24 13:45 07/20/24 08:16 Sodium Chloride 1 Gm Tablet PO 08/17/24 13:44 1 gm QDAY ABRAN Administration Trazodone HCl 200 mg 07/16/24 21:00 07/19/24 20:33 Trazodone Hcl 50 Mg Tablet PO 08/15/24 20:59 200 mg HS ABRAN Administration Plan Assessment 63-year-old woman with past medical history of diabetes mellitus type 2, hyperlipidemia, hypothyroidism and colon cancer s/p resection came to the ED due to chief complaint of vomiting, poor oral intake and generalized weakness for 1 week associated to mild abdominal pain and nonproductive cough. she also stated that she was feeling dizzy and sustained a fall injuring her right hand twice she denied LOC. patient denied chest pain, dysuria, melena, hematemesis or any other associated symptoms different than the mentioned above. ED course: Initial vitals: Blood pressure 135/83 HR 93 RR 18 afebrile SpO2 98% on room air Pertinent labs: Hgb 9.5 HCT 28.6, ABGs unremarkable 116, creatinine 1.7, glucose 208, osmolality 263, beta-hydroxybutyrate negative, influenza, COVID and RSV negative Imaging: Chest x-ray was negative for acute disease, hand x-ray showed Acute fractures proximal phalanx fourth digit, CT head was negative, CT abdomen pelvis showed Perinephric stranding with mild to moderate bilateral renal parenchymal scar, formation, no hydronephrosis or ureteral calculi, EKG sinus rhythm no acute ST changes or T wave inversions per my interpretation. At the ED the patient received:1 L bolus NS, The patient will be admitted for further treatment and management of acute symptomatic hypoosmolar hyponatremia and pyelonephritis. #Acute encephalopathy, resolved #Hypoosmolar hyponatremia, improved, secondary to, resolved #Symptomatic hyponatremia #Intractable nausea and vomiting, resolved #Electrolyte imbalances Most likely secondary to dehydration, GI losses and hyperglycemia. Nephrology was consulted we greatly appreciate recommendations. Patient is back to her baseline, per neurology Sodium 136 today, will consider discontinuing upon d/c Plan: -Continue salt tabs 1 g qday ?Trend CMP ?Zofran #? GI bleed #Iron deficiency anemia #Acute on chronic anemia Possibly secondary to CKD vs anemia of chronic disease Pt to get EGD today Ferritin and TIBC normal, Iron is ~16 (low) EGD shows esophagitis gastritis Currently being prepped for colonoscopy, will have today by Dr. Plascencia MCV microcytic in nature Hgb today 7.5, minimal change from yesterday (7.4) Plan: ?Follow-up CBC. ?Transfuse if hemoglobin less than 7. ?Follow up colonoscopy results #Pyelonephritis, improving No leukocytosis. UA no WBCs, RBCs 4, negative for bacteria otherwise. CT abdomen pelvis showed Perinephric stranding with mild to moderate bilateral renal parenchymal scar, formation, no hydronephrosis or ureteral calculi. Urine culture shows pansensitive Klebsiella, will down titrate abx Plan: ? IV Rocephin 1 g daily. ? Follow-up CBC and CMP. #Right hand injury. #Acute fracture of proximal phalanx of fourth digit. Secondary to fall, hand x-ray showed Acute fractures proximal phalanx fourth digit. Placed splint Pt does not want surgical intervention, Ortho recommends continue splint and pt can follow up with him, Dr. Maurer, outpatient Plan: ? Ortho on consult, appreciate recs ? [place] every 6 hours as needed for pain. ? IV morphine 1 mg every 4 hours. #TRISTAN, resolved Plan: - Strict ins and outs. - Avoid nephrotoxic drugs. - Renally dose medications. - Follow-up CMP #Hx of colon cancer s/p bowel resection Patient does not get any treatment currently, in remission at this time #Diabetes mellitus type 2. On metformin 500 mg BID at home, remote history of insulin treatment. HgbA1C 9.8%. Sugar 255, will adjust for lantus and short acting after pt is not NPO Plan: ? Accu-Cheks. ? Sliding scale insulin. ? Hypoglycemia protocol in place. #Hx of hypothyroidism. #Low TSH TSH 0.09; Free T4 1.32 Could be reactive Plan: ?Continue home levothyroxine 125 mcg daily. #Intertrigo. Patient reports rash between her breast which is very itchy, consistent with hilton infection. Plan: ?Nystatin powder BID. #Health Maintenance Disposition: MedSurg DVT prophylaxis: Heparin GI prophylaxis: Protonix Diet: NPO CODE STATUS: DNR Patient seen and care discussed with my senior resident, Dr. Hagan, and my attending physician, Dr. Annamarie John, PGY-1 Attending Provider Attestation/Addendum I have examined the patient, reviewed labs and imaging findings, discussed the case with the resident(s), and reviewed entered orders. I agree with the plan of care as outlined in this note, with these additional summaries/recommendations: Patient seen at bedside. No acute overnight events. Patient currently drinking GoLytely jug as no source of bleeding was identified on EGD. EGD revealed esophagitis and gastritis. Hemoglobin continues to slowly downtrend and currently 7.5 today. Transfuse for hemoglobin less than 7. Hypoosmolar hyponatremia now resolved with sodium 136 today. Continue 1g NaCl QD and nephrology signing off. Patient evaluated by orthopedics for proximal phalanx fracture of right fourth digit and patient may follow-up outpatient with orthopedics if desired. Repeat hematology and chemistry panel in AM. Dr. De Luna
[2024-07-20] MEDS: NA SU/NAHCO3/KC/PEG (Golytely) 4,000 ML BTL 4000 ML PO (17:30)
--- NOTE | 2024-07-20 18:18 | PD.IMPROG ---
Documentation for date of: 07/20/24 Subjective Subjective Interval history: Patient evaluated GoLytely prep in progress she is not clear for colonoscopy today Exam Vital Signs Temp Pulse Resp BP Pulse Ox O2 Del Method O2 Flow Rate 97.8 F 96 18 184/86 H 98 Room Air 2 07/20/24 16:00 07/20/24 16:00 07/20/24 16:00 07/20/24 16:00 07/20/24 16:00 07/20/24 16:00 07/20/24 12:00 Objective Labs 07/20/24 08:46 07/20/24 04:49 Labs: Laboratory Results - last 24 hr 07/20/24 07/20/24 04:49 08:46 WBC 4.7 RBC 3.32 L Hgb 7.5 L Hct 24.8 L MCV 75 L MCH 22.6 L MCHC 30.2 L RDW Std Deviation 43.3 Plt Count 199 D Neut % (Auto) 51 Lymph % (Auto) 34 [place] % (Auto) 8 Eos % (Auto) 7 Baso % (Auto) 1 Neut # (Auto) 2.4 Lymph # (Auto) 1.6 [place] # (Auto) 0.4 Eos # (Auto) 0.3 Baso # (Auto) 0.0 Immature Gran # (Auto) 0.01 H Absolute Nucleated RBC 0.00 Immature Gran % 0 Nucleated RBC % 0 Sodium 136 Potassium 4.2 Chloride 99 Carbon Dioxide 29.4 Anion Gap 8 BUN 14 Creatinine 1.0 Estim Creat Clear Calc 54.6 L eGFR > 60 BUN/Creatinine Ratio 14 Glucose 103 D Calculated Osmolality 272 L Calcium 9.4 Corrected Calcium 9.5 Magnesium 1.6 Total Bilirubin 0.4 AST 17 ALT 15 Alkaline Phosphatase 65 Total Protein 6.1 Albumin 3.9 Globulin 2.2 L Albumin/Globulin Ratio 1.8 Impressions Impression: # Posthemorrhagic anemia Continue GoLytely prep Hopefully she will be cleared by tomorrow morning and colonoscopy rescheduled for tomorrow ABG Interpretation ABG results: 07/15/24 22:58 ABG pH 7.40 ABG pCO2 39 ABG pO2 64 L ABG HCO3 24 ABG O2 Saturation 93 ABG Base Excess -1 Assessment & Plan A&P Narrative # Drop in hemoglobin hematocrit since admission currently at 8.0 and 24.4 Plan is Iron panel B12 folate level Reticulocyte count Stool for Hemoccult testing Fiberoptic esophagogastroduodenoscopy with possible biopsy possible therapeutic intervention under intravenous moderate sedation scheduled for tomorrow In case the EGD is negative we will consider doing a fibrotic colonoscopy prior to discharge Other medical problems include # Hyponatremia improving # Altered mental status dizziness improving # Pyelonephritis on IV antibiotics Thank you very much for the opportunity to participate in the care of this patient Time Spent With Patient Time: Total time spent is greater than 50% in coordination of care (as documented) at patient's floor/unit and/or counseling patient:
--- NOTE | 2024-07-20 18:44 | ESPR_ITS ---
Documentation for date of: 07/20/24 Subjective Subjective Interval history: No overnight events, acute encephalopathy resolved, able to abulate with walker. Exam Vital Signs Temp Pulse Resp BP Pulse Ox O2 Del Method O2 Flow Rate 97.8 F 96 18 184/86 H 98 Room Air 2 07/20/24 16:00 07/20/24 16:00 07/20/24 16:00 07/20/24 16:00 07/20/24 16:00 07/20/24 16:00 07/20/24 12:00 Narrative Exam GEN: AOx2, able to speak full sentences HEENT: NC/AC, oral mucosa moist, neck supple CVS: RRR, S1-S2 present, no murmurs appreciated RESP: CTAB GI: soft,non distended, non tender, NBS MSK: Right fourth finger splinted, no discoloration, able to move distal phalanx. able to move all 4 limbs, no lower extremity edema SKIN: warm and dry [facility]: CN II-XII and Sensation grossly intact. Objective Labs 07/21/24 04:57 07/21/24 04:57 Labs: Laboratory Results - last 24 hr 07/20/24 07/20/24 04:49 08:46 WBC 4.7 RBC 3.32 L Hgb 7.5 L Hct 24.8 L MCV 75 L MCH 22.6 L MCHC 30.2 L RDW Std Deviation 43.3 Plt Count 199 D Neut % (Auto) 51 Lymph % (Auto) 34 [place] % (Auto) 8 Eos % (Auto) 7 Baso % (Auto) 1 Neut # (Auto) 2.4 Lymph # (Auto) 1.6 [place] # (Auto) 0.4 Eos # (Auto) 0.3 Baso # (Auto) 0.0 Immature Gran # (Auto) 0.01 H Absolute Nucleated RBC 0.00 Immature Gran % 0 Nucleated RBC % 0 Sodium 136 Potassium 4.2 Chloride 99 Carbon Dioxide 29.4 Anion Gap 8 BUN 14 Creatinine 1.0 Estim Creat Clear Calc 54.6 L eGFR > 60 BUN/Creatinine Ratio 14 Glucose 103 D Calculated Osmolality 272 L Calcium 9.4 Corrected Calcium 9.5 Magnesium 1.6 Total Bilirubin 0.4 AST 17 ALT 15 Alkaline Phosphatase 65 Total Protein 6.1 Albumin 3.9 Globulin 2.2 L Albumin/Globulin Ratio 1.8 ABG Interpretation ABG results: 07/15/24 22:58 ABG pH 7.40 ABG pCO2 39 ABG pO2 64 L ABG HCO3 24 ABG O2 Saturation 93 ABG Base Excess -1 Quality Measures Quality Measures none Assessment & Plan Assessment Current Active Medications: Generic Name Dose Route Start Last Admin Trade Name Namrata PRN Reason Stop Dose Admin Acetaminophen 650 mg 07/19/24 09:57 Acetaminophen 325 Mg Tablet PO 08/14/24 21:41 Q4HR PRN Pain Scale 1-3 fever>100.4 Hydrocodone Bitart/Acetaminophen 1 tab 07/18/24 08:10 07/20/24 08:16 Hydrocodone/Apap 5/325 Tablet PO 07/23/24 08:06 1 tab Q8HR PRN Administration PAIN SCALE 4-10(Mod-Sev Buspirone HCl 10 mg 07/16/24 09:30 07/20/24 08:16 Buspirone Hcl 5 Mg Tablet PO 08/15/24 09:29 10 mg QDAY ABRAN Administration Dextrose 25 ml 07/15/24 23:48 Dextrose 50%-Water Inj 50 Ml Syringe IV 08/14/24 23:47 Q15MIN PRN BG 50-70 responsive npo pt Dextrose 50 ml 07/15/24 23:48 Dextrose 50%-Water Inj 50 Ml Syringe IV 08/14/24 23:47 Q15MIN PRN BG <50 OR BG <70 & pt unresponsive Glucagon 1 mg 07/15/24 23:48 Glucagon Inj 1 Mg Vial IM Q15MIN PRN BG <70, and no IV access Heparin Sodium (Porcine) 5,000 unit 07/15/24 22:00 07/20/24 14:16 Heparin Sod Inj 5000 Unit/Ml Vial SC 07/29/24 21:59 5,000 unit Q8HR ABRAN Administration Hydralazine HCl 10 mg 07/16/24 04:46 Hydralazine Inj 20 Mg/Ml Vial IV 08/15/24 04:45 Q6HR PRN SBP > 170 Ceftriaxone Sodium/Dextrose 50 mls @ 100 mls/hr 07/18/24 09:00 07/20/24 08:16 Rocephin/D5w 1gm Iv Premix IV 07/25/24 08:59 100 mls/hr QDAY ABRAN Administration Insulin Glargine 28 unit 07/19/24 09:00 07/20/24 08:21 Insulin Glargine (Lantus) 5 Unit/0.05 Ml (Per 5 Units) SC 08/18/24 08:59 28 unit QDAY ABRAN Administration Insulin Human Lispro 0 unit 07/18/24 16:31 07/20/24 17:23 Insulin Lispro (Admelog) 1 Unit/0.01 Ml Unit SC 08/17/24 08:14 Not Given ACHS ABRAN Protocol Insulin Human Lispro 3 unit 07/19/24 08:00 07/20/24 17:31 Insulin Lispro (Admelog) 1 Unit/0.01 Ml Unit SC 08/18/24 07:59 3 unit TIDWM ABRAN Administration Levothyroxine Sodium 125 mcg 07/19/24 06:00 07/20/24 05:18 Levothyroxine Sodium 125 Mcg Tablet PO 08/15/24 05:59 125 mcg ACBR ABRAN Administration Nystatin 0 gm 07/16/24 21:00 07/20/24 08:18 Nystatin Pwd 15 Gm Btl TOP 08/15/24 20:59 1 applicatio BID ABRAN Administration Ondansetron HCl 4 mg 07/15/24 21:56 Ondansetron Inj 2 Mg/Ml Inj 2 Ml IV 08/14/24 21:55 Q6HR PRN NAUSEA OR VOMITING Pantoprazole Sodium 40 mg 07/16/24 09:00 07/20/24 08:16 Pantoprazole Inj 40 Mg Vial IVP 08/15/24 08:59 40 mg QDAY ABRAN Administration Sodium Chloride 1 gm 07/18/24 13:45 07/20/24 08:16 Sodium Chloride 1 Gm Tablet PO 08/17/24 13:44 1 gm QDAY ABRAN Administration Trazodone HCl 200 mg 07/16/24 21:00 07/19/24 20:33 Trazodone Hcl 50 Mg Tablet PO 08/15/24 20:59 200 mg HS ABRAN Administration Plan #Acute encephalopathy, resolved -[place] in the setting of hyponatremia -Resolved -Able to ambulatw with walker, alert and oriented -No further workup recommended at this time Patient's care discussed with attending physician, Dr Tita Shields MD PGY3 Attending Provider Attestation/Addendum Patient was seen and examined at the bedside, agreed with resident's findings, assessment and mgt.
[2024-07-20] MEDS: hydrALAZINE INJ 20 MG/ML VIAL 10 MG IV (20:13)
[2024-07-20] MEDS: traZODone HCL 50 MG TABLET 200 MG PO (20:14)
[2024-07-21] VITALS (12 sets, daily range): BP systolic 122–188; BP diastolic 61–102; PULSE 80–94; RESP 17–18; TEMP 36.2–36.8; O2SAT 94–99
[2024-07-21] MEDS: ACETAMINOPHEN 325 MG TABLET 650 MG PO ×2 (00:04→12:15)
[2024-07-21] MEDS: LEVOTHYROXINE SODIUM 125 MCG TABLET PO (05:35)
[2024-07-21] MEDS: HYDROcodone/APAP 5/325 TABLET 1 TAB PO (05:35)
[2024-07-21] MEDS: HEPARIN SOD INJ 5000 UNIT/ML VIAL SC ×3 (05:35→21:34)
[2024-07-21 05:52] LABS: Basophils % (Auto) 1 % (0-2.5); Eosinophils # (Auto) 0.3 Thou/mm3 (0.0-0.5); Eosinophils % (Auto) 5 % (0-10); Hematocrit 24.1 % (36.0-46.0); Immature Granulocytes % (Auto) 0 % (0-0); Immature Granulocytes Auto 0.02 Thou/mm3 (0.00-0.00); Lymphocytes # (Auto) 1.9 Thou/mm3 (1.0-4.8); Lymphocytes % (Auto) 40 % (10-50); Mean Corpuscular HGB Conc 31.1 g/dl (31.0-37.0); Mean Corpuscular Hemoglobin 22.7 pg (25.0-35.0); Mean Corpuscular Volume 73 fL (80-100); Monocytes # (Auto) 0.4 Thou/mm3 (0.0-0.8); Monocytes % (Auto) 9 % (0-12); Neutrophils # (Auto) 2.2 Thou/mm3 (1.8-7.7); Neutrophils % (Auto) 45 % (37-80); Nucleated Red Blood Cell % 0 /100 WBC (0); Platelet Count 213 Thou/mm3 (140-440); RDW Standard Deviation 42.1 fL (36.4-46.3); White Blood Count 4.8 Thou/mm3 (3.6-11.0)
[2024-07-21 05:56] LABS: Hemoglobin 7.5 g/dL (12.0-16.0)
[2024-07-21 06:09] LABS: Alanine Aminotransferase 14 U/L (10-49); Albumin, Serum 3.7 gm/dL (3.4-4.8); Albumin/Globulin Ratio 1.7 (1.2-2.2); Alkaline Phosphatase 65 U/L (46-116); Anion Gap 7 (7-16); Aspartate Amino Transferase 32 U/L (0-34); BUN/Creatinine Ratio 8 Ratio (12-20); Bilirubin,Total 0.4 mg/dL (0.3-1.2); Blood Urea Nitrogen 7 mg/dL (9-23); Calcium 8.9 mg/dL (8.3-10.6); Calcium (Corrected) 9.1 mg/dL (8.5-10.1); Carbon Dioxide 30.6 mMol/L (20.0-31.0); Chloride 97 mMol/L (98-107); Creatinine (Component) 0.9 mg/dL (0.6-1.3); Estimated Creatinine Clearance 60.7 mL/min (>60); Globulin 2.2 gm/dL (2.3-3.5); Glucose 137 mg/dL (74-106); Magnesium 1.4 mg/dL (1.6-2.6); Osmolality,Calculated 270 (275-295); Potassium 4.1 mMol/L (3.4-5.1); Sodium 135 mMol/L (136-145); Total Protein 5.9 gm/dL (5.7-8.2); eGFR > 60 See Note
[2024-07-21] MEDS: INSULIN LISPRO (AdmeLOG) 1 UNIT/0.01 ML UNIT SC ×3 (07:45→17:25)
[2024-07-21] MEDS: INSULIN LISPRO (AdmeLOG) 1 UNIT/0.01 ML UNIT 3 UNIT SC ×3 (07:46→17:26)
--- NOTE | 2024-07-21 08:33 | PC.NURSE ---
Spoke with Dr. Plascencia regarding pt colonoscopy. Pt will be clear liquid all day 07/21. NPO at midnight. will schedule pt for colonoscopy 07/22 morning.
[2024-07-21] MEDS: PANTOPRAZOLE INJ 40 MG VIAL IVP (08:45)
[2024-07-21] MEDS: INSULIN GLARGINE (Lantus) 5 UNIT/0.05 ML (PER 5 UNITS) 28 UNIT SC (08:45)
[2024-07-21] MEDS: cefTRIAXone/D5w 1gm IV premix 50 ML IV (08:45)
[2024-07-21] MEDS: BusPIRone HCL 5 MG TABLET 10 MG PO (08:46)
[2024-07-21] MEDS: SODIUM CHLORIDE 1 GM TABLET PO (08:46)
--- NOTE | 2024-07-21 10:57 | ESPR_ITS ---
Documentation for date of: 07/21/24 Subjective Subjective Interval history: Patient was scheduled for a colonoscopy but she is not clear She will need additional GoLytely Procedure rescheduled for tomorrow Exam Vital Signs Temp Pulse Resp BP Pulse Ox O2 Del Method O2 Flow Rate 97.5 F 80 17 153/97 H 94 L Room Air 2 07/21/24 07:45 07/21/24 07:45 07/21/24 07:45 07/21/24 07:45 07/21/24 07:45 07/21/24 07:45 07/21/24 07:45 Objective Labs 07/22/24 04:35 07/22/24 04:35 Labs: Laboratory Results - last 24 hr 07/21/24 04:57 WBC 4.8 RBC 3.30 L Hgb 7.5 L Hct 24.1 L MCV 73 L MCH 22.7 L MCHC 31.1 RDW Std Deviation 42.1 Plt Count 213 Neut % (Auto) 45 Lymph % (Auto) 40 [place] % (Auto) 9 Eos % (Auto) 5 Baso % (Auto) 1 Neut # (Auto) 2.2 Lymph # (Auto) 1.9 [place] # (Auto) 0.4 Eos # (Auto) 0.3 Baso # (Auto) 0.0 Immature Gran # (Auto) 0.02 H Absolute Nucleated RBC 0.00 Immature Gran % 0 Nucleated RBC % 0 Sodium 135 L Potassium 4.1 Chloride 97 L Carbon Dioxide 30.6 Anion Gap 7 BUN 7 L Creatinine 0.9 Estim Creat Clear Calc 60.7 L eGFR > 60 BUN/Creatinine Ratio 8 L Glucose 137 H Calculated Osmolality 270 L Calcium 8.9 Corrected Calcium 9.1 Magnesium 1.4 L Total Bilirubin 0.4 AST 32 ALT 14 Alkaline Phosphatase 65 Total Protein 5.9 Albumin 3.7 Globulin 2.2 L Albumin/Globulin Ratio 1.7 Impressions Impression: # Acute posthemorrhagic anemia Additional GoLytely Continue clear liquid diet Colonoscopy scheduled for tomorrow ABG Interpretation ABG results: 07/15/24 22:58 ABG pH 7.40 ABG pCO2 39 ABG pO2 64 L ABG HCO3 24 ABG O2 Saturation 93 ABG Base Excess -1 Assessment & Plan A&P Narrative # Drop in hemoglobin hematocrit since admission currently at 8.0 and 24.4 Plan is Iron panel B12 folate level Reticulocyte count Stool for Hemoccult testing Fiberoptic esophagogastroduodenoscopy with possible biopsy possible therapeutic intervention under intravenous moderate sedation scheduled for tomorrow In case the EGD is negative we will consider doing a fibrotic colonoscopy prior to discharge Other medical problems include # Hyponatremia improving # Altered mental status dizziness improving # Pyelonephritis on IV antibiotics Thank you very much for the opportunity to participate in the care of this patient Time Spent With Patient Time: Total time spent is greater than 50% in coordination of care (as documented) at patient's floor/unit and/or counseling patient:
[2024-07-21] MEDS: Magnesium Sulfate 4 GM Ivpb 4 GM/50 ML BAG IV (11:08)
[2024-07-21] MEDS: NYSTATIN PWD 15 GM BTL TOP (11:28)
[2024-07-21] MEDS: hydrALAZINE INJ 20 MG/ML VIAL 10 MG IV ×2 (11:50→20:54)
[2024-07-21] MEDS: HYDROcodone/APAP 7.5/325 TABLET 1 TAB PO ×2 (15:24→21:33)
--- NOTE | 2024-07-21 16:35 | PD.RESPRO ---
Documentation for date of: 07/21/24 Subjective Subjective Interval history: Patient was seen and examined at bedside. Vital stable. She was complaining of mild pain in her fractured right fourth finger. We increased her [place] to 7.5/325 mg p.o. as needed every 6 hours. Patient was supposed to have colonoscopy today however procedure was postponed by the cornice upholsterer Dr. Plascencia. The patient was not cleared yet. Hemoglobin stable at 7.5. Continue Rocephin for her pyelonephritis. Exam Vital Signs Temp Pulse Resp BP Pulse Ox O2 Del Method O2 Flow Rate 98 F 85 17 179/90 H 99 Room Air 2 07/21/24 16:26 07/21/24 16:26 07/21/24 16:26 07/21/24 16:26 07/21/24 16:26 07/21/24 16:26 07/21/24 07:45 Narrative Exam GEN: AOx2, able to speak full sentences HEENT: NC/AC, oral mucosa moist, neck supple CVS: RRR, S1-S2 present, no murmurs appreciated RESP: CTAB GI: soft,non distended, non tender, NBS MSK: Right fourth finger splinted, no discoloration, able to move distal phalanx. able to move all 4 limbs, no lower extremity edema SKIN: warm and dry DELIVERY TECHNICIAN: CN II-XII and Sensation grossly intact. Objective Labs 07/22/24 04:35 07/22/24 04:35 Labs: Laboratory Results - last 24 hr 07/21/24 04:57 WBC 4.8 RBC 3.30 L Hgb 7.5 L Hct 24.1 L MCV 73 L MCH 22.7 L MCHC 31.1 RDW Std Deviation 42.1 Plt Count 213 Neut % (Auto) 45 Lymph % (Auto) 40 [place] % (Auto) 9 Eos % (Auto) 5 Baso % (Auto) 1 Neut # (Auto) 2.2 Lymph # (Auto) 1.9 [place] # (Auto) 0.4 Eos # (Auto) 0.3 Baso # (Auto) 0.0 Immature Gran # (Auto) 0.02 H Absolute Nucleated RBC 0.00 Immature Gran % 0 Nucleated RBC % 0 Sodium 135 L Potassium 4.1 Chloride 97 L Carbon Dioxide 30.6 Anion Gap 7 BUN 7 L Creatinine 0.9 Estim Creat Clear Calc 60.7 L eGFR > 60 BUN/Creatinine Ratio 8 L Glucose 137 H Calculated Osmolality 270 L Calcium 8.9 Corrected Calcium 9.1 Magnesium 1.4 L Total Bilirubin 0.4 AST 32 ALT 14 Alkaline Phosphatase 65 Total Protein 5.9 Albumin 3.7 Globulin 2.2 L Albumin/Globulin Ratio 1.7 ABG Interpretation ABG results: 07/15/24 22:58 ABG pH 7.40 ABG pCO2 39 ABG pO2 64 L ABG HCO3 24 ABG O2 Saturation 93 ABG Base Excess -1 Quality Measures Quality Measures none Assessment & Plan Assessment Current Active Medications: Generic Name Dose Route Start Last Admin Trade Name Freq PRN Reason Stop Dose Admin Acetaminophen 650 mg 07/19/24 09:57 07/21/24 12:15 Acetaminophen 325 Mg Tablet PO 08/14/24 21:41 650 mg Q4HR PRN Administration Pain Scale 1-3 fever>100.4 Hydrocodone Bitart/Acetaminophen 1 tab 07/21/24 12:59 07/21/24 15:24 Hydrocodone/Apap 7.5/325 Tablet PO 07/26/24 12:58 1 tab Q6HR PRN Administration Pain 4-6 Buspirone HCl 10 mg 07/16/24 09:30 07/21/24 08:46 Buspirone Hcl 5 Mg Tablet PO 08/15/24 09:29 10 mg QDAY ABRAN Administration Dextrose 25 ml 07/15/24 23:48 Dextrose 50%-Water Inj 50 Ml Syringe IV 08/14/24 23:47 Q15MIN PRN BG 50-70 responsive npo pt Dextrose 50 ml 07/15/24 23:48 Dextrose 50%-Water Inj 50 Ml Syringe IV 08/14/24 23:47 Q15MIN PRN BG <50 OR BG <70 & pt unresponsive Glucagon 1 mg 07/15/24 23:48 Glucagon Inj 1 Mg Vial IM Q15MIN PRN BG <70, and no IV access Heparin Sodium (Porcine) 5,000 unit 07/15/24 22:00 07/21/24 13:59 Heparin Sod Inj 5000 Unit/Ml Vial SC 07/29/24 21:59 5,000 unit Q8HR ABRAN Administration Hydralazine HCl 10 mg 07/16/24 04:46 07/21/24 11:50 Hydralazine Inj 20 Mg/Ml Vial IV 08/15/24 04:45 10 mg Q6HR PRN Administration SBP > 170 Ceftriaxone Sodium/Dextrose 50 mls @ 100 mls/hr 07/18/24 09:00 07/21/24 08:45 Rocephin/D5w 1gm Iv Premix IV 07/25/24 08:59 100 mls/hr QDAY ABRAN Administration Insulin Glargine 28 unit 07/19/24 09:00 07/21/24 08:45 Insulin Glargine (Lantus) 5 Unit/0.05 Ml (Per 5 Units) SC 08/18/24 08:59 28 unit QDAY ABRAN Administration Insulin Human Lispro 0 unit 07/18/24 16:31 07/21/24 11:51 Insulin Lispro (Admelog) 1 Unit/0.01 Ml Unit SC 08/17/24 08:14 8 unit ACHS ABRAN Administration Protocol Insulin Human Lispro 3 unit 07/19/24 08:00 07/21/24 11:51 Insulin Lispro (Admelog) 1 Unit/0.01 Ml Unit SC 08/18/24 07:59 3 unit TIDWM ABRAN Administration Levothyroxine Sodium 125 mcg 07/19/24 06:00 07/21/24 05:35 Levothyroxine Sodium 125 Mcg Tablet PO 08/15/24 05:59 125 mcg ACBR ABRAN Administration Nystatin 0 gm 07/16/24 21:00 07/21/24 11:28 Nystatin Pwd 15 Gm Btl TOP 08/15/24 20:59 1 applicatio BID ABRAN Administration Ondansetron HCl 4 mg 07/15/24 21:56 Ondansetron Inj 2 Mg/Ml Inj 2 Ml IV 08/14/24 21:55 Q6HR PRN NAUSEA OR VOMITING Pantoprazole Sodium 40 mg 07/16/24 09:00 07/21/24 08:45 Pantoprazole Inj 40 Mg Vial IVP 08/15/24 08:59 40 mg QDAY ABRAN Administration Sodium Chloride 1 gm 07/18/24 13:45 07/21/24 08:46 Sodium Chloride 1 Gm Tablet PO 08/17/24 13:44 1 gm QDAY ABRAN Administration Trazodone HCl 200 mg 07/16/24 21:00 07/20/24 20:14 Trazodone Hcl 50 Mg Tablet PO 08/15/24 20:59 200 mg HS ABRAN Administration Plan Assessment 63-year-old woman with past medical history of diabetes mellitus type 2, hyperlipidemia, hypothyroidism and colon cancer s/p resection came to the ED due to chief complaint of vomiting, poor oral intake and generalized weakness for 1 week associated to mild abdominal pain and nonproductive cough. she also stated that she was feeling dizzy and sustained a fall injuring her right hand twice she denied LOC. patient denied chest pain, dysuria, melena, hematemesis or any other associated symptoms different than the mentioned above. ED course: Initial vitals: Blood pressure 135/83 HR 93 RR 18 afebrile SpO2 98% on room air Pertinent labs: Hgb 9.5 HCT 28.6, ABGs unremarkable 116, creatinine 1.7, glucose 208, osmolality 263, beta-hydroxybutyrate negative, influenza, COVID and RSV negative Imaging: Chest x-ray was negative for acute disease, hand x-ray showed Acute fractures proximal phalanx fourth digit, CT head was negative, CT abdomen pelvis showed Perinephric stranding with mild to moderate bilateral renal parenchymal scar, formation, no hydronephrosis or ureteral calculi, EKG sinus rhythm no acute ST changes or T wave inversions per my interpretation. At the ED the patient received:1 L bolus NS, The patient will be admitted for further treatment and management of acute symptomatic hypoosmolar hyponatremia and pyelonephritis. #? GI bleed #Iron deficiency anemia #Acute on chronic anemia Possibly secondary to CKD vs anemia of chronic disease Pt to get EGD today Ferritin and TIBC normal, Iron is ~16 (low) EGD shows esophagitis gastritis Currently being prepped for colonoscopy, will have today by Dr. Plascencia MCV microcytic in nature Hgb today 7.5, minimal change from yesterday (7.4) Plan: ?Follow-up CBC. ?Transfuse if hemoglobin less than 7. ?Follow up colonoscopy results #Pyelonephritis, improving No leukocytosis. UA no WBCs, RBCs 4, negative for bacteria otherwise. CT abdomen pelvis showed Perinephric stranding with mild to moderate bilateral renal parenchymal scar, formation, no hydronephrosis or ureteral calculi. Urine culture shows pansensitive Klebsiella, will down titrate abx Plan: ? IV Rocephin 1 g daily. ? Follow-up CBC and CMP. #Right hand injury. #Acute fracture of proximal phalanx of fourth digit. Secondary to fall, hand x-ray showed Acute fractures proximal phalanx fourth digit. Placed splint Pt does not want surgical intervention, Ortho recommends continue splint and pt can follow up with him, Dr. Maurer, outpatient Plan: ? Ortho on consult, appreciate recs ? [place] every 6 hours as needed for pain. ? IV morphine 1 mg every 4 hours. #TRISTAN, resolved Plan: - Strict ins and outs. - Avoid nephrotoxic drugs. - Renally dose medications. - Follow-up CMP #Hx of colon cancer s/p bowel resection Patient does not get any treatment currently, in remission at this time #Diabetes mellitus type 2. On metformin 500 mg BID at home, remote history of insulin treatment. HgbA1C 9.8%. Sugar 255, will adjust for lantus and short acting after pt is not NPO Plan: ? Accu-Cheks. ? Sliding scale insulin. ? Hypoglycemia protocol in place. #Hx of hypothyroidism. #Low TSH TSH 0.09; Free T4 1.32 Could be reactive Plan: ?Continue home levothyroxine 125 mcg daily. #Intertrigo. Patient reports rash between her breast which is very itchy, consistent with hilton infection. Plan: ?Nystatin powder BID. #Acute encephalopathy, resolved #Hypoosmolar hyponatremia, improved, secondary to, resolved #Symptomatic hyponatremia resolved #Intractable nausea and vomiting, resolved #Electrolyte imbalances resolved #Health Maintenance Disposition: MedSurg DVT prophylaxis: Heparin GI prophylaxis: Protonix Diet: NPO CODE STATUS: DNR - Patient's plan and care discussed with my attending, Dr. Annamarie Hagan MD Internal Medicine PGY-2 Attending Provider Attestation/Addendum I have examined the patient, reviewed labs and imaging findings, discussed the case with the resident(s), and reviewed entered orders. I agree with the plan of care as outlined in this note, with these additional summaries/recommendations: Patient seen at bedside. No acute overnight events. Colonoscopy canceled yesterday as patient is still not cleared. Continue GoLytely. Sodium stable. Continue finger brace for right proximal phalanx fourth digit fracture. Outpatient orthopedics follow-up. Continue to titrate pain management as needed. Repeat hematology and chemistry panel in AM. Dr. De Luna
[2024-07-21] MEDS: traZODone HCL 50 MG TABLET 200 MG PO (20:49)
[2024-07-21] MEDS: ONDANSETRON INJ 2 MG/ML INJ 2 ML 4 MG IV (21:03)
--- NOTE | 2024-07-21 23:05 | PD.VPROG1 ---
Telemedicine visit statement This visit was conducted with the use of phone visit was obtained on 07/21/24 at 2305. Documentation for date of: 07/21/24 Subjective Subjective Interval history: Patient is in MedSurg. No new symptoms reported. Virtual exam Vital Signs Temp Pulse Resp BP Pulse Ox O2 Del Method O2 Flow Rate 97.8 F 85 17 122/61 97 Room Air 2 07/21/24 20:00 07/21/24 22:22 07/21/24 22:22 07/21/24 22:22 07/21/24 22:22 07/21/24 22:22 07/21/24 07:45 Objective Labs 07/21/24 04:57 07/21/24 04:57 Labs: Laboratory Results - last 24 hr 07/21/24 04:57 WBC 4.8 RBC 3.30 L Hgb 7.5 L Hct 24.1 L MCV 73 L MCH 22.7 L MCHC 31.1 RDW Std Deviation 42.1 Plt Count 213 Neut % (Auto) 45 Lymph % (Auto) 40 [place] % (Auto) 9 Eos % (Auto) 5 Baso % (Auto) 1 Neut # (Auto) 2.2 Lymph # (Auto) 1.9 [place] # (Auto) 0.4 Eos # (Auto) 0.3 Baso # (Auto) 0.0 Immature Gran # (Auto) 0.02 H Absolute Nucleated RBC 0.00 Immature Gran % 0 Nucleated RBC % 0 Sodium 135 L Potassium 4.1 Chloride 97 L Carbon Dioxide 30.6 Anion Gap 7 BUN 7 L Creatinine 0.9 Estim Creat Clear Calc 60.7 L eGFR > 60 BUN/Creatinine Ratio 8 L Glucose 137 H Calculated Osmolality 270 L Calcium 8.9 Corrected Calcium 9.1 Magnesium 1.4 L Total Bilirubin 0.4 AST 32 ALT 14 Alkaline Phosphatase 65 Total Protein 5.9 Albumin 3.7 Globulin 2.2 L Albumin/Globulin Ratio 1.7 ABG Interpretation ABG results: 07/15/24 22:58 ABG pH 7.40 ABG pCO2 39 ABG pO2 64 L ABG HCO3 24 ABG O2 Saturation 93 ABG Base Excess -1 Assessment & Plan Problem List (1) Altered mental status: Status: Resolved Assessment and plan: Intermittent confusion noted, overall significant improvement noted in her mental status with correction of metabolic factors. No need for any other workup. Could be related to metabolic encephalopathy/hyponatremia and acute kidney injury. (2) Hand fracture, right: Status: Acute Assessment and plan: Seen by Dr. Maurer for the fracture proximal phalanx of the right fourth digit (3) Hyponatremia: Status: Acute Assessment and plan: Sodium is coming up slowly Continue with sodium tablet as recommended by nephrology avoid rapid correction.
[2024-07-22] VITALS (20 sets, daily range): BP systolic 120–184; BP diastolic 70–101; PULSE 74–107; RESP 12–18; TEMP 36.1–36.9; O2SAT 93–99
[2024-07-22 05:12] LABS: Basophils % (Auto) 1 % (0-2.5); Eosinophils # (Auto) 0.2 Thou/mm3 (0.0-0.5); Eosinophils % (Auto) 3 % (0-10); Hematocrit 27.4 % (36.0-46.0); Hemoglobin 8.6 g/dL (12.0-16.0); Immature Granulocytes % (Auto) 0 % (0-0); Immature Granulocytes Auto 0.02 Thou/mm3 (0.00-0.00); Lymphocytes # (Auto) 1.9 Thou/mm3 (1.0-4.8); Lymphocytes % (Auto) 30 % (10-50); Mean Corpuscular HGB Conc 31.4 g/dl (31.0-37.0); Mean Corpuscular Hemoglobin 22.9 pg (25.0-35.0); Mean Corpuscular Volume 73 fL (80-100); Monocytes # (Auto) 0.6 Thou/mm3 (0.0-0.8); Monocytes % (Auto) 9 % (0-12); Neutrophils # (Auto) 3.8 Thou/mm3 (1.8-7.7); Neutrophils % (Auto) 57 % (37-80); Nucleated Red Blood Cell % 0 /100 WBC (0); Platelet Count 153 Thou/mm3 (140-440); RDW Standard Deviation 41.6 fL (36.4-46.3); Red Blood Count 3.75 Miln/mm3 (4.00-5.20); White Blood Count 6.6 Thou/mm3 (3.6-11.0)
[2024-07-22 05:38] LABS: Alanine Aminotransferase 13 U/L (10-49); Albumin/Globulin Ratio 1.6 (1.2-2.2); Alkaline Phosphatase 76 U/L (46-116); Anion Gap 8 (7-16); Aspartate Amino Transferase < 10 U/L (0-34); BUN/Creatinine Ratio 6 Ratio (12-20); Bilirubin,Total 0.6 mg/dL (0.3-1.2); Blood Urea Nitrogen 6 mg/dL (9-23); Calcium 9.3 mg/dL (8.3-10.6); Calcium (Corrected) 9.3 mg/dL (8.5-10.1); Carbon Dioxide 29.1 mMol/L (20.0-31.0); Chloride 94 mMol/L (98-107); Estimated Creatinine Clearance 54.6 mL/min (>60); Globulin 2.5 gm/dL (2.3-3.5); Glucose 157 mg/dL (74-106); Magnesium 2.3 mg/dL (1.6-2.6); Osmolality,Calculated 263 (275-295); Potassium 4.5 mMol/L (3.4-5.1); Sodium 131 mMol/L (136-145); Total Protein 6.5 gm/dL (5.7-8.2); eGFR > 60 See Note
[2024-07-22] MEDS: HYDROcodone/APAP 7.5/325 TABLET 1 TAB PO ×3 (07:27→23:44)
[2024-07-22] MEDS: PANTOPRAZOLE INJ 40 MG VIAL IVP (08:47)
[2024-07-22] MEDS: SODIUM CHLORIDE 1 GM TABLET PO (08:48)
[2024-07-22] MEDS: BusPIRone HCL 5 MG TABLET 10 MG PO (08:48)
[2024-07-22] MEDS: cefTRIAXone/D5w 1gm IV premix 50 ML IV (08:48)
--- NOTE | 2024-07-22 11:55 | PC.NURSE ---
Pt bedside glucose 190. Pt NPO no coverage given MD aware.
--- NOTE | 2024-07-22 14:52 | SUR.OPER ---
1435 Time out performed. IV checked earlier, was working. IV leaking now. 1445 New IV started, to right lower forearm. Pt john well.
--- NOTE | 2024-07-22 15:12 | SUR.PHASEI ---
1512 Patient arrived to recovery, report received from Maria C DALE
--- NOTE | 2024-07-22 15:29 | SUR.PHASEI ---
patient eating ice chips; tolerating well
--- NOTE | 2024-07-22 15:45 | SUR.PHASEI ---
1544 Report given to Lilibeth DALE, patient meets discharge criteria from recovery, awake and alert, on oxygen 2L via nasal cannula, breathing unlabored, vital signs stable, denies pain and nausea 1545 Patient transported via gurney to room 370 without incident
[2024-07-22] MEDS: INSULIN LISPRO (AdmeLOG) 1 UNIT/0.01 ML UNIT 3 UNIT SC (16:44)
[2024-07-22] MEDS: INSULIN LISPRO (AdmeLOG) 1 UNIT/0.01 ML UNIT SC ×2 (16:45→20:37)
--- NOTE | 2024-07-22 16:51 | PD.RESPRO ---
Documentation for date of: 07/22/24 Subjective Subjective Interval history: Patient was seen and examined at bedside. No overnight incidents, denied any pain. Patient is scheduled for colonoscopy today by Dr. Plascencia. Hemoglobin stable at 8.6, platelets within normal limits Exam Vital Signs Temp Pulse Resp BP Pulse Ox O2 Del Method O2 Flow Rate 97.9 F 92 18 170/92 H 99 Nasal Cannula 2 07/22/24 16:00 07/22/24 16:00 07/22/24 16:00 07/22/24 16:00 07/22/24 16:00 07/22/24 16:00 07/22/24 16:00 Narrative Exam GEN: AOx3, able to speak full sentences HEENT: NC/AC, oral mucosa moist, neck supple CVS: RRR, S1-S2 present, no murmurs appreciated RESP: CTAB GI: soft,non distended, non tender, NBS MSK: Right fourth finger splinted, no discoloration, able to move distal phalanx. able to move all 4 limbs, no lower extremity edema SKIN: warm and dry RAILROAD CAR LOADER: CN II-XII and Sensation grossly intact. Objective Labs 07/23/24 05:10 07/23/24 05:10 Labs: Laboratory Results - last 24 hr 07/22/24 04:35 WBC 6.6 RBC 3.75 L Hgb 8.6 L Hct 27.4 L MCV 73 L MCH 22.9 L MCHC 31.4 RDW Std Deviation 41.6 Plt Count 153 D Neut % (Auto) 57 Lymph % (Auto) 30 [place] % (Auto) 9 Eos % (Auto) 3 Baso % (Auto) 1 Neut # (Auto) 3.8 Lymph # (Auto) 1.9 [place] # (Auto) 0.6 Eos # (Auto) 0.2 Baso # (Auto) 0.0 Immature Gran # (Auto) 0.02 H Absolute Nucleated RBC 0.00 Immature Gran % 0 Nucleated RBC % 0 Sodium 131 L Potassium 4.5 Chloride 94 L Carbon Dioxide 29.1 Anion Gap 8 BUN 6 L Creatinine 1.0 Estim Creat Clear Calc 54.6 L eGFR > 60 BUN/Creatinine Ratio 6 L Glucose 157 H Calculated Osmolality 263 L Calcium 9.3 Corrected Calcium 9.3 Magnesium 2.3 Total Bilirubin 0.6 AST < 10 ALT 13 Alkaline Phosphatase 76 Total Protein 6.5 Albumin 4.0 Globulin 2.5 Albumin/Globulin Ratio 1.6 ABG Interpretation ABG results: 07/15/24 22:58 ABG pH 7.40 ABG pCO2 39 ABG pO2 64 L ABG HCO3 24 ABG O2 Saturation 93 ABG Base Excess -1 Quality Measures Quality Measures none Assessment & Plan Assessment Current Active Medications: Generic Name Dose Route Start Last Admin Trade Name Miloq PRN Reason Stop Dose Admin Acetaminophen 650 mg 07/19/24 09:57 07/21/24 12:15 Acetaminophen 325 Mg Tablet PO 08/14/24 21:41 650 mg Q4HR PRN Administration Pain Scale 1-3 fever>100.4 Hydrocodone Bitart/Acetaminophen 1 tab 07/21/24 12:59 07/22/24 07:27 Hydrocodone/Apap 7.5/325 Tablet PO 07/26/24 12:58 1 tab Q6HR PRN Administration Pain 4-6 Buspirone HCl 10 mg 07/16/24 09:30 07/22/24 08:48 Buspirone Hcl 5 Mg Tablet PO 08/15/24 09:29 10 mg QDAY ABRAN Administration Dextrose 25 ml 07/15/24 23:48 Dextrose 50%-Water Inj 50 Ml Syringe IV 08/14/24 23:47 Q15MIN PRN BG 50-70 responsive npo pt Dextrose 50 ml 07/15/24 23:48 Dextrose 50%-Water Inj 50 Ml Syringe IV 08/14/24 23:47 Q15MIN PRN BG <50 OR BG <70 & pt unresponsive Glucagon 1 mg 07/15/24 23:48 Glucagon Inj 1 Mg Vial IM Q15MIN PRN BG <70, and no IV access Heparin Sodium (Porcine) 5,000 unit 07/15/24 22:00 07/22/24 13:56 Heparin Sod Inj 5000 Unit/Ml Vial SC 07/29/24 21:59 Not Given Q8HR ABRAN Hydralazine HCl 10 mg 07/16/24 04:46 07/21/24 20:54 Hydralazine Inj 20 Mg/Ml Vial IV 08/15/24 04:45 10 mg Q6HR PRN Administration SBP > 170 Ceftriaxone Sodium/Dextrose 50 mls @ 100 mls/hr 07/18/24 09:00 07/22/24 08:48 Rocephin/D5w 1gm Iv Premix IV 07/25/24 08:59 100 mls/hr QDAY ABRAN Administration Insulin Glargine 28 unit 07/19/24 09:00 07/22/24 08:48 Insulin Glargine (Lantus) 5 Unit/0.05 Ml (Per 5 Units) SC 08/18/24 08:59 Not Given QDAY ABRAN Insulin Human Lispro 3 unit 07/19/24 08:00 07/22/24 11:56 Insulin Lispro (Admelog) 1 Unit/0.01 Ml Unit SC 08/18/24 07:59 Not Given TIDWM ABRAN Insulin Human Lispro 0 unit 07/22/24 17:00 Insulin Lispro (Admelog) 1 Unit/0.01 Ml Unit SC 08/21/24 16:59 ACHS [facility] Protocol Levothyroxine Sodium 125 mcg 07/19/24 06:00 07/22/24 06:20 Levothyroxine Sodium 125 Mcg Tablet PO 08/15/24 05:59 Not Given ACBR ABRAN Nystatin 0 gm 07/16/24 21:00 07/22/24 08:48 Nystatin Pwd 15 Gm Btl TOP 08/15/24 20:59 Not Given BID ABRAN Ondansetron HCl 4 mg 07/15/24 21:56 07/21/24 21:03 Ondansetron Inj 2 Mg/Ml Inj 2 Ml IV 08/14/24 21:55 4 mg Q6HR PRN Administration NAUSEA OR VOMITING Pantoprazole Sodium 40 mg 07/16/24 09:00 07/22/24 08:47 Pantoprazole Inj 40 Mg Vial IVP 08/15/24 08:59 40 mg QDAY ABRAN Administration Polyethylene Glycol 17 gm 07/22/24 21:00 Polyethylene Glycol 17 Gm Packet PO 08/21/24 20:59 BID ABRAN Sennosides 1 tab 07/22/24 21:00 Senna Tablet PO 08/21/24 20:59 BID ABRAN Protocol Sodium Chloride 1 gm 07/18/24 13:45 07/22/24 08:48 Sodium Chloride 1 Gm Tablet PO 08/17/24 13:44 1 gm QDAY ABRAN Administration Trazodone HCl 200 mg 07/16/24 21:00 07/21/24 20:49 Trazodone Hcl 50 Mg Tablet PO 08/15/24 20:59 200 mg HS ABRAN Administration Plan Assessment 63-year-old woman with past medical history of diabetes mellitus type 2, hyperlipidemia, hypothyroidism and colon cancer s/p resection came to the ED due to chief complaint of vomiting, poor oral intake and generalized weakness for 1 week associated to mild abdominal pain and nonproductive cough. she also stated that she was feeling dizzy and sustained a fall injuring her right hand twice she denied LOC. patient denied chest pain, dysuria, melena, hematemesis or any other associated symptoms different than the mentioned above. ED course: Initial vitals: Blood pressure 135/83 HR 93 RR 18 afebrile SpO2 98% on room air Pertinent labs: Hgb 9.5 HCT 28.6, ABGs unremarkable 116, creatinine 1.7, glucose 208, osmolality 263, beta-hydroxybutyrate negative, influenza, COVID and RSV negative Imaging: Chest x-ray was negative for acute disease, hand x-ray showed Acute fractures proximal phalanx fourth digit, CT head was negative, CT abdomen pelvis showed Perinephric stranding with mild to moderate bilateral renal parenchymal scar, formation, no hydronephrosis or ureteral calculi, EKG sinus rhythm no acute ST changes or T wave inversions per my interpretation. At the ED the patient received:1 L bolus NS, The patient will be admitted for further treatment and management of acute symptomatic hypoosmolar hyponatremia and pyelonephritis. #? GI bleed #Iron deficiency anemia #Acute on chronic anemia Possibly secondary to CKD vs anemia of chronic disease Pt to get EGD today Ferritin and TIBC normal, Iron is ~16 (low) EGD shows esophagitis gastritis Currently being prepped for colonoscopy, will have today by Dr. Plascencia MCV microcytic in nature Hgb today 7.5, minimal change from yesterday (7.4) Plan: ?Follow-up CBC. ?Transfuse if hemoglobin less than 7. ?Follow up colonoscopy results #Pyelonephritis, improving No leukocytosis. UA no WBCs, RBCs 4, negative for bacteria otherwise. CT abdomen pelvis showed Perinephric stranding with mild to moderate bilateral renal parenchymal scar, formation, no hydronephrosis or ureteral calculi. Urine culture shows pansensitive Klebsiella, will down titrate abx Plan: ? IV Rocephin 1 g daily 18/07? ? Follow-up CBC and CMP. #Right hand injury. #Acute fracture of proximal phalanx of fourth digit. Secondary to fall, hand x-ray showed Acute fractures proximal phalanx fourth digit. Placed splint Pt does not want surgical intervention, Ortho recommends continue splint and pt can follow up with him, Dr. Maurer, outpatient Plan: ? Ortho on consult, appreciate recs ? [place] every 6 hours as needed for pain. ? IV morphine 1 mg every 4 hours. #TRISTAN, resolved Plan: - Strict ins and outs. - Avoid nephrotoxic drugs. - Renally dose medications. - Follow-up CMP #Hx of colon cancer s/p bowel resection Patient does not get any treatment currently, in remission at this time #Diabetes mellitus type 2. On metformin 500 mg BID at home, remote history of insulin treatment. HgbA1C 9.8%. pt is NPO for colonoscopy Plan: ? Accu-Cheks. ? Sliding scale insulin every 6 hours ? Hypoglycemia protocol in place. #Hx of hypothyroidism. #Low TSH TSH 0.09; Free T4 1.32 Could be reactive Plan: ?Continue home levothyroxine 125 mcg daily. #Intertrigo. Patient reports rash between her breast which is very itchy, consistent with hilton infection. Plan: ?Nystatin powder BID. #Acute encephalopathy, resolved #Hypoosmolar hyponatremia, improved, secondary to, resolved #Symptomatic hyponatremia resolved #Intractable nausea and vomiting, resolved #Electrolyte imbalances resolved #Health Maintenance Disposition: MedSurg DVT prophylaxis: Heparin GI prophylaxis: Protonix Diet: NPO CODE STATUS: DNR - Patient's plan and care discussed with my attending, Dr. Annamarie Hagan MD Internal Medicine PGY-2 Attending Provider Attestation/Addendum I have examined the patient, reviewed labs and imaging findings, discussed the case with the resident(s), and reviewed entered orders. I agree with the plan of care as outlined in this note, with these additional summaries/recommendations: Patient seen at bedside. No acute overnight events. Patient went for colonoscopy today that revealed hemorrhoids and a normal colon. GI recommendations to advance diet, MiraLAX twice daily, senokot twice daily, and increase free water intake plus fiber. Continue IV Rocephin for pyelonephritis. Continue finger splint for acute fracture of proximal phalanx of fourth digit on right hand. Patient was seen by orthopedics and recommends outpatient follow-up. If patient is able to tolerate diet then anticipate discharge in the next 24 to 48 hours. Repeat chemistry and hematology panel in AM. Dr. De Luna
[2024-07-22] MEDS: traZODone HCL 50 MG TABLET 200 MG PO (20:37)
[2024-07-23] VITALS: BP 111/56; PULSE 92; RESP 18; TEMP 36.6; O2SAT 94
[2024-07-23 04:00] VITALS: BP 143/67; PULSE 88; RESP 17; TEMP 36.4; O2SAT 98
[2024-07-23] MEDS: LEVOTHYROXINE SODIUM 125 MCG TABLET PO (05:26)
[2024-07-23 06:06] LABS: Basophils % (Auto) 1 % (0-2.5); Eosinophils # (Auto) 0.2 Thou/mm3 (0.0-0.5); Eosinophils % (Auto) 4 % (0-10); Hematocrit 23.3 % (36.0-46.0); Immature Granulocytes % (Auto) 0 % (0-0); Immature Granulocytes Auto 0.02 Thou/mm3 (0.00-0.00); Lymphocytes # (Auto) 2.2 Thou/mm3 (1.0-4.8); Lymphocytes % (Auto) 42 % (10-50); Mean Corpuscular HGB Conc 31.3 g/dl (31.0-37.0); Mean Corpuscular Hemoglobin 22.7 pg (25.0-35.0); Mean Corpuscular Volume 72 fL (80-100); Monocytes # (Auto) 0.6 Thou/mm3 (0.0-0.8); Monocytes % (Auto) 12 % (0-12); Neutrophils # (Auto) 2.2 Thou/mm3 (1.8-7.7); Neutrophils % (Auto) 40 % (37-80); Nucleated Red Blood Cell % 0 /100 WBC (0); Platelet Count 159 Thou/mm3 (140-440); RDW Standard Deviation 40.4 fL (36.4-46.3); Red Blood Count 3.22 Miln/mm3 (4.00-5.20); White Blood Count 5.3 Thou/mm3 (3.6-11.0)
[2024-07-23 06:29] LABS: Hemoglobin 7.3 g/dL (12.0-16.0)
[2024-07-23 06:32] LABS: Alanine Aminotransferase 10 U/L (10-49); Albumin, Serum 3.5 gm/dL (3.4-4.8); Albumin/Globulin Ratio 1.6 (1.2-2.2); Alkaline Phosphatase 72 U/L (46-116); Anion Gap 6 (7-16); Aspartate Amino Transferase 18 U/L (0-34); BUN/Creatinine Ratio 12 Ratio (12-20); Bilirubin,Total 0.5 mg/dL (0.3-1.2); Blood Urea Nitrogen 12 mg/dL (9-23); Calcium 9.5 mg/dL (8.3-10.6); Calcium (Corrected) 9.9 mg/dL (8.5-10.1); Carbon Dioxide 29.9 mMol/L (20.0-31.0); Chloride 95 mMol/L (98-107); Estimated Creatinine Clearance 54.6 mL/min (>60); Globulin 2.2 gm/dL (2.3-3.5); Glucose 176 mg/dL (74-106); Magnesium 1.7 mg/dL (1.6-2.6); Osmolality,Calculated 266 (275-295); Potassium 4.2 mMol/L (3.4-5.1); Sodium 131 mMol/L (136-145); Total Protein 5.7 gm/dL (5.7-8.2); eGFR > 60 See Note
[2024-07-23] MEDS: INSULIN LISPRO (AdmeLOG) 1 UNIT/0.01 ML UNIT 3 UNIT SC ×2 (07:26→11:55)
[2024-07-23] MEDS: INSULIN LISPRO (AdmeLOG) 1 UNIT/0.01 ML UNIT SC ×2 (07:26→11:56)
[2024-07-23] MEDS: HYDROcodone/APAP 7.5/325 TABLET 1 TAB PO (07:29)
[2024-07-23 08:00] VITALS: BP 159/87; PULSE 84; RESP 15; TEMP 36.2; O2SAT 97
--- NOTE | 2024-07-23 09:48 | PC.SS ---
Follow up note: Pt is d/c for today. Pt will return home.
[2024-07-23] MEDS: POLYETHYLENE GLYCOL 17 GM PACKET PO (09:59)
[2024-07-23] MEDS: cefTRIAXone/D5w 1gm IV premix 50 ML IV (09:59)
[2024-07-23] MEDS: PANTOPRAZOLE INJ 40 MG VIAL IVP (09:59)
[2024-07-23] MEDS: INSULIN GLARGINE (Lantus) 5 UNIT/0.05 ML (PER 5 UNITS) 28 UNIT SC (10:00)
[2024-07-23] MEDS: NYSTATIN PWD 15 GM BTL TOP (10:00)
[2024-07-23] MEDS: BusPIRone HCL 5 MG TABLET 10 MG PO (10:01)
[2024-07-23] MEDS: SENNA TABLET 1 TAB PO (10:01)
[2024-07-23] MEDS: SODIUM CHLORIDE 1 GM TABLET PO (10:01)
--- NOTE | 2024-07-23 11:38 | PC.CM ---
spoke to [facility] pt needs Home health for PT. Pt sees Magdalene MARTIN who is under Dr. Willi Park. Pending orders.
--- NOTE | 2024-07-23 11:41 | PC.SS ---
Addendum entered by Chari Givens 07/23/24 15:38: Ros RAMIREZ has accepted DME order for rollator walker from and is aware to contact pt for delivery (from [facility]). Addendum entered by Chari Givens 07/23/24 11:56: SS met with pt who is requesting a rollator walker. SS has sent DME order using [employer]. Pt is aware if her insurance approves a rollator walk insurance authorizations is still required. Original Note: SS was informed by Maynor from PT he is recommending HH Services. SS met with pt who does not have preference for HH. Pt states she last followed up with Magdalene Aquino at [facility] in April 2024. has called Eli from [facility] to schedule pt an appointment for tomorrow 07-24-24 at 2pm with Magdalene Aquino. SS also confirmed Magdalene Aquino is under Dr. Griffiths at [facility]. Transfer nurseColton is aware. has provided pt with the Community Resource List with appointment time, date, address, and phone#.
[2024-07-23 12:00] VITALS: BP 193/105; PULSE 85; RESP 19; TEMP 36.1; O2SAT 91
[2024-07-23] MEDS: hydrALAZINE INJ 20 MG/ML VIAL 10 MG IV (12:00)
--- NOTE | 2024-07-23 12:12 | ESPR_ITS ---
Documentation for date of: 07/23/24 Subjective Subjective Interval history: Drop in hemoglobin hematocrit to 7.3 and 23.5 No signs of any active bleeding Colonoscopy showed internal hemorrhoids otherwise normal colonoscopy to cecum Upper endoscopy showed gastritis without any hemorrhage Monitor CBC Continue current management Exam Vital Signs Temp Pulse Resp BP Pulse Ox O2 Del Method O2 Flow Rate 97.1 F 85 15 193/105 H 97 Nasal Cannula 2 07/23/24 08:00 07/23/24 12:00 07/23/24 08:00 07/23/24 12:00 07/23/24 08:00 07/23/24 08:00 07/23/24 08:00 Objective Labs 07/23/24 05:10 07/23/24 05:10 Labs: Laboratory Results - last 24 hr 07/23/24 05:10 WBC 5.3 RBC 3.22 L Hgb 7.3 L Hct 23.3 L MCV 72 L MCH 22.7 L MCHC 31.3 RDW Std Deviation 40.4 Plt Count 159 Neut % (Auto) 40 Lymph % (Auto) 42 [place] % (Auto) 12 Eos % (Auto) 4 Baso % (Auto) 1 Neut # (Auto) 2.2 Lymph # (Auto) 2.2 [place] # (Auto) 0.6 Eos # (Auto) 0.2 Baso # (Auto) 0.0 Immature Gran # (Auto) 0.02 H Absolute Nucleated RBC 0.00 Immature Gran % 0 Nucleated RBC % 0 Sodium 131 L Potassium 4.2 Chloride 95 L Carbon Dioxide 29.9 Anion Gap 6 L BUN 12 Creatinine 1.0 Estim Creat Clear Calc 54.6 L eGFR > 60 BUN/Creatinine Ratio 12 Glucose 176 H Calculated Osmolality 266 L Calcium 9.5 Corrected Calcium 9.9 Magnesium 1.7 Total Bilirubin 0.5 AST 18 ALT 10 Alkaline Phosphatase 72 Total Protein 5.7 Albumin 3.5 D Globulin 2.2 L Albumin/Globulin Ratio 1.6 Impressions Impression: # Gastritis # Esophagitis # Internal hemorrhoids otherwise normal colonoscopy to cecum Continue current management ABG Interpretation ABG results: 07/15/24 22:58 ABG pH 7.40 ABG pCO2 39 ABG pO2 64 L ABG HCO3 24 ABG O2 Saturation 93 ABG Base Excess -1 Assessment & Plan A&P Narrative # Drop in hemoglobin hematocrit since admission currently at 8.0 and 24.4 Plan is Iron panel B12 folate level Reticulocyte count Stool for Hemoccult testing Fiberoptic esophagogastroduodenoscopy with possible biopsy possible therapeutic intervention under intravenous moderate sedation scheduled for tomorrow In case the EGD is negative we will consider doing a fibrotic colonoscopy prior to discharge Other medical problems include # Hyponatremia improving # Altered mental status dizziness improving # Pyelonephritis on IV antibiotics Thank you very much for the opportunity to participate in the care of this patient Time Spent With Patient Time: Total time spent is greater than 50% in coordination of care (as documented) at patient's floor/unit and/or counseling patient:
--- NOTE | 2024-07-23 12:19 | PD.RESDS ---
Planned Discharge Date 07/23/24 DS: Providers Provider Date of admission: 07/15/24 21:42 Primary care physician: Magdalene Aquino NP Admitting Provider: Fer De La Fuente MD Attending Provider on Admission: Ez De Luna MD Consults: 07/15/24 22:36 Consult to Nephrology Urgent Comment: acute hyponatremia Consulting Provider: Soto Salomon 07/17/24 06:58 Consult to Gastroenterology Stat Comment: Consulting Provider: Rivera Plascencia 07/17/24 10:40 Consult to Neurology / Tele-Neurology Routine Comment: encephalopathy, symptomatic hyponatremia Consulting Provider: Hardeep Rivers 07/17/24 12:00 Consult to Orthopedic Routine Comment: fracture 4th phalanx, R hand Consulting Provider: Kris Maurer 07/21/24 08:59 Referral Physical Therapy Routine Comment: Physician Instructions: Attending Provider on DC: Ez De Luna MD Discharging Provider: Ez De Luna MD Anticipated date of discharge: 07/23/24 DS: Diagnosis Problem List Completed Was Problem List Reviewed/Reconciled?: Yes Hospital Course Hospital Course Hospital course: Hospital Course: Ms. Hung is a 63-year-old female with past medical history of type 2 diabetes mellitus, hyperlipidemia, hypothyroidism and colon cancer status postresection who presented to [facility] ED with chief complaint of vomiting poor oral intake dizziness and generalized weakness for the last 1 week associated with mild abdominal pain and nonproductive cough. On admission CT abdomen pelvis showed perinephric stranding with mild to moderate bilateral renal parenchymal scar formation patient was given 1 L bolus in ED and was admitted for acute encephalopathy due to underlying pyelonephritis. Patient was given IV antibiotics, IV hydration, diabetes was managed with sliding scale insulin. Patient's hospital course was complicated due to concern of GI bleed, patient had EGD and colonoscopy, no source of GI bleed was identified patient's anemia possibly secondary to iron deficiency patient will be started on oral iron tablets. Patient also developed hyponatremia, nephrology was consulted and sodium was corrected with the goal of 4 to 6 mEq in 24 hours. Patient recommended to receive IV iron infusions outpatient, follow-up with orthopedic surgeon for finger fracture, continue cefdinir for 2 more days, continue salt tablet daily and follow-up with nephrology outpatient. Patient is stable for discharge. Discharge Diagnoses: #Acute encephalopathy, resolved #Pyelonephritis #Hypoosmolar hyponatremia, improved, secondary to, resolved #Symptomatic hyponatremia resolved #GI bleed Workup #Iron deficiency anemia #Acute on chronic anemia #Right hand injury. #Acute fracture of proximal phalanx of fourth digit. #TRISTAN, resolved #Hx of colon cancer s/p bowel resection #Diabetes mellitus type 2. #Hx of hypothyroidism. #Low TSH #Intertrigo. #Intractable nausea and vomiting, resolved #Electrolyte imbalances resolved Case discussed with Attending Dr. De Luna. Selvin Sanchez PGY1 Status at Discharge Functional status at discharge: independent ambulation Overall status at discharge: patient is progressing back to baseline Time Spent with Patient Time attestation: Total time spent providing and/or coordinating discharge services: greater than 35 minutes Time spent: Greater than 30 minutes Exam Vital Signs Temp Pulse Resp BP Pulse Ox O2 Del Method O2 Flow Rate 97.1 F 85 15 193/105 H 97 Nasal Cannula 2 07/23/24 08:00 07/23/24 12:00 07/23/24 08:00 07/23/24 12:00 07/23/24 08:00 07/23/24 08:00 07/23/24 08:00 Narrative Exam GEN: AOx3, able to speak full sentences HEENT: NC/AC, oral mucosa moist, neck supple CVS: RRR, S1-S2 present, no murmurs appreciated RESP: CTAB GI: soft,non distended, non tender, NBS MSK: Right fourth finger splinted, no discoloration, able to move distal phalanx. able to move all 4 limbs, no lower extremity edema SKIN: warm and dry RECREATION MANAGER: CN II-XII and Sensation grossly intact. Discharge Plan Plan Patient Disposition: HOME (Self Care) Patient condition on transfer: Stable Care Plan Goals: Patient is medically cleared for discharge Patient is recommended to follow-up with nephrology for further management of sodium and is recommended to continue with sodium 1 g p.o. daily Patient is also recommended to continue with levothyroxine at a reduced dose of 125 mcg p.o. immediately upon awakening in 3 hours from other medications Patient's trazodone dose was increased to 200 mg p.o. at bedtime and is recommended to discontinue the 100 mg dose Patient is recommended to follow-up with Dr. Maurer for her finger fracture on Patient is recommended to follow-up with primary care physician for further management of chronic conditions and iron deficiency anemia. Patient is being started on ferrous sulfate 325 mg to be taken every other day for further management anemia Continue antibiotic Cefdinir for two more days. App[facility]intment at [facility] for At 2pm with Magdalene Hernandezno adress:[address], [place] [address] Prescriptions/Referrals Prescriptions/Med Rec: New trazodone 50 mg Tablet 200 mg PO HS 30 Days Qty: 120 0RF levothyroxine 125 mcg Tablet 125 mcg PO ACBR 30 Days Qty: 30 0RF sodium chloride 1,000 mg Tablet,Soluble 1,000 mg PO QDAY 30 Days Qty: 30 0RF ferrous sulfate 325 mg (65 mg iron) tablet 325 mg PO Q OTHER DAY Qty: 30 0RF cefdinir 300 mg capsule 300 mg PO Q12H 2 Days Qty: 4 0RF Continued ergocalciferol (vitamin D2) 200 mcg/mL (8,000 unit/mL) Drops 10 mcg PO QDAY gabapentin 300 mg Capsule 300 mg PO HS Janumet 50-1,000 mg tablet 1 tab PO BID Patient Comments: TAKE 1 TABLET BY MOUTH TWICE A DAY hydrocodone-acetaminophen 5-325 mg tablet 1 - 2 tab PO Q6H MDD 8 PRN (Reason: pain) Qty: 30 0RF albuterol sulfate 90 mcg/actuation HFA aerosol inhaler 1 puff inhalation QID PRN (Reason: shortness of breath or wheezing) Qty: 8.5 0RF meloxicam 7.5 mg tablet 7.5 mg PO BID PRN (Reason: Muscle Pain) naproxen 375 mg tablet 375 mg PO TID Patient Comments: 1 TABLET 3 TIMES A DAY tizanidine 4 mg Tablet 4 mg HS PRN (Reason: Muscle Spasm) simvastatin 80 mg tablet 80 mg PO QDAY Patient Comments: TAKE 1 TABLET BY MOUTH EVERY DAY buspirone 10 mg tablet 10 mg PO QDAY Patient Comments: TAKE 1 TABLET BY MOUTH EVERY DAY hydroxyzine HCl 25 mg tablet 25 mg PO HS Patient Comments: TAKE 1 TABLET BY MOUTH EVERYDAY AT NIGHT Discontinued levothyroxine 150 mcg tablet 150 mcg PO QDAY Patient Comments: TAKE 1 TABLET BY MOUTH EVERY DAY trazodone 100 mg Tablet 200 mg PO HS sodium chloride 1,000 mg tablet,soluble 1,000 mg PO QDAY Qty: 10 0RF prednisone 50 mg tablet 50 mg PO QDAY Qty: 5 0RF sodium chloride 1,000 mg tablet,soluble 1,000 mg PO QDAY Qty: 30 0RF amoxicillin-pot clavulanate 875-125 mg tablet 1 tab PO BID Qty: 3 0RF Referrals: Magdalene Aquino NP [Primary Care Provider] - Kris Maurer MD [Physician] - Hardeep Rivers MD [Physician] - Soto Salomon MD [Physician] - Patient/Caregiver Discharge Instructions Discharge Activity: activity as tolerated Education Materials: Anemia, Understanding Urinary Tract ..., ED Hypothyroidism Print Language: Yoruba Stand Alone Forms: [facility]ale Award Info., Patient Portal Info Letter Discharge Order Discharge Orders: Discharge (Routine); Ordered 07/23/24 Ordered By: Selvin Sanchez Quality Discharge Quality Measures VTE prophylaxis MD Attestestation MD Attestation I have examined the patient, reviewed labs and imaging findings, discussed the case with the resident(s), and reviewed entered orders. I agree with the plan of care as outlined in this note. Dr. De Luna
[2024-07-23 12:52] VITALS: BP 147/80; PULSE 97; O2SAT 94
--- NOTE | 2024-07-23 18:11 | PC.CM ---
Addendum entered by Medardo Muse RN 07/23/24 18:25: Joryjalyn accepted the pt. Booked [facility]. Pending insurance auth and start of care date. Original Note: HH referral sent on [employer]. Awaiting responses. Pending start of care date.
--- NOTE | 2024-07-30 07:48 | PC.CC ---
Per Adalberto pt is refusing HH, pt PCP was notified by Adalberto, HH closed at this time
== END 2024-07-23 13:31 | disposition home health service (06) | DRG 426 ==
LOC: SERX 20:41 → SERHOLD 22:32 → S3SX 07-16 21:51
PROVIDERS: Nurse Practitioner Family; Specialist; Student in an Organized Health Care Education/Training Program; Admitting Provider Student in an Organized Health Care Education/Training Program; Emergency Provider Emergency Medicine; PCP Nurse Practitioner Family; Visit Provider Student in an Organized Health Care Education/Training Program
PROC: 0DJ08ZZ Inspection of Upper Intestinal Tract, Via Natural or Artificial Opening Endoscopic (ICD-10-PCS; CPT 43239; principal; 2024-07-18 12:00)
PROC: 0DJD8ZZ Inspection of Lower Intestinal Tract, Via Natural or Artificial Opening Endoscopic (ICD-10-PCS; CPT 45378; principal; 2024-07-22 14:00)
DX: E87.1 Hypo-osmolality and hyponatremia (principal); E86.0 Dehydration; N17.9 Acute kidney failure, unspecified; S62.614A Displaced fracture of proximal phalanx of right ring finger, initial encounter for closed fracture; N12 Tubulo-interstitial nephritis, not specified as acute or chronic; D50.9 Iron deficiency anemia, unspecified; B37.89 Other sites of candidiasis; K29.70 Gastritis, unspecified, without bleeding; K44.9 Diaphragmatic hernia without obstruction or gangrene; E11.65 Type 2 diabetes mellitus with hyperglycemia; E11.40 Type 2 diabetes mellitus with diabetic neuropathy, unspecified; E86.1 Hypovolemia; G89.29 Other chronic pain; G93.41 Metabolic encephalopathy; K21.01 Gastro-esophageal reflux disease with esophagitis, with bleeding; K64.8 Other hemorrhoids; E78.00 Pure hypercholesterolemia, unspecified; E03.9 Hypothyroidism, unspecified; L30.4 Erythema intertrigo; F41.9 Anxiety disorder, unspecified; Z66 Do not resuscitate; Z85.038 Personal history of other malignant neoplasm of large intestine; Z78.1 Physical restraint status; Z90.49 Acquired absence of other specified parts of digestive tract; Z79.890 Hormone replacement therapy; Z79.899 Other long term (current) drug therapy; Z79.84 Long term (current) use of oral hypoglycemic drugs; W19.XXXA Unspecified fall, initial encounter; Y92.009 Unspecified place in unspecified non-institutional (private) residence as the place of occurrence of the external cause
CPT/HCPCS: 36415; 36600; 70450; 71046; 73120; 74176; 80048; 80053; 80307; 81001; 82010; 82150; 82607; 82728; 82746; 82803; 83036; 83540; 83550; 83690; 83735; 83880; 84100; 84295; 84439; 84443; 84484; 85025; 85610; 87040; 87077; 87086; 87186; 87502; 87634; 87811; 93005; 93225; 96361; 96365; 96366; 96367; 96372; 96374; 96375; 97162; 99285; A4217; J0360; J0696; J1200; J1630; J1643; J1815; J2060; J2175; J2250; J2405; J2470; J3010; J3475; J7030; J7050; J7070; J7120; A9270; J1644

== ENCOUNTER 2024-08-09 10:26 | Emergency (ER) | payer MEDICAID, SELFPAY ==
[2024-08-09 10:49] VITALS: BP 137/73; PULSE 87; RESP 17; TEMP 37; O2SAT 96; BMI 22.6
--- NOTE | 2024-08-09 11:12 | PD.EDRME ---
Rapid Medical Screening Exam RME Arrival date/time: 08/09/24 10:26 63-year-old female history of anemia sent over by her PCP due to low hemoglobin and possible transfusion. I have greeted and performed a focused initial assessment of this patient. Initial appropriate labs ordered at this time. A comprehensive ED assessment and evaluation of the patient and analysis of all test and completion of medical decision making process will be conducted by additional ED provider. Chief Complaint: General Adult/Misc Complain Time Seen by Provider: 08/09/24 10:46 Vital signs: Vital Signs Temperature 98.6 F 08/09/24 10:49 Pulse Rate 87 08/09/24 10:49 Respiratory Rate 17 08/09/24 10:49 Blood Pressure 137/73 H 08/09/24 10:49 Pulse Oximetry (%) 96 08/09/24 10:49 Oxygen Delivery Method Room Air 08/09/24 10:49
[2024-08-09 11:57] LABS: Basophils # (Auto) 0.1 Thou/mm3 (0.0-0.2); Basophils % (Auto) 1 % (0-2.5); Eosinophils # (Auto) 0.3 Thou/mm3 (0.0-0.5); Eosinophils % (Auto) 4 % (0-10); Hematocrit 27.2 % (36.0-46.0); Immature Granulocytes % (Auto) 1 % (0-0); Immature Granulocytes Auto 0.05 Thou/mm3 (0.00-0.00); Lymphocytes # (Auto) 1.2 Thou/mm3 (1.0-4.8); Lymphocytes % (Auto) 18 % (10-50); Mean Corpuscular HGB Conc 30.9 g/dl (31.0-37.0); Mean Corpuscular Hemoglobin 23.3 pg (25.0-35.0); Mean Corpuscular Volume 75 fL (80-100); Monocytes # (Auto) 0.4 Thou/mm3 (0.0-0.8); Monocytes % (Auto) 6 % (0-12); Neutrophils # (Auto) 4.7 Thou/mm3 (1.8-7.7); Neutrophils % (Auto) 70 % (37-80); Nucleated Red Blood Cell % 0 /100 WBC (0); Platelet Count 284 Thou/mm3 (140-440); Red Blood Count 3.61 Miln/mm3 (4.00-5.20); White Blood Count 6.7 Thou/mm3 (3.6-11.0)
[2024-08-09 12:00] LABS: Hemoglobin 8.4 g/dL (12.0-16.0)
[2024-08-09 12:07] LABS: INR 0.9 (0.9-1.3); Prothrombin Time 10.4 Seconds (9.0-12.2)
[2024-08-09 12:13] LABS: Alanine Aminotransferase 7 U/L (10-49); Albumin, Serum 4.2 gm/dL (3.4-4.8); Albumin/Globulin Ratio 1.6 (1.2-2.2); Alkaline Phosphatase 169 U/L (46-116); Anion Gap 9 (7-16); Aspartate Amino Transferase 16 U/L (0-34); BUN/Creatinine Ratio 16 Ratio (12-20); Bilirubin,Total 0.4 mg/dL (0.3-1.2); Blood Urea Nitrogen 16 mg/dL (9-23); Calcium 9.2 mg/dL (8.3-10.6); Calcium (Corrected) 9.2 mg/dL (8.5-10.1); Carbon Dioxide 24.7 mMol/L (20.0-31.0); Chloride 100 mMol/L (98-107); Estimated Creatinine Clearance 54.6 mL/min (>60); Globulin 2.6 gm/dL (2.3-3.5); Glucose 262 mg/dL (74-106); Lipase 36 U/L (12-53); Osmolality,Calculated 278 (275-295); Sodium 134 mMol/L (136-145); Total Protein 6.8 gm/dL (5.7-8.2); eGFR > 60 See Note
--- NOTE | 2024-08-09 13:23 | PD.EDADULT ---
ED General RME/HPI General Chief complaint: General Adult/Misc Complain Stated complaint: NEED TRANSFUSION, SENT BY PMD Time Seen by Provider: 08/09/24 10:46 Arrival date/time: 08/09/24 10:26 RME / HPI RME / HPI narrative: 08/09/24 10:26 63-year-old female history of anemia sent over by her PCP due to low hemoglobin and possible transfusion. I have greeted and performed a focused initial assessment of this patient. Initial appropriate labs ordered at this time. A comprehensive ED assessment and evaluation of the patient and analysis of all test and completion of medical decision making process will be conducted by additional ED provider. DR. SM[facility] MAIN ED EVALUATION 63 year old female presents to the ED sent by PCP for low hemoglobin levels. Reports she consulted with PCP due to feeling globally weak and while in the office had her hemoglobin checked that resulted low. While in the ED reports no bleeding or black stools. States her anemia has been worked up as an outpatient. Takes iron daily. Denies fevers, chills, sweats. Denies chest pain, cough, shortness of breath. Denies nausea, vomiting, diarrhea, constipation. Denies dysuria, urinary frequency and urgency. Related Data Home Medications ?Medication ?Instructions ?Recorded ?Confirmed ergocalciferol (vitamin D2) 200 10 mcg PO QDAY 10/21/22 07/16/24 mcg/mL (8,000 unit/mL) oral drops gabapentin 300 mg capsule 300 mg PO HS 01/27/23 07/16/24 sitagliptin phosphate 50 1 tab PO BID 01/28/23 07/16/24 mg-metformin 1,000 mg tablet (Janumet) buspirone 10 mg tablet 10 mg PO QDAY 03/18/23 07/16/24 hydroxyzine HCl 25 mg tablet 25 mg PO HS 03/18/23 07/16/24 meloxicam 7.5 mg tablet 7.5 mg PO BID PRN Muscle Pain 03/18/23 07/16/24 naproxen 375 mg tablet 375 mg PO TID 03/18/23 07/16/24 simvastatin 80 mg tablet 80 mg PO QDAY 03/18/23 07/16/24 tizanidine 4 mg tablet 4 mg HS PRN Muscle Spasm 03/18/23 07/16/24 Previous Rx's ?Medication ?Instructions ?Recorded hydrocodone 5 mg-acetaminophen 325 1 - 2 tab PO Q6H PRN pain #30 tabs 06/20/23 mg tablet albuterol sulfate 90 mcg/actuation 1 puff inhalation QID PRN 09/14/23 aerosol inhaler shortness of breath or wheezing #8.5 grams ferrous sulfate 325 mg (65 mg 325 mg PO Q OTHER DAY #30 tabs 07/23/24 iron) tablet levothyroxine 125 mcg tablet 125 mcg PO ACBR 30 days #30 tabs 07/23/24 sodium chloride 1,000 mg soluble 1,000 mg PO QDAY 30 days #30 tabs 07/23/24 tablet trazodone 50 mg tablet 200 mg (4 x 50 mg) PO HS 30 days 07/23/24 #120 tabs Allergies Allergy/AdvReac Type Severity Reaction Status Date / Time No Known Allergies Allergy Verified 08/09/24 10:28 Review of Systems Review of Systems Narrative Review of Systems: GEN: No fever, no chills, no weight loss EYES: No discharge, no visual changes, no pain HEENT: No ear pain, no congestion, no sore throat PULM: No shortness of breath, no cough, no congestion CV: No chest pain, no dyspnea on exertion, no palpitations GI: No nausea, no vomiting, no diarrhea, no pain, no constipation : No frequency, no urgency, no dysuria MUSC/SKEL: No joint pain, no back pain SKIN: No rash NEURO: No weakness, no headache Past Medical History Past Medical History NEUROLOGIC: Positive Cerebrovascular Accident CARDIAC: Positive Hypercholesterolemia GASTROINTESTINAL: Positive Gastrointestinal Disorders, Colorectal Cancer, Hemorrhoids and Gastroesophageal Reflux Disease REPRODUCTIVE: Positive Previous Pregnancies MUSCULOSKELETAL: Positive Musculoskeletal Disorders and Arthritis ENDOCRINE: Positive Endocrine Disorders, Diabetes Mellitus Type 2 and Hypothyroidism OTHER HISTORY: Positive Chemotherapy, Radiation Therapy, Chicken Pox, Measles, Cancer and Colorectal Cancer Family History FAMILY HISTORY: Positive Family Cardiac Disorders, Family Cancer and Family Surgery Surgical History SURGICAL: Positive Throat Surgery (THYROIDECTOMY), Bowel Surgery and Arthroscopy (right knee) Social History SMOKING STATUS: Never smoker SUBSTANCE USE: does not use ED Exam Narrative Physical exam: GENERAL APPEARANCE: alert and oriented x 4, well-developed, well-nourished, no acute distress; mild pallor HEENT: Normocephalic, atraumatic; pupils equal, round, reactive to light; EOMI; mucous membranes pink, moist; oropharynx clear NECK: Supple LUNGS: CTABL; no wheezes, no rales, no rhonchi HEART: 1/6 systolic murmur in the left sternal border non-radiating; Regular rate, regular rhythm; normal S1, S2 ABDOMEN: non distended; normal BS; soft, no tenderness, no guarding, no rebound; no masses, no organomegaly, no hernia BACK: no CVA tenderness EXTREMITIES: atraumatic; no edema NEUROLOGIC: awake; alert and oriented x4; cranial nerves II-XII grossly intact; no focal sensory or motor deficits PSYCHIATRIC: appropriate mood and affect SKIN: warm, dry, mild pallor; no rashes Course Quality Measures none Orders Category Date Time Status Insert IV NOW Care 08/09/24 11:11 Completed NPO STAT Care 08/09/24 11:11 Completed Occult Blood,Stool (Nursing) NOW Care 08/09/24 11:11 Completed CBC Stat Lab 08/09/24 11:20 Completed Comprehensive Metabolic Panel Stat Lab 08/09/24 11:20 Completed Iron Panel Stat Lab 08/09/24 11:20 Completed Lipase Stat Lab 08/09/24 11:20 Completed Partial Thromboplastin Time Stat Lab 08/09/24 11:20 Completed Prothrombin Time with INR Stat Lab 08/09/24 11:20 Completed Reticulocyte Count Stat Lab 08/09/24 11:20 Completed Type and Screen Stat Lab 08/09/24 11:20 Completed Vital Signs Vital signs: Vital Signs Temperature 98.6 F 08/09/24 10:49 Pulse Rate 87 08/09/24 10:49 Respiratory Rate 17 08/09/24 10:49 Blood Pressure 137/73 H 08/09/24 10:49 Pulse Oximetry (%) 96 08/09/24 10:49 Oxygen Delivery Method Room Air 08/09/24 10:49 Pulse ox is 96% on room air which is adequate. [facility] Patient data External records reviewed:: [facility] previous records (I reviewed admission from 07/15/2024 through 07/23/2024) Clinical information provided by:: patient Social determinants that could affect healthcare access:: none Patient has the following chronic illnesses:: Colon CA s/p resection, hypothyroidism, diabetes, hyperlipidemia How is presenting disease/condition affected by chronic disease/condition?: exacerbated by Evaluation data The following diagnostics were reviewed and interpreted by me:: lab results Lab and/or radiology exams considered but not ordered:: None Interpretation Summary: H/H here 8.4 and 27.2 H/H chronically low dating back in 2021. Medications Medications considered but not ordered:: None Medication administrations:: None Consultations Consultation(s) initiated? (list below): No Diagnosis Differential Diagnosis ED Complaint MDM: Anemia, iron deficiency anemia, CKD, weakness Most likely diagnosis given after review of the tests above:: Anemia Admission Indicated Admission indicated?: not indicated Explain why admission is indicated or not indicated:: Patient has no emergent abnormalities on his studies and can be managed on an outpatient basis. Admission Request Was there a request for admission?: No Disposition Plan Disposition Plan: Discharge Discharge Attestation Discharge Attestation: The patient and all family members were given an opportunity to ask questions and understood the discharge instructions. Discharge instructions specifically effects, indications for sooner follow up or return to the emergency department, and the expected course of current diagnosis. Patient condition: Stable Medical Decision Making Differential Diagnosis Differential Diagnosis: Anemia, iron deficiency anemia, CKD, weakness Lab Data 08/09/24 11:20 08/09/24 11:20 Labs: Lab Results 08/09/24 Range/Units 11:20 WBC 6.7 (3.6-11.0) Thou/mm3 RBC 3.61 L (4.00-5.20) Miln/mm3 Hgb 8.4 L (12.0-16.0) g/dL Hct 27.2 L (36.0-46.0) % MCV 75 L (80-100) fL MCH 23.3 L (25.0-35.0) pg MCHC 30.9 L (31.0-37.0) g/dl RDW Std Deviation 48.0 H (36.4-46.3) fL Plt Count 284 D (140-440) Thou/mm3 Neut % (Auto) 70 (37-80) % Lymph % (Auto) 18 (10-50) % Kings % (Auto) 6 (0-12) % Eos % (Auto) 4 (0-10) % Baso % (Auto) 1 (0-2.5) % Neut # (Auto) 4.7 (1.8-7.7) Thou/mm3 Lymph # (Auto) 1.2 (1.0-4.8) Thou/mm3 Kings # (Auto) 0.4 (0.0-0.8) Thou/mm3 Eos # (Auto) 0.3 (0.0-0.5) Thou/mm3 Baso # (Auto) 0.1 (0.0-0.2) Thou/mm3 Immature Gran # (Auto) 0.05 H (0.00-0.00) Thou/mm3 Absolute Nucleated RBC 0.00 (0.00-0.00) Thou/mm3 Immature Gran % 1 H (0-0) % Nucleated RBC % 0 (0) /100 WBC Retic Count (auto) 2.8 H (0.5-1.5) % Absolute Retic 100.5 H (25.0-75.0) Biln/L Immature Retic Fraction 28.4 H (3.0-15.9) % Retic Hgb Content CHr 27.2 L (28.0-35.0) pg PT 10.4 (9.0-12.2) Seconds INR 0.9 (0.9-1.3) APTT 24.0 (22.0-36.0) Seconds Sodium 134 L (136-145) mMol/L Potassium 5.0 (3.4-5.1) mMol/L Chloride 100 (98-107) mMol/L Carbon Dioxide 24.7 (20.0-31.0) mMol/L Anion Gap 9 (7-16) BUN 16 (9-23) mg/dL Creatinine 1.0 (0.6-1.3) mg/dL Estim Creat Clear Calc 54.6 L (>60) mL/min eGFR > 60 (60 - ) See Note BUN/Creatinine Ratio 16 (12-20) Ratio Glucose 262 H (74-106) mg/dL Calculated Osmolality 278 (275-295) Calcium 9.2 (8.3-10.6) mg/dL Corrected Calcium 9.2 (8.5-10.1) mg/dL Iron 132 (50-170) mcg/dL TIBC 396 (250-425) mcg/dL Iron Saturation 33 (20-55) % Unsat Iron Binding 264 (225-295) Total Bilirubin 0.4 (0.3-1.2) mg/dL AST 16 (0-34) U/L ALT 7 L (10-49) U/L Alkaline Phosphatase 169 H (46-116) U/L Total Protein 6.8 (5.7-8.2) gm/dL Albumin 4.2 (3.4-4.8) gm/dL Globulin 2.6 (2.3-3.5) gm/dL Albumin/Globulin Ratio 1.6 (1.2-2.2) Lipase 36 (12-53) U/L Blood Type O Positive Antibody Screen NEGATIVE Blood Bank Wristband ID Yes Discharge Plan Plan Patient Disposition: HOME (Self Care) Prescriptions/Referrals Prescriptions/Med Rec: No Action ergocalciferol (vitamin D2) 200 mcg/mL (8,000 unit/mL) Drops 10 mcg PO QDAY gabapentin 300 mg Capsule 300 mg PO HS Janumet 50-1,000 mg tablet 1 tab PO BID Patient Comments: TAKE 1 TABLET BY MOUTH TWICE A DAY hydrocodone-acetaminophen 5-325 mg tablet 1 - 2 tab PO Q6H MDD 8 PRN (Reason: pain) Qty: 30 0RF albuterol sulfate 90 mcg/actuation HFA aerosol inhaler 1 puff inhalation QID PRN (Reason: shortness of breath or wheezing) Qty: 8.5 0RF trazodone 50 mg Tablet 200 mg PO HS 30 Days Qty: 120 0RF levothyroxine 125 mcg Tablet 125 mcg PO ACBR 30 Days Qty: 30 0RF sodium chloride 1,000 mg Tablet,Soluble 1,000 mg PO QDAY 30 Days Qty: 30 0RF ferrous sulfate 325 mg (65 mg iron) tablet 325 mg PO Q OTHER DAY Qty: 30 0RF meloxicam 7.5 mg tablet 7.5 mg PO BID PRN (Reason: Muscle Pain) naproxen 375 mg tablet 375 mg PO TID Patient Comments: 1 TABLET 3 TIMES A DAY tizanidine 4 mg Tablet 4 mg HS PRN (Reason: Muscle Spasm) simvastatin 80 mg tablet 80 mg PO QDAY Patient Comments: TAKE 1 TABLET BY MOUTH EVERY DAY buspirone 10 mg tablet 10 mg PO QDAY Patient Comments: TAKE 1 TABLET BY MOUTH EVERY DAY hydroxyzine HCl 25 mg tablet 25 mg PO HS Patient Comments: TAKE 1 TABLET BY MOUTH EVERYDAY AT NIGHT Referrals: Magdalene Aquino [employer] [Primary Care Provider] - In 1 week Problem List Clinical Impression: Anemia Patient/Caregiver Discharge Instructions Education Materials: ED Anemia Type Not Specified Print Language: Thai Stand Alone Forms: [employer] Award Info., Patient Portal Info Letter
[2024-08-09 13:27] VITALS: BP 192/108; PULSE 74; RESP 19; TEMP 36.8; O2SAT 100
[2024-08-09 13:50] LABS: Immature Reticulocyte Fraction 28.4 % (3.0-15.9); Reticulocyte % (Auto) 2.8 % (0.5-1.5); Reticulocyte Absolute Auto 100.5 Biln/L (25.0-75.0); Reticulocyte Hgb Content 27.2 pg (28.0-35.0)
[2024-08-09 14:12] VITALS: BP 192/108; PULSE 74; RESP 19; TEMP 36; O2SAT 100
[2024-08-09 14:12] LABS: Iron 132 mcg/dL (50-170); Percent Iron Saturation 33 % (20-55); Total Iron Binding Capacity 396 mcg/dL (250-425); Unsaturated Iron Binding 264 (225-295)
[2024-08-09 15:00] VITALS: BP 184/83; PULSE 85; RESP 18; TEMP 36.9; O2SAT 98
== END 2024-08-09 15:00 | disposition home or self-care (01) ==
PROVIDERS: Nurse Practitioner Primary Care; Emergency Provider Emergency Medicine; PCP Nurse Practitioner Family
DX: D64.9 Anemia, unspecified (principal)
CPT/HCPCS: 36415; 80053; 81001; 83540; 83550; 83690; 85025; 85046; 85610; 85730; 86850; 86900; 86901; 99283

== ENCOUNTER → 2024-08-21 | Outpatient (CLI) | payer MEDICAID, SELFPAY ==
--- NOTE | 2024-08-21 14:20 | XR_ITS ---
Examination: Hand, right 3 views Technique: Hand AP, oblique, lateral 3 views Date and time of exam: August 13, 2024 1427 hours INDICATIONS: Patient fell June 2024 with fracture proximal phalanx fourth digit, acute comminuted fractures proximal phalanx fourth digit FINDINGS: Comminuted fractures proximal phalanx fourth digit On this study there is up to 4.3 mm separation of the main fracture fragments Abundant bone callus is not identified IMPRESSION: Interval more pronounced separation of the main fracture fragments proximal phalanx fourth digit
== END | disposition home or self-care (01) ==
LOC: CDIM 14:00
PROVIDERS: PCP Nurse Practitioner Family; Referring Provider Orthopaedic Surgery; Visit Provider Orthopaedic Surgery
DX: S62.614A Displaced fracture of proximal phalanx of right ring finger, initial encounter for closed fracture (principal); W19.XXXA Unspecified fall, initial encounter
CPT/HCPCS: 73130

== ENCOUNTER 2024-09-14 12:57 | Emergency (ER) | payer MEDICAID, SELFPAY ==
[2024-09-14 12:58] VITALS: BMI 22.6
[2024-09-14 13:31] VITALS: BP 182/103; PULSE 86; RESP 16; TEMP 36.8; O2SAT 96
--- NOTE | 2024-09-14 13:34 | XR_ITS ---
Examination: CT brain head without contrast. 2-D sagittal coronal reconstructions Date and time of exam:September 14, 2024 1456 hours INDICATIONS: Patient fell today with injury to the head, head pain neck pain CTDI: vol (mGy):43.7 DLP: (mGycm):880 Technique: Multiple CT axial sections of the brain have been obtained, 5 mm slice thickness. Contrast has not been administered. 2-D sagittal, coronal reconstructions have been obtained Low dose protocols were performed. One or more of the following dose reduction techniques were used; automated exposure control, adjustment of the mA and/or KV according to patient size, use of iterative reconstruction technique. Findings: No significant ventricular enlargement. Intra-axial or extra-axial hemorrhage density is not seen. No mass effect or midline shift Basal cisterns are not remarkable. Fourth ventricle is midline. Cranial vault intact. Impression: Negative for acute hemorrhage, mass effect or midline shift
--- NOTE | 2024-09-14 13:34 | XR_ITS ---
Examination: CT cervical spine without contrast 2-D sagittal reconstructions 2-D coronal reconstructions 3-D reconstructions. Exam date and time:September 14, 2024 1456 hours INDICATIONS: Patient fell today with injury of the neck, neck pain CTDI:vol (mGy) 7.92 DLP: (mGycm) 181 Technique: Multiple 2 mm axial sections of the cervical spine have been obtained. The coronal and sagittal reconstructions have been obtained. 3-D reconstructions have been obtained. Low dose protocols were performed. One or more of the following dose reduction techniques were used; automated exposure control, adjustment of the mA and/or KV according to patient size, use of iterative reconstruction technique. Findings: Axial sections demonstrate intact base of the skull. Minimal anterolisthesis C3 on C4 Advanced disc narrowing C5-C6 C1 exhibit satisfactory relationship to the odontoid. No acute cervical vertebral body fracture seen. Alignment posterior spinous processes satisfactory. Impression: No acute cervical fracture.
--- NOTE | 2024-09-14 13:34 | XR_ITS ---
Examination: Shoulder,right, 3 views Technique: Shoulder AP internal rotation, AP external rotation, Y view shoulder, 3 views Exam date and time :September 14, 2024 1359 hours INDICATIONS: Patient fell today with injury to the shoulder, shoulder pain. FINDINGS: Anterior subcoracoid shoulder dislocation Small old appearing bone densities adjacent to the bony glenoid fossa Clavicle scapula intact IMPRESSION: Anterior subcoracoid shoulder dislocation
--- NOTE | 2024-09-14 13:36 | EDNOTE_ITS ---
<Statement entered by Tiffanie Mccormack MD - 09/15/24 18:38> As co-signing physician, I was present and available for consult prn. I concur with the plan and care as documented by the midlevel provider. ED Fall Injury RME/HPI General Chief Complaint: Fall Stated Complaint: FALL WITH RIGHT ARM/SHOULDER PAIN Time Seen by Provider: 09/14/24 13:22 Arrival date/time: 09/14/24 12:57 RME / HPI RME / HPI Narrative: 64-year-old female patient came in for evaluation regarding right shoulder pain. Patient sustained a fall while] seen resulting in the pain to the right shoulder described as sharp pain severity 10 out of 10 worse with range of motion of the shoulder. Patient also complained of neck pain severity mild. Denies any LOC denies any headache denies any other complaints no medication was taken prior to arrival. Related Data Home Medications ?Medication ?Instructions ?Recorded ?Confirmed ergocalciferol (vitamin D2) 200 10 mcg PO QDAY 07/16/24 mcg/mL (8,000 unit/mL) oral drops gabapentin 300 mg capsule 300 mg PO HS 01/27/23 sitagliptin phosphate 50 1 tab PO BID 01/28/23 mg-metformin 1,000 mg tablet (Janumet) buspirone 10 mg tablet 10 mg PO QDAY 03/18/2307/16 hydroxyzine HCl 25 mg tablet 25 mg PO HS 03/18/2306/25 meloxicam 7.5 mg tablet 7.5 mg PO BID PRN Muscle Shivani n 03/18/23 07/16/24 naproxen 375 mg tablet 375 mg PO TID 03/18/2307/16 simvastatin 80 mg tablet 80 mg PO QDAY 03/18/2307/16 tizanidine 4 mg tablet 4 mg HS PRN Muscle Spasm 07/16/24 Previous Rx's ?Medication ?Instructions ?Recorded hydrocodone 5 mg-acetaminophen 325 1 - 2 tab PO Q6H [place] pain #30 tabs 06/20/23 mg tablet albuterol sulfate 90 mcg/actuation 1 puff inhalation Q ID PRN 09/14/23 aerosol inhaler shortness of breath or wheez ing #8.5 grams ferrous sulfate 325 mg (65 mg 325 mg PO Q OTHER DAY #3 0 tabs 07/23/24 iron) tablet acetaminophen 300 mg-codeine 30 mg 1 tab PO Q8H PRN pa in #20 tabs 09/14/24 tablet Allergies Allergy/AdvReac Type Severity Reaction Status Date / Time No Known Allergies Allergy Verified 09/14/24 13:01 Review of Systems Review of Systems Narrative Review of Systems: Review of system reviewed and within normal limits except mentioned in HPI ED Exam Narrative Physical exam: VITAL SIGNS: Reviewed. GENERAL APPEARANCE: Alert and interactive, follows commands, no acute distress, HEAD AND FACE: Non-traumatic. ENT: PERRL, pink conjunctivitis, eyelid no trauma, Mucous membrane moist. NECK: Supple, nontender, no nuchal rigidity. CHEST: No tenderness, no crepitus, no paradoxical movement, no retractions. LUNGS: Clear, well ventilated, symmetric, no rales, no wheezing, no ronchi, no stridor, good breath sounds bilaterally. HEART: Regular rate, regular rhythm, no murmur, no gallops. ABDOMEN: Soft, positive bowel sounds, nondistended, no guarding, nontender, no rebound, no masses, RECTAL: Deferred. GENITAL: Deferred. NEUROLOGICAL: Gross motor function intact sensory function intact, Appropriate for age. MUSCULOSKELETAL: low back nontender, full range of motion. EXTREMITIES: Right shoulder deformity, tenderness, with limitation range of motion. Distal neurovascular status intact on the right upper extremity SKIN: Color pink, dry, no rash, no lacerations, no abrasions, no contusions. LYMPHATICS: Deferred. Course Quality Measures none Orders Category Date Time Status Confirm (Xray) Before DC NOW Care 09/14/24 17:55 Active Conscious Sedation [RT Stand By for Procedure] NOW Care 09/14/24 17:15 Active Procedural Sedation NOW Care 09/14/24 17:[address] cervical spine wo con Stat Exams 09/14/24 13:[address] head/brain wo con Stat Exams 09/14/24 13:34 Completed XR shoulder RT min 2V Stat Exams 09/14/24 13:34 Completed XR shoulder RT min 2V Stat Exams 09/14/24 18:04 Completed HYDROcodone/APAP 10/325 [Verdi 10/325] Med 09/14/24 19:05 Discontinued 1 tab PO X1 ONE Labetalol IV [Trandate IV] Med 09/14/24 18:38 Discontinued 20 mg IVP X1 ONE Morphine Inj Med 09/14/24 13:34 Discontinued 5 mg IM X1 ONE Ondansetron Odt [Zofran Odt] Med 09/14/24 13:34 Discontinued 4 mg PO X1 ONE Propofol Inj [Diprivan Inj] Med 09/14/24 17:06 Discontinued 150 mg IV X1 ONE Vital Signs Vital signs: Vital Signs Temperature 98.3 F 09/14/24 13:31 Pulse Rate 86 09/14/24 13:31 Respiratory Rate 16 09/14/24 13:31 Blood Pressure 182/103 H 09/14/24 13:31 Pulse Oximetry (%) 96 09/14/24 13:31 Oxygen Delivery Method Room Air 09/14/24 13:31 Procedures -ED Orthopedic Joint Reduction Joint #1: Time Out Performed: Yes Side: Right Joint Reduction Location: shoulder Analgesia: procedural sedation Shoulder Technique Used (if applicable): external rotation Post-reduction neuro exam: intact and no change Post-reduction vascular: intact and no change Post Reduction X-Ray Obtained: Yes Post Reduction X-Ray Results: reduced Patient Tolerated Procedure: well and no complications Additional Comments: Arm sling applied Fall [facility] Narrative [facility] Narrative:: 64-year-old female patient came in for evaluation regarding right shoulder pain. Patient sustained a fall while] seen resulting in the pain to the right shoulder described as sharp pain severity 10 out of 10 worse with range of motion of the shoulder. Patient also complained of neck pain severity mild. Denies any LOC denies any headache denies any other complaints no medication was taken prior to arrival. Close reduction was done by me, procedural sedation done by Dr. Stratton Patient tolerated the procedure well See procedure notes CT scan of the head came back unremarkable CT scan of the neck came back unremarkable x-ray of the shoulder showed right anterior shoulder dislocation. Postreduction x-ray showed reduction complete. Patient data External records reviewed:: None Clinical information provided by:: patient Social determinants that could affect healthcare access:: none Patient has the following chronic illnesses:: Hypertension How is presenting disease/condition affected by chronic disease/condition?: uneffected by Evaluation data The following diagnostics were reviewed and interpreted by me:: radiology exam(s) Lab and/or radiology exams considered but not ordered:: None Interpretation Summary: See results in MDM Medications / Prescriptions Medications or Prescriptions considered but not ordered:: None Medication administrations:: Medication Administration History Discontinued Medications Hydrocodone Bitart/Acetaminophen (Hydrocodone/Apap 10/325 Tab) 1 tab PO X1 ONE Stop: 09/14/24 19:06 Labetalol HCl (Labetalol Inj 5 Mg/Ml Vial 20 Ml) 20 mg IVP X1 ONE Stop: 09/14/24 18:39 Last Admin: 09/14/24 18:41 Dose: 20 mg Documented By: KAYLAH Morphine Sulfate (Morphine Sulf Inj 10 Mg/Ml Vial) 5 mg IM X1 ONE Stop: 09/14/24 13:35 Last Admin: 09/14/24 13:45 Dose: 5 mg Documented By: Ondansetron HCl (Ondansetron Odt 4 Mg Tabrap) 4 mg PO X1 ONE; Protocol Stop: 09/14/24 13:35 Last Admin: 09/14/24 13:45 Dose: 4 mg Documented By: Propofol (Propofol Inj 10 Mg/Ml Vial 20 Ml) 150 mg IV X1 ONE Stop: 09/14/24 17:07 Last Admin: 09/14/24 18:14 Dose: 80 mg Documented By: ERICKA Comments: PER DR. STRATTON Morphine labetalol Verdi Consultations Consultation(s) initiated? (list below): No Diagnosis Fall Differential Diagnosis: dislocation of shoulder region and other (Right shoulder dislocation, status post fall intracranial bleed, neck pain) Most likely diagnosis given after review of the tests above:: Right shoulder dislocation status post fall Admission Indicated Admission indicated?: not indicated Admission Request Was there a request for admission?: No Disposition Plan Disposition Plan: Discharge Discharge Attestation Discharge Attestation: The patient was given an opportunity to ask questions and understood the discharge instructions. Discharge instructions specifically effects, indications for sooner follow up or return to the emergency department, and the expected course of current diagnosis. Patient condition: Stable Discharge Plan Plan Patient Disposition: HOME (Self Care) Disposition Comment: stable Prescriptions/Referrals Prescriptions/Med Rec: New acetaminophen-codeine 300-30 mg tablet 1 tab PO Q8H PRN (Reason: pain) Qty: 20 0RF No Action ergocalciferol (vitamin D2) 200 mcg/mL (8,000 unit/mL) Drops 10 mcg PO QDAY gabapentin 300 mg Capsule 300 mg PO HS Janumet 50-1,000 mg tablet 1 tab PO BID Patient Comments: TAKE 1 TABLET BY MOUTH TWICE A DAY hydrocodone-acetaminophen 5-325 mg tablet 1 - 2 tab PO Q6H MDD 8 PRN (Reason: pain) Qty: 30 0RF albuterol sulfate 90 mcg/actuation HFA aerosol inhaler 1 puff inhalation QID PRN (Reason: shortness of breath or wheezing) Qty: 8.5 0RF ferrous sulfate 325 mg (65 mg iron) tablet 325 mg PO Q OTHER DAY Qty: 30 0RF meloxicam 7.5 mg tablet 7.5 mg PO BID PRN (Reason: Muscle Pain) naproxen 375 mg tablet 375 mg PO TID Patient Comments: 1 TABLET 3 TIMES A DAY tizanidine 4 mg Tablet 4 mg HS PRN (Reason: Muscle Spasm) simvastatin 80 mg tablet 80 mg PO QDAY Patient Comments: TAKE 1 TABLET BY MOUTH EVERY DAY buspirone 10 mg tablet 10 mg PO QDAY Patient Comments: TAKE 1 TABLET BY MOUTH EVERY DAY hydroxyzine HCl 25 mg tablet 25 mg PO HS Patient Comments: TAKE 1 TABLET BY MOUTH EVERYDAY AT NIGHT Referrals: Magdalene Aquino CLINICAL DATA ANALYST [Primary Care Provider] - In 1 week Problem List Clinical Impression: Anterior dislocation of right shoulder Patient/Caregiver Discharge Instructions Discharge Activity: activity as tolerated Education Materials: ED Dislocation: Shoulder (Reduced) Additional Instructions: Thank you for the opportunity for serving you today. You are stable for discharged . You are advised to: Follow-up with your PCP in 1 to 2 days Return to ED for worsening of symptoms Increase oral fluids Take medication as prescribed Wear your arm sling for the next 2 weeks Print Language: [place] Stand Alone Forms: [employer] Award Info., Patient Portal Info Letter PA/MARIA INES Supervising Physician MARIO/MARIA INES Supervising Physician: MD Ksenia
[2024-09-14] MEDS: ONDANSETRON ODT 4 MG TABRAP PO (13:45)
[2024-09-14] MEDS: MORPHINE SULF INJ 10 MG/ML VIAL 5 MG IM (13:45)
--- NOTE | 2024-09-14 18:04 | XR_ITS ---
Examination: Shoulder,right, 3 views Technique: Shoulder AP internal rotation, AP external rotation, Y view shoulder, 3 views Exam date and time :September 14, 2024 1802 hrs. Comparison September 14, 2024 1559 hrs. Indications: Shoulder dislocation today post reduction films Findings: Satisfactory reduction shoulder dislocation Advanced narrowing glenohumeral joint No acute fracture depicted Impression: Successful reduction shoulder dislocation
[2024-09-14 18:08] VITALS: PULSE 99; RESP 16; O2SAT 100
[2024-09-14 18:12] VITALS: BP 194/102; PULSE 98; RESP 18; TEMP 36.3; O2SAT 100
[2024-09-14] MEDS: PROPOFOL INJ 10 MG/ML VIAL 20 ML 150 MG IV (18:14)
[2024-09-14 18:41] VITALS: BP 187/113; PULSE 94
[2024-09-14] MEDS: LABETALOL INJ 5 MG/ML VIAL 20 ML 20 MG IVP (18:41)
[2024-09-14] MEDS: HYDROcodone/APAP 10/325 TAB PO (19:27)
[2024-09-14 19:28] VITALS: BP 179/99; PULSE 88; RESP 18; TEMP 36.7; O2SAT 95
== END 2024-09-14 20:00 | disposition home or self-care (01) ==
PROVIDERS: Emergency Provider Emergency Medicine; PCP Nurse Practitioner Family
DX: S43.014A Anterior dislocation of right humerus, initial encounter (principal); W19.XXXA Unspecified fall, initial encounter; M54.2 Cervicalgia
CPT/HCPCS: 23655; 70450; 72125; 73030; 96372; 96374; 99285; J2270; J2704; J3490; Q0162; A9270; J1920